=== PATIENT | female | born 1935 | race Caucasian/White ===

== ENCOUNTER 2018-04-24 07:48 | Inpatient (IN) | END 2018-04-25 13:13 | disposition home or self-care (01) | DRG 483 ==

== ENCOUNTER 2018-08-15 14:58 | Inpatient (IN) | payer MEDICARE, BC ==
[~2018-08-15] VITALS: Ht 160 cm; Wt 53.4 kg
[~2018-08-15 14:58] MED LIST: ACET-141 PO; APIX5TAB PO; CHOL500010 PO; CYAN100080 PO; ESOM40CA PO; LEVO125T71 PO; METO-335 PO; MIRT15TA PO; MULTI PO; NALO25TA PO; ONDA4TAB13 PO; PANT40TA3 PO; RANI300T PO
[2018-08-15] MEDS ORDERED: SOD CHLORIDE 0.9% 1,000 ML IV STA (18:10)
[2018-08-15] MEDS ORDERED: KETOROLAC 15 MG INJ IV STA (18:10)
--- NOTE | 2018-08-15 18:38 | ERD ---
ER Documentation Chief Complaint Chief Complaint RIGHT HIP/RIGHT SHOULDER PAIN S/P FALL AT 08/14 AT HS HPI 82-year-old woman brought in by EMS for left shoulder right hip pain after falling about half a days ago. She was laying on the floor for about 14 hours and had difficulty getting up after the fall. She is status post recent left shoulder arthroplasty. She has had no recent fevers or chills, and has no complaints of chest pain or shortness of breath. ROS All systems reviewed and are negative except as per history of present illness. Medications Home Meds Reported Medications Mirtazapine* (Remeron*) 15 Mg Tablet, 15 MG PO HS, TAB 04/24/18 Ranitidine Hcl* (Ranitidine Hcl*) 300 Mg Tablet, 300 MG PO HS, #30 TAB 04/24/18 Pantoprazole* (Protonix*) 40 Mg Tablet.dr, 40 MG PO BID, TAB 04/24/18 Ondansetron Hcl* (Zofran*) 4 Mg Tab, 4 MG PO Q6H PRN for NAUSEA AND OR VOMITING, TAB 04/24/18 Cholecalciferol (Vitamin D3) 5,000 Unit Tablet, 5000 UNIT PO DAILY, TAB 04/24/18 Cyanocobalamin* (Vitamin B-12*) 1,000 Mcg Tablet.sa, 1000 MCG PO DAILY, TAB 04/24/18 Apixaban* (Eliquis*) 5 Mg Tablet, 5 MG PO BID, TAB 04/24/18 Levothyroxine Sodium* (Levoxyl*) 125 Mcg Tablet, 125 MCG PO BEFORE BREAKFAST, #30 TAB 04/24/18 Metoprolol Succinate* (Toprol XL*) 25 Mg Tab.sr.24h, 25 MG PO BID, #30 TAB 04/24/18 Naloxegol Oxalate (Movantik) 25 Mg Tablet, 25 MG PO AC BREAKFAST, TAB 04/24/18 Multivitamins* (Theragran*) 1 Tab Tab, 1 TAB PO DAILY, TAB 04/24/18 Esomeprazole Mag Trihydrate (Nexium) 40 Mg Capsule.dr, 40 MG PO DAILY, #30 CAP 04/24/18 Acetaminophen* (Acetaminophen*) 500 MG Extra Strength Tablet, 500 MG PO Q4H PRN for PAIN AND OR ELEVATED TEMP, TAB 04/24/18 Allergies Allergies: Coded Allergies: morphine (Verified Allergy, Intermediate, itchiness, 08/15/18) PMhx/Soc Multiple orthopedic surgeries, gastritis, hypertension, hypothyroidism, osteoarthritis History of Surgery: Yes Anesthesia Reaction: No Hx Neurological Disorder: No Hx Respiratory Disorders: No Hx Cardiac Disorders: Yes (A.FIB) Hx Psychiatric Problems: No Hx Miscellaneous Medical Probl: No Hx Alcohol Use: No Hx Substance Use: No Hx Tobacco Use: No FmHx Family History: No diabetes Physical Exam Vitals Vital Signs Date Temp Pulse Resp B/P (MAP) Pulse Ox O2 O2 Flow FiO2 Time Delivery Rate 08/15/18 100.0 108 22 148/75 98 15:12 (99) Physical Exam Const: No acute distress, appears dehydrated, afebrile Head: Atraumatic Eyes: Normal Conjunctiva ENT: Dry mucous membranes Neck: Full range of motion. No meningismus. Resp: Clear to auscultation bilaterally Cardio: Tachycardic and regular, no murmurs Abd: Soft, non tender, non distended. Normal bowel sounds Skin: No petechiae or rashes, intact skin no obvious abrasions or contusions noted Back: No midline or flank tenderness Ext: Osteoarthritic changes noted to her knees with valgus deformity, she has near full range of motion at the left shoulder, no obvious soft tissue swelling ecchymosis, or hematomas noted Neur: Awake and alert x3, no focal deficits or facial asymmetry, pupils equal round reactive to light Psych: Normal Mood and Affect Result Diagram: 08/15/185 08/15/18 184 Results 24 hrs Laboratory Tests Test 08/15/18 18:45 08/15/18 19:30 White Blood Count 10.5 10^3/ul Red Blood Count 3.83 10^6/ul Hemoglobin 12.3 g/dl Hematocrit 35.6 % Mean Corpuscular Volume 93.0 fl Mean Corpuscular Hemoglobin 32.1 pg Mean Corpuscular Hemoglobin Concent 34.6 g/dl Red Cell Distribution Width 13.4 % Platelet Count 146 10^3/UL Mean Platelet Volume 10.5 fl Immature Granulocytes % 0.500 % Neutrophils % 89.3 % Lymphocytes % 2.0 % Monocytes % 7.8 % Eosinophils % 0.1 % Basophils % 0.3 % Nucleated Red Blood Cells % 0.0 /100WBC Immature Granulocytes # 0.050 10^3/ul Neutrophils # 9.3 10^3/ul Lymphocytes # 0.2 10^3/ul Monocytes # 0.8 10^3/ul Eosinophils # 0.0 10^3/ul Basophils # 0.0 10^3/ul Nucleated Red Blood Cells # 0.0 10^3/ul Prothrombin Time 16.1 Sec Prothrombin Time Ratio 1.3 INR International Normalized Ratio 1.28 Activated Partial Thromboplast Time 36.5 Sec Sodium Level 123 mmol/L Potassium Level 4.6 mmol/L Chloride Level 89 mmol/L Carbon Dioxide Level 26 mmol/L Anion Gap 8 Blood Urea Nitrogen 17 mg/dl Creatinine 0.68 mg/dl Est Glomerular Filtrat Rate mL/min mL/min Glucose Level 115 mg/dl Calcium Level 9.9 mg/dl Total Bilirubin 1.5 mg/dl Direct Bilirubin 0.00 mg/dl Indirect Bilirubin 1.5 mg/dl Aspartate Amino Transf (AST/SGOT) 65 IU/L Alanine Aminotransferase (ALT/SGPT) 41 IU/L Alkaline Phosphatase 174 IU/L Creatine Kinase 237 IU/L Troponin I < 0.012 ng/ml Total Protein 7.2 g/dl Albumin 4.5 g/dl Globulin 2.70 g/dl Albumin/Globulin Ratio 1.66 Lipase 51 U/L Urine Color YELLOW Urine Clarity CLEAR Urine pH 6.0 Urine Specific [place] 1.012 Urine Ketones TRACE mg/dL Urine Nitrite NEGATIVE mg/dL Urine Bilirubin NEGATIVE mg/dL Urine Urobilinogen NEGATIVE mg/dL Urine Leukocyte Esterase NEGATIVE [place]/ul Urine Microscopic RBC 6 /HPF Urine Microscopic WBC 0 /HPF Urine Hemoglobin 1+ mg/dL Urine Glucose NEGATIVE mg/dL Urine Total Protein NEGATIVE mg/dl Current Medications Medications Dose Sig/Melissa Start Time Status Last (Trade) Ordered Route PRN Stop Time Admin Dose Reason Admin Sodium 1,000 ml @ Q1H STAT 08/15/18 DC 08/15/18 Chloride 1,000 mls/hr IV 18:10 18:42 08/15/18 19:09 Ketorolac 15 mg ONCE STAT 08/15/18 DC 08/15/18 Tromethamine IV 18:10 18:42 (Toradol) 08/15/18 18:15 Procedures/MDM IV line was established patient was placed on printer floor covering assistant rhythm strip revealed a sinus tachycardia at 120 bpm with upright P and T waves. Patient was afebrile I administered 1 L normal saline IV for dehydration and Toradol 15 mg IV x1 EKG performed, read by me revealed a sinus tachycardia at 111 bpm, normal axis, narrow QRS complex, no concerning ST elevations or depressions noted One AP view of the chest performed, read by me reveals no acute infiltrates, normal mediastinum, sharp costophrenic and cardiac borders, no air under the diaphragm. Otherwise unremarkable chest x-ray. X-ray left shoulder 3V Interpreted by me: Bones: No fracture Joints: No dislocation Foreign body: Positive hemiarthroplasty X-ray Pelvis 1V Interpreted by me: Bones: Right medial pubis fracture Joints: No dislocation Foreign body: Bilateral hip arthroplasty with hardware in place X-ray right hip 2V Interpreted by me: Bones: No fracture Joints: No dislocation Foreign body: Hemiarthroplasty with hardware in place CT scan of the brain was negative for acute bleed mass or shift CT scan of the pelvis was performed,IMPRESSION: 1. Comminuted fracture of the right parasymphyseal region, and at the inferior right superior pubic ramus. 2. Nondisplaced fractures are seen at the inferior lateral right sacral ala. 3. Fracture of the anterior superior S3 vertebral body. 4. Bilateral hip arthroplasty, without evident hardware complication. CBC was normal, electrolytes revealed mild dehydration and hyponatremia, liver function tests normal, troponin negative, CK total within normal limits, UA negative for infection. Patient admitted to [facility] for continued medical management and orthopedic consultation, I spoke to orthopedic surgeon on-call Dr. Panchal who agreed to consult the patient Departure Diagnosis: Primary Impression: Pelvic fracture Encounter type: initial encounter Pelvic bone location: pubis Sublocation of pubis: other portion of pubis Fracture type: closed Laterality: right Qualified Codes: S32.591A - Other specified fracture of right pubis, initi al encounter for closed fracture Additional Impressions: Dehydration Acute hyponatremia Condition: GIO Naik MD Aug 15, 2018 18:38
[2018-08-15 20:45] VITALS: BP 146/89; PULSE 106; RESP 18
[2018-08-15 21:30] VITALS: Ht 160 cm; Wt 53.4 kg
[2018-08-15] MEDS ORDERED: ACETAMINOPHEN 500 MG TAB PO PRN (22:00)
[2018-08-15] MEDS ORDERED: ONDANSETRON 4 MG INJ IV PRN (22:00)
[2018-08-16 02:28] VITALS: BP 142/81; PULSE 112; RESP 19
[2018-08-16] MEDS: LEVOTHYROXINE 125 MCG TAB PO SCH (06:08)
[2018-08-16 07:55] VITALS: BP 141/85; PULSE 106; RESP 18
[2018-08-16] MEDS: POLYETHYLENE GLYCOL 17 GM PACKET PO SCH (09:00)
[2018-08-16] MEDS ORDERED: APIXABAN 5 MG TABLET PO SCH (09:00)
[2018-08-16] MEDS: CHOLECALCIFEROL 1,000 UNIT TAB PO SCH (09:08)
[2018-08-16] MEDS: MULTIVITAMINS THERAPEUTIC TAB PO SCH (09:08)
[2018-08-16] MEDS: DOCUSATE SODIUM 100 MG CAP PO SCH ×2 (09:08→20:44)
[2018-08-16] MEDS: PANTOPRAZOLE (EC) 40 MG TAB PO SCH (09:08)
[2018-08-16] MEDS: METOPROLOL (XL) 25 MG TAB PO SCH ×2 (09:09→20:46)
[2018-08-16] MEDS: CYANOCOBALAMIN 500 MCG TAB PO SCH (09:54)
--- NOTE | 2018-08-16 11:35 | CONS ---
Assessment/Plan Assessment/Plan Hospital Course (Demo Recall) This is a 82-year-old female who is 2 days after a ground-level fall who suffered a right pelvic ring fracture LC 1. This is stable. She can weight- bear as tolerated with a walker. There is no concerns with any acute injury to her left shoulder hemiarthroplasty. Plan: Weight-bear as tolerated with walker DVT prophylaxis: SCDs bilateral legs and Lovenox 40 mg daily times 6 weeks Physical therapy Continue follow-up with Dr. Elizalde as scheduled discharge planning follow-up In my clinic at [facility] in the [place] in 2 weeks Consultation Date/Type/Reason Admit Date/Time Aug 15, 2018 at 19:33 Date of Consultation: Aug 16, 2018 Date/Time of Note DATE: 08/16/18 TIME: 11:21 Hx of Present Illness Taya Parker is an 82-year-old female who presented to the emergency department at [facility] last night status post a ground-level fall. She fell night at her home. She was unable to get up and unfortunately remained on the floor overnight until Saturday. She denies any trauma to her head or loss of consciousness. She fell on her right side. And had right-sided hip pain. She sometimes uses a cane but was not using any gait aid at that time. Denies any numbness and tingling in any of her extremities. Of note she is almost 4 months status post left shoulder hemiarthroplasty by Dr. Arpit Elizalde. She underwent an office and the about a week and a half ago for what sounds like a suture abscess. She denies any increased pain or discomfort in h er shoulder after falling. Patient denies fever, chills, shortness of breath, chest pain, nausea/vomiting, constipation, diarrhea, numbness, and tingling. Past Medical History Home Meds Reported Medications Mirtazapine* (Remeron*) 15 Mg Tablet, 15 MG PO HS, TAB 04/24/18 Ranitidine Hcl* (Ranitidine Hcl*) 300 Mg Tablet, 300 MG PO HS, #30 TAB 04/24/18 Pantoprazole* (Protonix*) 40 Mg Tablet.dr, 40 MG PO BID, TAB 04/24/18 Ondansetron Hcl* (Zofran*) 4 Mg Tab, 4 MG PO Q6H PRN for NAUSEA AND OR VOMITING, TAB 04/24/18 Cholecalciferol (Vitamin D3) 5,000 Unit Tablet, 5000 UNIT PO DAILY, TAB 04/24/18 Cyanocobalamin* (Vitamin B-12*) 1,000 Mcg Tablet.sa, 1000 MCG PO DAILY, TAB 04/24/18 Apixaban* (Eliquis*) 5 Mg Tablet, 5 MG PO BID, TAB 04/24/18 Levothyroxine Sodium* (Levoxyl*) 125 Mcg Tablet, 125 MCG PO BEFORE BREAKFAST, # 30 TAB 04/24/18 Metoprolol Succinate* (Toprol XL*) 25 Mg Tab.sr.24h, 25 MG PO BID, #30 TAB 04/24/18 Naloxegol Oxalate (Movantik) 25 Mg Tablet, 25 MG PO AC BREAKFAST, TAB 04/24/18 Multivitamins* (Theragran*) 1 Tab Tab, 1 TAB PO DAILY, TAB 04/24/18 Esomeprazole Mag Trihydrate (Nexium) 40 Mg Capsule.dr, 40 MG PO DAILY, #30 CAP 04/24/18 Acetaminophen* (Acetaminophen*) 500 MG Extra Strength Tablet, 500 MG PO Q4H PRN for PAIN AND OR ELEVATED TEMP, TAB 04/24/18 Medications Current Medications Acetaminophen (Tylenol Tab) 500 mg Q4H PRN PO MILD PAIN(1-3)OR ELEVATED TEMP; Start 08/15/18 at 22:00 Apixaban (Eliquis) 5 mg BID PO Last administered on 08/16/18 09:08; Admin Dose 5 MG; Start 08/16/18 at 09:00 Cholecalciferol (Vitamin D) 5,000 unit DAILY PO Last administered on 08/16/18at 09:08; Admin Dose 5,000 UNIT; Start 08/16/18 at 09:00 Cyanocobalamin (Vitamin B12) 1,000 mcg DAILY PO Last administered on 08/16/18at 09:54; Admin Dose 1,000 MCG; Start 08/16/18 at 09:00 Levothyroxine Sodium (Synthroid) 125 mcg BEFORE BREAKFAST PO Last administered on 08/16/18at 06:08; Admin Dose 125 MCG; Start 08/16/18 at 07:00 Metoprolol Succinate (Toprol Xl) 25 mg BID PO Last administered on 2/23/19at 09:09; Admin Dose 25 MG; Start 08/16/18 at 09:00 Mirtazapine (Remeron) 15 mg HS PO ; Start 08/16/18 at 21:00 Multivitamins Therapeutic (Theragran) 1 tab DAILY PO Last administered on 08/16/18at 09:08; Admin Dose 1 TAB; Start 08/16/18 at 09:00 Pantoprazole (Protonix Tab) 40 mg DAILY PO Last administered on 08/16/18at 09:08; Admin Dose 40 MG; Start 08/16/18 at 09:00 Ondansetron HCl (Zofran Inj) 4 mg Q6H PRN IV NAUSEA AND/OR VOMITING; Start 08/15/18 at 22:00 Polyethylene Glycol (Miralax) 17 gm DAILY PO ; Start 08/16/18 at 09:00 Docusate Sodium (Colace) 100 mg BID PO Last administered on 08/16/18at 09:08; Admin Dose 100 MG; Start 08/16/18 at 09:00 Acetaminophen/ Hydrocodone Bitart ([place] (5/325)) 1 tab Q4H PRN PO MODERATE PAIN LEVEL 4-6; Start 08/15/18 at 22:30 Allergies: Coded Allergies: morphine (Verified Allergy, Intermediate, itchiness, 08/15/18) Social History Alcohol Use: occasionally Smoking Status: Former smoker Exam/Review of Systems Exam Vitals Vital Signs Date Temp Pulse Resp B/P (MAP) Pulse Ox O2 O2 Flow FiO2 Time Delivery Rate 08/16/18 97.9 106 18 141/85 90 Room Air 07:55 (103) Exam General: Awake, alert, in no acute distress, pleasant and cooperative Heart: regular rhythm Lungs: breathing comfortably, no tachypnea or dyspnea MUSCULOSKELETAL: Left upper extremity: Incision is clean dry and intact except for a 2 mm area with an eschar. There is no erythema or swelling. Patient is able to forward flex and abduct approximately 90 degrees. Sensation intact to light touch in a median, ulnar, radial, and axillary distribution. Motor is intact in a median, ulnar, radial, anterior interosseous, and posterior interosseous nerve distribution. Radial and ulnar artery are +2. Wrist extension and flexion are intact. Compartments are soft. Right lower extremity/pelvis: There is no gross deformity to the leg. There is no shortening or malrotation. There is groin pain to logroll. There is tenderness to palpation over the groin and right sacral ala. Patient is able to perform a straight leg raise but with pain. Sensation intact to light touch in a sural, saphenous, deep peroneal, superficial peroneal, medial and lateral plantar nerve distribution. Motor is intact, patient able to dorsiflex and plantarflex ankle and extend and flex great toe. Dorsalis Pedis pulse +2, Brisk capillary refill. Compartments are soft. Calves non-tender to palpation bilaterally. Results Result Diagram: 08/16/18 0431 08/16/18 0431 Results 24hrs Laboratory Tests Test 08/15/18 18:45 08/15/18 19:30 08/16/18 04:31 White Blood Count 10.5 7.0 # Red Blood Count 3.83 L 3.35 L Hemoglobin 12.3 10.9 L Hematocrit 35.6 L 31.1 L Mean Corpuscular Volume 93.0 92.8 Mean Corpuscular Hemoglobin 32.1 32.5 Mean Corpuscular Hemoglobin Concent 34.6 35.0 Red Cell Distribution Width 13.4 13.3 Platelet Count 146 115 #L Mean Platelet Volume 10.5 H 11.7 H Immature Granulocytes % 0.500 H 0.300 Neutrophils % 89.3 H 84.7 H Lymphocytes % 2.0 L 4.4 L Monocytes % 7.8 9.7 Eosinophils % 0.1 0.6 Basophils % 0.3 0.3 Nucleated Red Blood Cells % 0.0 0.0 Immature Granulocytes # 0.050 H 0.020 Neutrophils # 9.3 H 5.9 Lymphocytes # 0.2 L 0.3 L Monocytes # 0.8 0.7 Eosinophils # 0.0 0.0 Basophils # 0.0 0.0 Nucleated Red Blood Cells # 0.0 0.0 Prothrombin Time 16.1 H Prothrombin Time Ratio 1.3 INR International Normalized Ratio 1.28 Activated Partial Thromboplast Time 36.5 H Sodium Level 123 L 127 L Potassium Level 4.6 4.6 Chloride Level 89 L 93 L Carbon Dioxide Level 26 27 Anion Gap 8 7 Blood Urea Nitrogen 17 21 H Creatinine 0.68 0.88 Est Glomerular Filtrat Rate mL/min Glucose Level 115 82 Calcium Level 9.9 9.2 Total Bilirubin 1.5 H 1.3 Direct Bilirubin 0.00 0.00 Indirect Bilirubin 1.5 H 1.3 H Aspartate Amino Transf (AST/SGOT) 65 H 47 H Alanine Aminotransferase (ALT/SGPT) 41 26 Alkaline Phosphatase 174 H 126 H Creatine Kinase 237 H Troponin I < 0.012 Total Protein 7.2 5.7 #L Albumin 4.5 3.4 # Globulin 2.70 2.30 Albumin/Globulin Ratio 1.66 1.47 Lipase 51 Urine Color YELLOW Urine Clarity CLEAR Urine pH 6.0 Urine Specific [place] 1.012 Urine Ketones TRACE A Urine Nitrite NEGATIVE Urine Bilirubin NEGATIVE Urine Urobilinogen NEGATIVE Urine Leukocyte Esterase NEGATIVE Urine Microscopic RBC 6 H Urine Microscopic WBC 0 Urine Hemoglobin 1+ H Urine Glucose NEGATIVE Urine Total Protein NEGATIVE Thyroid Stimulating Hormone (TSH) < 0.015 L Imaging Imaging AP pelvis and AP lateral of right hip were reviewed: There is acute fracture of the right inferior and superior pubic rami. There is questionable fracture of the right sacral ala. She is status post bilateral total hip arthroplasties with no acute complications. CT scan of the pelvis: Acute fracture of the right inferior and superior pubic rami were again demonstrated. CT scan confirmed there is a comminuted nondisplaced right sacral ala fracture along the inferior portion of the sacrum. There is also nondisplaced S3 fracture. No periprosthetic fracture of bilateral total hip arthroplasties. 3 views of the left upper extremity: Left shoulder hemiarthroplasty again appreciated. The component is cemented. No change in position from previous x- ray. Humeral head is high riding which is consistent with rotator cuff tear. There is acetabular lesion of the acromion. Medications Medication Current Medications Acetaminophen (Tylenol Tab) 500 mg Q4H PRN PO MILD PAIN(1-3)OR ELEVATED TEMP; Start 08/15/18 at 22:00 Apixaban (Eliquis) 5 mg BID PO Last administered on 08/16/18at 09:08; Admin Dose 5 MG; Start 08/16/18 at 09:00 Cholecalciferol (Vitamin D) 5,000 unit DAILY PO Last administered on 08/16/18at 09:08; Admin Dose 5,000 UNIT; Start 08/16/18 at 09:00 Cyanocobalamin (Vitamin B12) 1,000 mcg DAILY PO Last administered on 08/16/18at 09:54; Admin Dose 1,000 MCG; Start 08/16/18 at 09:00 Levothyroxine Sodium (Synthroid) 125 mcg BEFORE BREAKFAST PO Last administered on 08/16/18 06:08; Admin Dose 125 MCG; Start 08/16/18 at 07:00 Metoprolol Succinate (Toprol Xl) 25 mg BID PO Last administered on 08/16/18 09:09; Admin Dose 25 MG; Start 08/16/18 at 09:00 Mirtazapine (Remeron) 15 mg HS PO ; Start 08/16/18 at 21:00 Multivitamins Therapeutic (Theragran) 1 tab DAILY PO Last administered on 08/16/18 09:08; Admin Dose 1 TAB; Start 08/16/18 at 09:00 Pantoprazole (Protonix Tab) 40 mg DAILY PO Last administered on 08/16/18at 09:08; Admin Dose 40 MG; Start 08/16/18 at 09:00 Ondansetron HCl (Zofran Inj) 4 mg Q6H PRN IV NAUSEA AND/OR VOMITING; Start 08/15/18 at 22:00 Polyethylene Glycol (Miralax) 17 gm DAILY PO ; Start 08/16/18 at 09:00 Docusate Sodium (Colace) 100 mg BID PO Last administered on 08/16/18at 09:08; Admin Dose 100 MG; Start 08/16/18 at 09:00 Acetaminophen/ Hydrocodone Bitart ([place] (5/325)) 1 tab Q4H PRN PO MODERATE PAIN LEVEL 4-6; Start 08/15/18 at 22:30 WILMAR MARTINEZ MD Aug 16, 2018 11:33
--- NOTE | 2018-08-16 14:38 | HP ---
Date/Time of Note Date/Time of Note DATE: 08/16/18 TIME: 14:21 Assessment/Plan VTE Prophylaxis Risk score (from Nsg)>0 risk: 5 SCD applied (from Nsg): Yes Pharmacological prophylaxis: apixaban Lines/Catheters IV Catheter Type (from Nrsg): Peripheral IV Assessment/Plan Hospital Course 82 y/o female with mmp admitted after glf resulting in pelvic fracture, being managed non operatively, planned for ARU transfer. Assessment/Plan #pelvic fracture -appreciate ortho recs -judicious pain management -wb as tolerated with walker -PT, ARU consult -already on eliquis #hyponatremia-likely 2/2 dehydration -will replete fluids with NS 70 cc/hr x 24 hours -encourage PO intake #tachycardia-mild, likely 2/2 dehydration -IVF #low uop-likely 2/2 dehydration -IVF #afib -eliquis, MTP #GERD -ppi #hypothyrodism-suppressed TSH possibly in the setting of non thyroid illness -continue home dose of levothyroxine now -will need to recheck TSH and Ft4 down the road Discussed case and plan of care at length with patient, daughter, and nursing. Dispo: medically stable for ARU transfer. Result Diagram: 08/16/18 0431 08/16/18 0431 Results 24hrs Laboratory Tests Test 08/15/18 18:45 08/15/18 19:30 08/16/18 04:31 White Blood Count 10.5 7.0 # Red Blood Count 3.83 L 3.35 L Hemoglobin 12.3 10.9 L Hematocrit 35.6 L 31.1 L Mean Corpuscular Volume 93.0 92.8 Mean Corpuscular Hemoglobin 32.1 32.5 Mean Corpuscular Hemoglobin Concent 34.6 35.0 Red Cell Distribution Width 13.4 13.3 Platelet Count 146 115 #L Mean Platelet Volume 10.5 H 11.7 H Immature Granulocytes % 0.500 H 0.300 Neutrophils % 89.3 H 84.7 H Lymphocytes % 2.0 L 4.4 L Monocytes % 7.8 9.7 Eosinophils % 0.1 0.6 Basophils % 0.3 0.3 Nucleated Red Blood Cells % 0.0 0.0 Immature Granulocytes # 0.050 H 0.020 Neutrophils # 9.3 H 5.9 Lymphocytes # 0.2 L 0.3 L Monocytes # 0.8 0.7 Eosinophils # 0.0 0.0 Basophils # 0.0 0.0 Nucleated Red Blood Cells # 0.0 0.0 Prothrombin Time 16.1 H Prothrombin Time Ratio 1.3 INR International Normalized Ratio 1.28 Activated Partial Thromboplast Time 36.5 H Sodium Level 123 L 127 L Potassium Level 4.6 4.6 Chloride Level 89 L 93 L Carbon Dioxide Level 26 27 Anion Gap 8 7 Blood Urea Nitrogen 17 21 H Creatinine 0.68 0.88 Est Glomerular Filtrat Rate mL/min Glucose Level 115 82 Calcium Level 9.9 9.2 Total Bilirubin 1.5 H 1.3 Direct Bilirubin 0.00 0.00 Indirect Bilirubin 1.5 H 1.3 H Aspartate Amino Transf (AST/SGOT) 65 H 47 H Alanine Aminotransferase (ALT/SGPT) 41 26 Alkaline Phosphatase 174 H 126 H Creatine Kinase 237 H Troponin I < 0.012 Total Protein 7.2 5.7 #L Albumin 4.5 3.4 # Globulin 2.70 2.30 Albumin/Globulin Ratio 1.66 1.47 Lipase 51 Urine Color YELLOW Urine Clarity CLEAR Urine pH 6.0 Urine Specific [place] 1.012 Urine Ketones TRACE A Urine Nitrite NEGATIVE Urine Bilirubin NEGATIVE Urine Urobilinogen NEGATIVE Urine Leukocyte Esterase NEGATIVE Urine Microscopic RBC 6 H Urine Microscopic WBC 0 Urine Hemoglobin 1+ H Urine Glucose NEGATIVE Urine Total Protein NEGATIVE Thyroid Stimulating Hormone (TSH) < 0.015 L HPI/ROS Admit Date/Time Admit Date/Time Aug 15, 2018 at 19:33 Hx of Present Illness 82 y/o female with mmp documented below who suffered from ground level fall on the night of the 08/14. She went to a [employer] game and her daughter state she had too many alcoholic drinks. She lost her balance and slipped when she got home and fell on her right side. She remained on the floor for at least 14 hours. In ER she had multiple xrays/pelvic CT, was found to have a right pelvic ring fracture LC 1. Of note, she is almost 4 months status post left shoulder hemiarthroplasty by Dr. Arpit Elizalde. She denies any increased pain or dis comfort in her shoulder after falling. Patient was evaluated by orthopedic surgery since her admission and recommended non operative management. ROS At the current time patient denies chest pain, sob, fever, chills, nausea, vomiting, diarrhea, constipation, abdominal pain. Endorses that her pelvic pain is adequately controlled. Does not have pain at rest but does have pain with movement. She denied any trauma to her head or LOC. 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, history of breast cancer, GERD, osteoporosis, insomnia, mild depression Medications Current Medications Acetaminophen (Tylenol Tab) 500 mg Q4H PRN PO MILD PAIN(1-3)OR ELEVATED TEMP; Start 08/15/18 at 22:00 Apixaban (Eliquis) 5 mg BID PO Last administered on 08/16/18 09:08; Admin Dose 5 MG; Start 08/16/18 at 09:00 Cholecalciferol (Vitamin D) 5,000 unit DAILY PO Last administered on 08/16/18 09:08; Admin Dose 5,000 UNIT; Start 08/16/18 at 09:00 Cyanocobalamin (Vitamin B12) 1,000 mcg DAILY PO Last administered on 08/16/18at 09:54; Admin Dose 1,000 MCG; Start 08/16/18 at 09:00 Levothyroxine Sodium (Synthroid) 125 mcg BEFORE BREAKFAST PO Last administered on 08/16/18 06:08; Admin Dose 125 MCG; Start 08/16/18 at 07:00 Metoprolol Succinate (Toprol Xl) 25 mg BID PO Last administered on 08/16/18 09:09; Admin Dose 25 MG; Start 08/16/18 at 09:00 Mirtazapine (Remeron) 15 mg HS PO ; Start 08/16/18 at 21:00 Multivitamins Therapeutic (Theragran) 1 tab DAILY PO Last administered on 08/16/18 09:08; Admin Dose 1 TAB; Start 08/16/18 at 09:00 Pantoprazole (Protonix Tab) 40 mg DAILY PO Last administered on 08/16/18 09:08; Admin Dose 40 MG; Start 08/16/18 at 09:00 Ondansetron HCl (Zofran Inj) 4 mg Q6H PRN IV NAUSEA AND/OR VOMITING; Start 08/15/18 at 22:00 Polyethylene Glycol (Miralax) 17 gm DAILY PO ; Start 08/16/18 at 09:00 Docusate Sodium (Colace) 100 mg BID PO Last administered on 08/16/18at 09:08; Admin Dose 100 MG; Start 08/16/18 at 09:00 Acetaminophen/ Hydrocodone Bitart ([place] (5/325)) 1 tab Q4H PRN PO MODERATE PAIN LEVEL 4-6; Start 08/15/18 at 22:30 Sodium Chloride 1,000 ml @ 70 mls/hr [id number] IV ; Start 08/16/18 at 14:30; Stop 08/17/18 at 14:29; Status UNV Coded Allergies: morphine (Verified Allergy, Intermediate, itchiness, 08/15/18) Past Surgical History wisdom teeth, cataracts, bilateral hip replacement, R shoulder replacement, breast lumpectomy, R retina surgery, Family History Significant Family History: no pertinent family hx Social History lives alone at home. Daughter reports she has an issue with alcohol abuse. Alcohol Use: occasionally Smoking Status: Former smoker Drug Use: none Exam/Review of Systems Vital Signs Vitals Vital Signs Date Temp Pulse Resp B/P (MAP) Pulse Ox O2 O2 Flow FiO2 Time Delivery Rate 08/16/18 97.9 106 18 141/85 90 Room Air 07:55 (103) Exam Exam Gen-NAD HEENT-OP clear, dry mucus membranes CV-irregularly irregular, mild tachycardia Pulm-CTAB on anterior and posterior exam Abd-soft, NT,ND, +BS EXt-No c/c/e DUNCAN VELA MD Aug 16, 2018 14:31
[2018-08-16 14:43] VITALS: BP 138/76; PULSE 110; RESP 18
[2018-08-16] MEDS: SOD CHLORIDE 0.9% 1,000 ML IV SCH (15:50)
[2018-08-16 20:26] VITALS: BP 153/67; PULSE 105; RESP 18
[2018-08-16] MEDS: APIXABAN 5 MG TABLET PO SCH (20:46)
[2018-08-16] MEDS ORDERED: MIRTAZAPINE 15 MG TAB PO SCH (21:00)
[2018-08-17] MEDS: HYDROCODONE/APAP (5/325) TAB PO PRN ×2 (01:50→09:53)
[2018-08-17 02:17] VITALS: BP 146/89; PULSE 100; RESP 18
[2018-08-17] MEDS: SOD CHLORIDE 0.9% 1,000 ML IV SCH (04:48)
[2018-08-17] MEDS: LEVOTHYROXINE 125 MCG TAB PO SCH (06:13)
[2018-08-17 07:47] VITALS: BP 129/72; PULSE 91; RESP 15
[2018-08-17] MEDS: CHOLECALCIFEROL 1,000 UNIT TAB PO SCH (08:58)
[2018-08-17] MEDS: CYANOCOBALAMIN 500 MCG TAB PO SCH (08:58)
[2018-08-17] MEDS: DOCUSATE SODIUM 100 MG CAP PO SCH (08:58)
[2018-08-17] MEDS: PANTOPRAZOLE (EC) 40 MG TAB PO SCH (08:59)
[2018-08-17] MEDS: MULTIVITAMINS THERAPEUTIC TAB PO SCH (08:59)
[2018-08-17] MEDS: APIXABAN 5 MG TABLET PO SCH (08:59)
[2018-08-17] MEDS: POLYETHYLENE GLYCOL 17 GM PACKET PO SCH (09:00)
[2018-08-17] MEDS: METOPROLOL (XL) 25 MG TAB PO SCH (09:00)
--- NOTE | 2018-08-17 09:57 | PN ---
Date/Time of Note Date/Time of Note DATE: 08/17/18 TIME: 09:54 Subjective Patient denies fevers, chills,nausea,vomiting, diarrhea, constipation,chest pain, sob,cough, abdominal pain. Pain adequately controlled. Worked with PT this am. Accepted to ARU Objective Vitals Vital Signs Date Temp Pulse Resp B/P (MAP) Pulse Ox O2 O2 Flow FiO2 Time Delivery Rate 08/17/18 98.0 91 15 129/72 96 Room Air 07:47 (91) Intake and Output 08/16/18 08/16/18 08/17/18 1515:00 23:00 07:00 IntakeIntake Total 450 ml 410 ml 1000 ml OutputOutput Total 500 ml 500 ml BalanceBalance 450 ml -90 ml 500 ml Gen-NAD HEENT-OP clear, dry mucus membranes CV-irregularly irregular, mild tachycardia Pulm-CTAB on anterior and posterior exam Abd-soft, NT,ND, +BS EXt-No c/c/e Results Result Diagram: 08/17/18 0423 08/17/18 0423 Medications Medications Current Medications Acetaminophen (Tylenol Tab) 500 mg Q4H PRN PO MILD PAIN(1-3)OR ELEVATED TEMP; Start 08/15/18 at 22:00 Cholecalciferol (Vitamin D) 5,000 unit DAILY PO Last administered on 08/17/18 08:58; Admin Dose 5,000 UNIT; Start 08/16/18 at 09:00 Cyanocobalamin (Vitamin B12) 1,000 mcg DAILY PO Last administered on 08/17/18 08:58; Admin Dose 1,000 MCG; Start 08/16/18 at 09:00 Levothyroxine Sodium (Synthroid) 125 mcg BEFORE BREAKFAST PO Last administered on 08/17/18 06:13; Admin Dose 125 MCG; Start 08/16/18 at 07:00 Metoprolol Succinate (Toprol Xl) 25 mg BID PO Last administered on 08/17/18 09:00; Admin Dose 25 MG; Start 08/16/18 at 09:00 Mirtazapine (Remeron) 15 mg HS PO Last administered on 08/16/18at 20:44; Admin Dose 15 MG; Start 08/16/18 at 21:00 Multivitamins Therapeutic (Theragran) 1 tab DAILY PO Last administered on 08/17/18 08:59; Admin Dose 1 TAB; Start 08/16/18 at 09:00 Pantoprazole (Protonix Tab) 40 mg DAILY PO Last administered on 08/17/18 08:59; Admin Dose 40 MG; Start 08/16/18 at 09:00 Ondansetron HCl (Zofran Inj) 4 mg Q6H PRN IV NAUSEA AND/OR VOMITING; Start 08/15/18 at 22:00 Polyethylene Glycol (Miralax) 17 gm DAILY PO ; Start 08/16/18 at 09:00 Docusate Sodium (Colace) 100 mg BID PO Last administered on 08/17/18 08:58; Admin Dose 100 MG; Start 08/16/18 at 09:00 Acetaminophen/ Hydrocodone Bitart ([place] (5/325)) 1 tab Q4H PRN PO MODERATE PAIN LEVEL 4-6 Last administered on 08/17/18 01:50; Admin Dose 1 TAB; Start 08/15/18 at 22:30 Sodium Chloride 1,000 ml @ 70 mls/hr [id number] IV Last administered on 08/16/18 15:50; Admin Dose 70 MLS/HR; Start 08/16/18 at 14:30; Stop 08/17/18 at 14:29 Apixaban (Eliquis) 2.5 mg BID PO Last administered on 08/17/18 08:59; Admin Dose 2.5 MG; Start 08/16/18 at 21:00 VTE Prophylaxis Risk score (from Ns)>0 risk: 5 SCD applied (from Nsg): Yes Lines/Catheters IV Catheter Type: Saline [place] in Place: No Assessment/Plan Hospital Course 82 y/o female with mmp admitted after glf resulting in pelvic fracture, being managed non operatively, planned for ARU transfer. Assessment/Plan #pelvic fracture -appreciate ortho recs -judicious pain management -wb as tolerated with walker -PT, ARU consult -already on eliquis,dose adjusted #hyponatremia-likely 2/2 dehydration, no improvement with 1 L NS. am cortisol >5. true hyponatremia. -will replete fluids with NS 70 cc/hr x 1 liter -encourage PO intake #tachycardia-mild, likely 2/2 dehydration -IVF for 1 moreliter #low uop-likely 2/2 dehydration, improved -IVF for 1 more liter #afib -eliquis, MTP #GERD -ppi #hypothyrodism-suppressed TSH possibly in the setting of non thyroid illness. Ft4 normal -continue home dose of levothyroxine now Dispo: medically stable for ARU transfer. DUNCAN VELA MD Aug 17, 2018 09:57
[2018-08-17] MEDS ORDERED: SOD CHLORIDE 0.9% 1,000 ML IV SCH (10:00)
== END 2018-08-17 11:45 | DRG 536 ==
LOC: E/R 14:58 → MS1 19:33
PROVIDERS: ADMIT Internal Medicine; ATTEND Internal Medicine
DX: S32.810A Multiple fractures of pelvis with stable disruption of pelvic ring, initial encounter for closed fracture (principal); E87.1 Hypo-osmolality and hyponatremia; W19.XXXA Unspecified fall, initial encounter; Y92.009 Unspecified place in unspecified non-institutional (private) residence as the place of occurrence of the external cause; Z79.02 Long term (current) use of antithrombotics/antiplatelets; E86.0 Dehydration; K21.9 Gastro-esophageal reflux disease without esophagitis; R00.0 Tachycardia, unspecified; E03.9 Hypothyroidism, unspecified
CPT/HCPCS: 36415; 70450; 71045; 72170; 72192; 73030; 73510; 80048; 80053; 81001; 82533; 82550; 83690; 83930; 83935; 84300; 84439; 84443; 84484; 85025; 85610; 85730; 87086; 93005; 96374; 97162; 97530; A4310; J1885; J7030

== ENCOUNTER 2018-08-17 11:55 | Inpatient (IN) | payer MEDICARE, BC ==
[~2018-08-17] VITALS: Ht 160 cm; Wt 51.0 kg
[2018-08-17] MEDS ORDERED: BISACODYL 10 MG SUPP PR PRN (12:30)
[2018-08-17] MEDS ORDERED: ACETAMINOPHEN 325 MG TAB PO PRN (12:30)
[2018-08-17] MEDS ORDERED: LACTULOSE 30ML CUP PO PRN (12:30)
[2018-08-17] MEDS ORDERED: PENDING SANTYL ORDER FOR WOUND CARE XX PRN (12:30)
[2018-08-17] MEDS ORDERED: MAGNESIUM HYDROXIDE 30ML CUP PO PRN (12:30)
[2018-08-17 13:10] VITALS: Ht 160 cm; Wt 51.0 kg
[2018-08-17 13:24] VITALS: BP 126/75; PULSE 90; RESP 18
[2018-08-17 14:00] VITALS: BP 96/51; PULSE 99; RESP 18
[2018-08-17] MEDS ORDERED: ONDANSETRON 4 MG INJ IV PRN (15:00)
[2018-08-17] MEDS: HYDROCODONE/APAP (5/325) TAB PO PRN ×2 (16:34→21:14)
[2018-08-17 20:10] VITALS: BP 108/59; PULSE 93; RESP 17
[2018-08-17] MEDS: MIRTAZAPINE 15 MG TAB PO SCH (20:20)
[2018-08-17] MEDS: SENNA TAB PO SCH (20:20)
[2018-08-17] MEDS: DOCUSATE SODIUM 100 MG CAP PO SCH (20:20)
[2018-08-17] MEDS: APIXABAN 5 MG TABLET PO SCH (20:20)
[2018-08-17] MEDS: METOPROLOL (XL) 25 MG TAB PO SCH (21:00)
[2018-08-17 21:10] VITALS: BP 107/57; PULSE 91
[2018-08-18 02:00] VITALS: BP 125/68; PULSE 90; RESP 17
[2018-08-18] MEDS: LEVOTHYROXINE 125 MCG TAB PO SCH (05:44)
[2018-08-18] MEDS: PANTOPRAZOLE (EC) 40 MG TAB PO SCH (05:44)
[2018-08-18] MEDS: HYDROCODONE/APAP (5/325) TAB PO PRN (05:44)
[2018-08-18 08:00] VITALS: BP 120/60; PULSE 101; RESP 18
[2018-08-18] MEDS: DOCUSATE SODIUM 100 MG CAP PO SCH ×2 (08:50→20:35)
[2018-08-18] MEDS: CYANOCOBALAMIN 500 MCG TAB PO SCH (08:50)
[2018-08-18] MEDS: MULTIVITAMINS THERAPEUTIC TAB PO SCH (08:50)
[2018-08-18] MEDS: CHOLECALCIFEROL 1,000 UNIT TAB PO SCH (08:50)
[2018-08-18] MEDS: METOPROLOL (XL) 25 MG TAB PO SCH ×2 (08:51→20:36)
[2018-08-18] MEDS: APIXABAN 5 MG TABLET PO SCH ×2 (08:51→20:37)
[2018-08-18] MEDS: POLYETHYLENE GLYCOL 17 GM PACKET PO SCH (09:00)
--- NOTE | 2018-08-18 13:56 | CONS ---
DATE OF ADMISSION: 08/17/2018 DATE OF CONSULTATION: 08/18/2018 REHABILITATION POST-ADMISSION PHYSICIAN EVALUATION REHABILITATION IMPAIRMENT CATEGORY: Pelvic disruption with superior and inferior pubic rami fracture, right sacral fracture, and nondisplaced S3 fracture. ACTIVE COMORBIDITIES: 1. Acute pain syndrome. 2. History of arthritis affecting multiple joints with history of bilateral total hip arthroplasty, history of right shoulder hemiarthroplasty and a history of right total knee replacement. 3. Atrial fibrillation. 3. Dehydration. 4. Gastroesophageal reflux disease. 5. Hypothyroidism. 6. Impairments in self-care and mobility. HISTORY OF PRESENT ILLNESS: The patient is a very pleasant 82-year-old female who is status post a mechanical fall with resultant pelvic disruption including right inferior and superior pubic rami fracture, right sacral ala fracture, and nondisplaced S3 fracture. The patient was followed closely by orthopedic surgery and cleared for weightbearing as tolerated. Hospital course is also notable for significant dehydration, hyponatremia, and significant pain in addition to impairments in self-care and mobility as compared to baseline. The patient has been cleared to transfer to the rehabilitation unit for comprehensive interdisciplinary rehab care. FUNCTIONAL HISTORY: Prior to recent events, she was independent in self-care tasks and mobility. Currently, patient requires moderate to maximal assist for self-care and mobility tasks. I have reviewed the preadmission screen and patient's current functional status is consistent with the preadmission screen. FAMILY AND SOCIAL HISTORY: The patient lives at home alone. She is a , but does report that she will be residing with her daughter post-discharge. PAST MEDICAL HISTORY: 1. Bilateral total hip arthroplasty. 2. History of left shoulder replacement. 3. History of right total knee replacement. 4. Atrial fibrillation. 5. Gastroesophageal reflux disease. 6. Hypothyroidism. 7. History of breast cancer with lumpectomy. 8. History of mild depression. CURRENT MEDICATIONS: 1. Eliquis 2.5 mg p.o. b.i.d. 2. Vitamin D 5000 units p.o. daily. 3. Vitamin B12 1000 mg p.o. daily. 4. Colace 100 mg p.o. b.i.d. 5. [place] p.r.n. 6. Synthroid 125 mcg p.o. q.a.m. 7. Toprol-XL 25 mg p.o. b.i.d. 8. Remeron 15 mg p.o. at bedtime. 9. Multivitamin 1 tab p.o. daily. 10. Protonix 40 mg p.o. daily. 11. MiraLax 1 packet p.o. daily. ALLERGIES: MORPHINE. PHYSICAL EXAMINATION: VITAL SIGNS: The patient is currently afebrile with stable vital signs. HEENT: The extraocular motions appear intact. Oropharynx clear. NECK: Supple. LUNGS: Clear anteriorly. CARDIAC: S1, S2. ABDOMEN: Soft, nontender, positive bowel sounds. NEUROLOGIC: She is awake and alert. She is oriented to person and hospital and date. She will follow simple 1-step commands. She demonstrates good strength in the right upper extremity. She has good distal strength in the left upper extremity, decreased forward flexion and abduction in the left shoulder. She demonstrates antigravity strength in bilateral lower extremities and dorsiflexion and plantar flexion intact in both. PLAN: The patient has been admitted for comprehensive interdisciplinary acute rehab and is anticipated to tolerate 3 hours of daily therapy in divided doses for at least 5/7 days a week. The treatment plan will include: 1. Physical therapy to focus on bed mobility, transfers, and household ambulation with the goal of having the patient reach a standby assist level. 2. Occupational therapy to focus on hygiene, grooming, dressing, bathing, and toileting activities with the goal of having the patient reach a standby assist level. 3. Rehabilitation nursing for carryover of therapeutic interventions, the goal of continent of bowel and bladder, the goal of pain adequately managed on oral medications, and patient education with regard to the aforementioned issues. ESTIMATED LENGTH OF STAY: 14 days. DISPOSITION GOAL: Home with family. REHABILITATION BARRIER: Stairs at home. Intervention for Barrier; Stair training when able I acknowledge that I performed a full physical examination on this patient within 24 hours of admission to the rehabilitation unit. I believe the patient is a good candidate for comprehensive interdisciplinary rehab care and is anticipated to make reasonable goals in a reasonable period of time as outlined above. Dictated By: TRUMAN KEITH/LADAN Conf#: [id number] DID#: [id number] CC: BILLY HATCH MD;*EndCC* MTDD
[2018-08-18] MEDS ORDERED: MULTIVITAMINS THERAPEUTIC TAB PO SCH (15:30)
[2018-08-18] MEDS: traMADol 50 MG TAB PO PRN (18:12)
--- NOTE | 2018-08-18 19:28 | PREOPHP ---
DATE OF ADMISSION: 08/17/2018 REASON FOR ADMISSION: Ground-level fall at home on 08/14/2018. HISTORY OF PRESENT ILLNESS: This 82-year-old female was in her usual state of health until the eveni ng of 08/14/2018, when after returning from a basketball game at [facility], she went home and had a fall. She was down on the ground for about 14 hours before she was found by her family. She was taken by paramedics to [facility] where she was evaluated. She had a complet e workup. She denied head trauma but did have pain in the right hip area and left shoulder. She is status post a left total shoulder replacement by Dr. Arpit Elizalde in 03/2018. She was diagnosed wi th a right medial pubis fracture in the emergency room. She has a history of bilateral hip arthropla sty with hardware in place. She was admitted to the hospital and then was seen in consultation by Dr. Feranndo Panchal, an orthopedi c surgeon who evaluated her and diagnosed a right pelvic ring fracture that is stable. He felt that she could be weightbearing as tolerated with a walker. There was no evidence of acute injury to the left shoulder hemiarthroplasty. The patient was then transferred to the acute rehabilitation unit at [facility] for a comprehensive rehabilitation program. The patient today is awake and alert. She was up with physical therapy some but her blood pressure d id drop into the 80s systolic. She was asymptomatic with this but she went back to bed. She is awak e and alert now. She has no new complaints. She is under the care of Dr. Ugo Champagne in [facility] and I have communicated with him regarding her past and current history. PAST MEDICAL HISTORY: Remarkable for traumatic fall with dislocated left hip; revision of left hip r eplacement surgery in 02/2010; traumatic fall with right mid arm fracture of the radius and ulna 08/23 010; right retinal surgery by Dr. 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 PAST SURGICAL HISTORY: Ears punctured, lanced both ears; tonsillectomy age 2-1/2; wisdom teeth as a teenager; cataract extraction; right total knee replacement; bilateral total hip replacements; lumpec nai on the right in May of 1999; right retinal surgery for a macular pucker; right forearm frac ture 08/2009. CURRENT MEDICATIONS: As follows: 1. Eliquis 5 mg twice a day. 2. Metoprolol succinate 25 mg twice a day. 3. Acetaminophen p.r.n. pain. 4. Remeron 15 mg at bedtime. 5. Nexium 40 mg a day. 6. Movantik 25 mg a day. 7. Zofran 4 mg q.6 hours p.r.n. nausea. 8. Pantoprazole 40 mg a day. 9. Ranitidine 300 mg a day. 10. Levothyroxine 125 mcg a day. 11. Cholecalciferol 5000 units a day. 12. Vitamin B12 1000 mcg a day. 13. Vitamins 1 Theragran daily. FAMILY HISTORY: Father at an elderly age. One brother who lives in [facility]. She has 3 d aughters, all of whom live in [facility]. PHYSICAL EXAMINATION: GENERAL: At this time reveals an elderly female in no apparent distress. VITAL SIGNS: Temperature 98.5, pulse of 101, respirations 18, blood pressure 120/60, O2 sat 99% on r oom air. HEENT: Head normocephalic. Eyes: Extraocular muscles intact. Nose and mouth are normal. NECK: Supple. No neck vein distention. LUNGS: Clear to auscultation. HEART: Irregularly irregular rhythm. No murmurs, gallops or rubs. ABDOMEN: Soft, nontender. No masses or megaly. EXTREMITIES: No peripheral edema. NEUROLOGIC: Grossly intact. LABORATORY TESTS DONE TODAY: White blood count 6800, hemoglobin 10.8, hematocrit 32.8. Sodium 133, potassium 4.1, chloride 99, CO2 25, BUN 14, creatinine 0.74, albumin 3.3. Urinalysis is essentially unremarkable. IMPRESSION: 1. Mechanical fall at home with fracture of right side of pelvis. She has been cleared to do weight bearing with a walker. She is now on acute rehab unit. 2. Anemia. 3. Mild dehydration, now improved with IV fluids. 4. Hyponatremia, correcting. 5. Atrial fibrillation, chronic, on Eliquis for stroke prevention. 6. Recent left total shoulder replacement which seems intact at this time and no evidence of trauma. 7. Gastroesophageal reflux disease. 8. Osteoarthritis. 9. Multiple joint replacements. PLAN: 1. The patient to start comprehensive rehabilitation program. 2. Resume and continue her routine medications. 3. Monitor her vital signs and check for orthostatic blood pressure drop. 4. I will follow the patient medically while on the acute rehab unit. Dictated By: BILLY HATCH MD, ND/LADAN Conf#: [id number] DID#: [id number]
[2018-08-18 20:10] VITALS: BP 119/65; PULSE 89; RESP 18
[2018-08-18] MEDS: SENNA TAB PO SCH (20:35)
[2018-08-18] MEDS: MIRTAZAPINE 15 MG TAB PO SCH (20:36)
[2018-08-19 02:00] VITALS: BP 164/72; PULSE 96; RESP 18
[2018-08-19] MEDS: LEVOTHYROXINE 125 MCG TAB PO SCH (05:53)
[2018-08-19] MEDS: PANTOPRAZOLE (EC) 40 MG TAB PO SCH (05:53)
[2018-08-19 06:00] VITALS: BP 152/84; PULSE 90
[2018-08-19 08:00] VITALS: BP 134/75; PULSE 90; RESP 18
[2018-08-19] MEDS: METOPROLOL (XL) 25 MG TAB PO SCH ×2 (08:43→21:00)
[2018-08-19] MEDS: CYANOCOBALAMIN 500 MCG TAB PO SCH (08:43)
[2018-08-19] MEDS: APIXABAN 5 MG TABLET PO SCH ×2 (08:43→20:24)
[2018-08-19] MEDS: DOCUSATE SODIUM 100 MG CAP PO SCH ×2 (08:43→20:23)
[2018-08-19] MEDS: CHOLECALCIFEROL 1,000 UNIT TAB PO SCH (08:44)
[2018-08-19] MEDS: traMADol 50 MG TAB PO PRN (08:44)
[2018-08-19] MEDS: POLYETHYLENE GLYCOL 17 GM PACKET PO SCH (08:44)
[2018-08-19] MEDS: MULTIVITAMINS THERAPEUTIC TAB PO SCH (08:44)
[2018-08-19] MEDS: NEOMYC/POLYMYX/BACIT 30 GM OINT TOP SCH ×2 (09:50→20:26)
--- NOTE | 2018-08-19 13:21 | PN ---
Date/Time of Note Date/Time of Note DATE: 08/19/18 TIME: 13:19 Subjective Patietn with some difficulty swallowing pills. She reports having this difficulty at home also Objective Vital Signs Date Temp Pulse Resp B/P (MAP) Pulse Ox O2 O2 Flow FiO2 Time Delivery Rate 08/19/18 98.6 90 18 134/75 98 Room Air 08:00 (94) Intake and Output 08/18/18 08/18/18 08/19/18 1515:00 23:00 07:00 IntakeIntake Total 500 ml 440 ml BalanceBalance 500 ml 440 ml Exam max transfer and ambulation 10 feet pulm-cta Results/Medications Result Diagram: 08/18/1814 08/18/1814 Medications Current Medications Docusate Sodium (Colace) 100 mg BID PO Last administered on 08/19/18 08:43; Admin Dose 100 MG; Start 08/17/18 at 21:00 Senna (Senokot) 1 tab HS PO Last administered on 08/18/18at 20:35; Admin Dose 1 TAB; Start 08/17/18 at 21:00 Magnesium Hydroxide (Milk Of Mag) 30 ml BID PRN PO CONSTIPATION; Start 08/17/18 at 12:30 Lactulose (Enulose) 20 gm DAILY PRN PO CONSTIPATION; Start 08/17/18 at 12:30 Bisacodyl (Dulcolax Supp) 10 mg DAILY PRN [place] CONSTIPATION; Start 08/17/18 at 12:30 Acetaminophen (Tylenol Tab) 650 mg Q4H PRN PO MILD PAIN LEVEL 1-3; Start 08/17/18 at 12:30 [facility]isc[facility] This patient lei... PRN PRN XX WOUND CARE; Start 08/17/18 at 12:30 Apixaban (Eliquis) 2.5 mg BID PO Last administered on 08/19/18 08:43; Admin Dose 2.5 MG; Start 08/17/18 at 21:00 Cholecalciferol (Vitamin D) 1,000 unit DAILY PO Last administered on 08/19/18 08:44; Admin Dose 1,000 UNIT; Start 08/18/18 at 09:00 Cyanocobalamin (Vitamin B12) 1,000 mcg DAILY PO Last administered on 08/19/18 08:43; Admin Dose 1,000 MCG; Start 08/18/18 at 09:00 Acetaminophen/ Hydrocodone Bitart ([place] (5/325)) 1 tab Q4H PRN PO MODERATE PAIN LEVEL 4-6 Last administered on 08/18/18 05:44; Admin Dose 1 TAB; Start 08/17/18 at 15:00 Levothyroxine Sodium (Synthroid) 125 mcg DAILY@06 PO Last administered on 08/19/18 05:53; Admin Dose 125 MCG; Start 08/18/18 at 06:00 Metoprolol Succinate (Toprol Xl) 25 mg BID PO Last administered on 08/19/18 08:43; Admin Dose 25 MG; Start 08/17/18 at 21:00 Mirtazapine (Remeron) 15 mg HS PO Last administered on 08/18/18 20:36; Admin Dose 15 MG; Start 08/17/18 at 21:00 Multivitamins Therapeutic (Theragran) 1 tab DAILY PO Last administered on 08/19/18 08:44; Admin Dose 1 TAB; Start 08/18/18 at 09:00 Ondansetron HCl (Zofran Inj) 4 mg Q6H PRN IV NAUSEA AND/OR VOMITING; Start 08/17/18 at 15:00 Pantoprazole (Protonix Tab) 40 mg DAILY@06 PO Last administered on 08/19/18 05:53; Admin Dose 40 MG; Start 08/18/18 at 06:00 Polyethylene Glycol (Miralax) 17 gm DAILY PO Last administered on 08/19/18 08:44; Admin Dose 17 GM; Start 08/18/18 at 09:00 Tramadol HCl (Ultram) 50 mg Q6H PRN PO MODERATE PAIN LEVEL 4-6 Last adminis tered on 08/19/18 08:44; Admin Dose 50 MG; Start 08/18/18 at 14:00 Neomycin/ Polymyxin/ Bacitracin (Neosporin Topical Oint) 1 applic BID TOP Last administered on 08/19/18 09:50; Admin Dose 1 APPLIC; Start 08/19/18 at 09:00 Assessment/Plan Additional Assessment/Plan Rehab- Pelvic disruption with superior and inferior pubic rami fracture, right sacral fracture, and nondisplaced S3 fracture. Tolerating rehab program, continue treatment Acute pain syndrome- continue current meds Dysphagia- will ask speech to assess History of arthritis affecting multiple joints with history of bilateral total hip arthroplasty, history of right shoulder hemiarthroplasty and a history of right total knee replacement. Atrial fibrillation. Gastroesophageal reflux disease. Hypothyroidism. TRUMAN ALAS MD Aug 19, 2018 13:21
[2018-08-19] MEDS: HYDROCODONE/APAP (5/325) TAB PO PRN ×2 (13:43→22:23)
--- NOTE | 2018-08-19 13:50 | CONS ---
Assessment/Plan Assessment/Plan Hospital Course (Demo Recall) 1. Mechanical fall at home with fracture of right side of pelvis and a nondisplaced S3 vertebrae fracture. She has been cleared to do weightbearing with a walker. She is now on acute rehab unit. She continues to have pain in the right hip and pelvic area. 2. Anemia. 3. Mild dehydration, now improved with IV fluids. 4. Hyponatremia, correcting. 5. Atrial fibrillation, chronic, on Eliquis for stroke prevention. 6. Recent left total shoulder replacement which seems intact at this time and no evidence of trauma. 7. Gastroesophageal reflux disease. 8. Osteoarthritis. 9. Multiple joint replacements. 10. Dysphasia , she has been seen by speech therapy. Consultation Date/Type/Reason Admit Date/Time Aug 17, 2018 at 11:55 Initial Consult Date Date/Time of Note DATE: 08/19/18 TIME: 13:46 24 HR Interval Summary Free Text/Dictation This patient is being seen in medical follow-up. She is having some right pelvic/hip pain. She has been able to walk some but is having a great deal of pain. She also had some difficulty swallowing this morning. She has had trouble before swallowing pills. Exam/Review of Systems Exam Vitals Vital Signs Date Temp Pulse Resp B/P (MAP) Pulse Ox O2 O2 Flow FiO2 Time Delivery Rate 08/19/18 98.6 90 18 134/75 98 Room Air 08:00 (94) Intake and Output 08/18/18 08/18/18 08/19/18 1515:00 23:00 07:00 IntakeIntake Total 500 ml 440 ml BalanceBalance 500 ml 440 ml Constitutional: alert, oriented, frail Respiratory: clear to auscultation, normal air movement Cardiovascular: irregular rhythm Gastrointestinal: soft, non-tender Musculoskeletal: nl extremities to inspection Results Result Diagram: 08/18/1814 08/18/18613 Medications Medication Current Medications Docusate Sodium (Colace) 100 mg BID PO Last administered on 08/19/18at 08:43; Admin Dose 100 MG; Start 08/17/18 at 21:00 Senna (Senokot) 1 tab HS PO Last administered on 08/18/18at 20:35; Admin Dose 1 TAB; Start 08/17/18 at 21:00 Magnesium Hydroxide (Milk Of Mag) 30 ml BID PRN PO CONSTIPATION; Start 08/17/18 at 12:30 Lactulose (Enulose) 20 gm DAILY PRN PO CONSTIPATION; Start 08/17/18 at 12:30 Bisacodyl (Dulcolax Supp) 10 mg DAILY PRN [place] CONSTIPATION; Start 08/17/18 at 12:30 Acetaminophen (Tylenol Tab) 650 mg Q4H PRN PO MILD PAIN LEVEL 1-3; Start 08/17/18 at 12:30 Miscellaneous Information (Pending Santyl Order For Wound Care) This patient lei... PRN PRN XX WOUND CARE; Start 08/17/18 at 12:30 Apixaban (Eliquis) 2.5 mg BID PO Last administered on 08/19/18 08:43; Admin Dose 2.5 MG; Start 08/17/18 at 21:00 Cholecalciferol (Vitamin D) 1,000 unit DAILY PO Last administered on 08/19/18 08:44; Admin Dose 1,000 UNIT; Start 08/18/18 at 09:00 Cyanocobalamin (Vitamin B12) 1,000 mcg DAILY PO Last administered on 08/19/18 08:43; Admin Dose 1,000 MCG; Start 08/18/18 at 09:00 Acetaminophen/ Hydrocodone Bitart ([place] (5/325)) 1 tab Q4H PRN PO MODERATE PAIN LEVEL 4-6 Last administered on 08/18/18 05:44; Admin Dose 1 TAB; Start 08/17/18 at 15:00 Levothyroxine Sodium (Synthroid) 125 mcg DAILY@06 PO Last administered on 08/19/18 05:53; Admin Dose 125 MCG; Start 08/18/18 at 06:00 Metoprolol Succinate (Toprol Xl) 25 mg BID PO Last administered on 08/19/18 08:43; Admin Dose 25 MG; Start 08/17/18 at 21:00 Mirtazapine (Remeron) 15 mg HS PO Last administered on 08/18/18 20:36; Admin Dose 15 MG; Start 08/17/18 at 21:00 Multivitamins Therapeutic (Theragran) 1 tab DAILY PO Last administered on 08/19/18 08:44; Admin Dose 1 TAB; Start 08/18/18 at 09:00 Ondansetron HCl (Zofran Inj) 4 mg Q6H PRN IV NAUSEA AND/OR VOMITING; Start 08/17/18 at 15:00 Pantoprazole (Protonix Tab) 40 mg DAILY@06 PO Last administered on 08/19/18 05:53; Admin Dose 40 MG; Start 08/18/18 at 06:00 Polyethylene Glycol (Miralax) 17 gm DAILY PO Last administered on 08/19/18 08:44; Admin Dose 17 GM; Start 08/18/18 at 09:00 Tramadol HCl (Ultram) 50 mg Q6H PRN PO MODERATE PAIN LEVEL 4-6 Last adm inistered on 08/19/18 08:44; Admin Dose 50 MG; Start 08/18/18 at 14:00 Neomycin/ Polymyxin/ Bacitracin (Neosporin Topical Oint) 1 applic BID TOP Last administered on 08/19/18 09:50; Admin Dose 1 APPLIC; Start 08/19/18 at 09:00 BILLY HATCH MD Aug 19, 2018 13:50
[2018-08-19 16:21] VITALS: BP 113/58; PULSE 79; RESP 18
[2018-08-19 20:00] VITALS: BP 106/56; PULSE 76; RESP 18
[2018-08-19] MEDS: MIRTAZAPINE 15 MG TAB PO SCH (20:23)
[2018-08-19] MEDS: SENNA TAB PO SCH (20:23)
[2018-08-20 02:00] VITALS: BP 131/73; PULSE 86; RESP 17
[2018-08-20] MEDS: LEVOTHYROXINE 125 MCG TAB PO SCH (06:26)
[2018-08-20] MEDS: PANTOPRAZOLE (EC) 40 MG TAB PO SCH (06:26)
[2018-08-20 08:00] VITALS: BP 145/73; PULSE 78; RESP 18
[2018-08-20] MEDS: NEOMYC/POLYMYX/BACIT 30 GM OINT TOP SCH ×2 (08:21→20:48)
[2018-08-20] MEDS: CYANOCOBALAMIN 500 MCG TAB PO SCH (08:21)
[2018-08-20] MEDS: POLYETHYLENE GLYCOL 17 GM PACKET PO SCH (08:21)
[2018-08-20] MEDS: MULTIVITAMINS THERAPEUTIC TAB PO SCH (08:21)
[2018-08-20] MEDS: METOPROLOL (XL) 25 MG TAB PO SCH ×2 (08:22→20:50)
[2018-08-20] MEDS: APIXABAN 5 MG TABLET PO SCH ×2 (08:22→20:48)
[2018-08-20] MEDS: traMADol 50 MG TAB PO PRN ×2 (08:23→20:55)
[2018-08-20] MEDS: CHOLECALCIFEROL 1,000 UNIT TAB PO SCH (08:23)
[2018-08-20] MEDS: DOCUSATE SODIUM 100 MG CAP PO SCH ×2 (08:23→20:48)
--- NOTE | 2018-08-20 12:05 | PN ---
Date/Time of Note Date/Time of Note DATE: 08/20/18 TIME: 12:04 Subjective Patient without new complaints Objective Vital Signs Date Temp Pulse Resp B/P (MAP) Pulse Ox O2 O2 Flow FiO2 Time Delivery Rate 08/20/18 98.0 78 18 145/73 96 Room Air 08:00 (97) Intake and Output 08/19/18 08/19/18 08/20/18 1515:00 23:00 07:00 IntakeIntake Total 870 ml BalanceBalance 870 ml Exam pulm-cta abd-soft max assist Results/Medications Result Diagram: 08/20/18 0643 08/20/18 0652 Results 24 hrs Laboratory Tests Test 08/20/18 06:43 08/20/18 06:52 White Blood Count 5.6 Red Blood Count 3.35 L Hemoglobin 10.8 L Hematocrit 31.9 L Mean Corpuscular Volume 95.2 Mean Corpuscular Hemoglobin 32.2 Mean Corpuscular Hemoglobin Concent 33.9 Red Cell Distribution Width 13.2 Platelet Count 168 # Mean Platelet Volume 11.0 H Immature Granulocytes % 0.500 H Neutrophils % 73.0 Lymphocytes % 5.0 L Monocytes % 16.7 H Eosinophils % 3.9 Basophils % 0.9 Nucleated Red Blood Cells % 0.0 Immature Granulocytes # 0.030 Neutrophils # 4.1 Lymphocytes # 0.3 L Monocytes # 0.9 Eosinophils # 0.2 Basophils # 0.1 Nucleated Red Blood Cells # 0.0 Sodium Level 135 Potassium Level 4.2 Chloride Level 101 Carbon Dioxide Level 23 Anion Gap 11 Blood Urea Nitrogen 16 Creatinine 0.74 Est Glomerular Filtrat Rate mL/min Glucose Level 107 Calcium Level 9.3 Phosphorus Level 4.5 Magnesium Level 1.8 Iron Level 46 Total Iron Binding Capacity 273 Percent Iron Saturation 17 L Ferritin 140.0 Total Bilirubin 0.6 Direct Bilirubin 0.00 Indirect Bilirubin 0.6 Aspartate Amino Transf (AST/SGOT) 26 Alanine Aminotransferase (ALT/SGPT) 24 Alkaline Phosphatase 132 H Total Protein 5.9 L Albumin 3.2 L Globulin 2.70 Albumin/Globulin Ratio 1.18 Medications Current Medications Docusate Sodium (Colace) 100 mg BID PO Last administered on 08/20/18at 08:23; Admin Dose 100 MG; Start 08/17/18 at 21:00 Senna (Senokot) 1 tab HS PO Last administered on 08/19/18 20:23; Admin Dose 1 TAB; Start 08/17/18 at 21:00 Magnesium Hydroxide (Milk Of Mag) 30 ml BID PRN PO CONSTIPATION; Start 08/17/18 at 12:30 Lactulose (Enulose) 20 gm DAILY PRN PO CONSTIPATION; Start 08/17/18 at 12:30 Bisacodyl (Dulcolax Supp) 10 mg DAILY PRN [place] CONSTIPATION; Start 08/17/18 at 1 2:30 Acetaminophen (Tylenol Tab) 650 mg Q4H PRN PO MILD PAIN LEVEL 1-3; Start 08/17/18 at 12:30 Miscellaneous Information (Pending Santyl Order For Wound Care) This patient lei... PRN PRN XX WOUND CARE; Start 08/17/18 at 12:30 Apixaban (Eliquis) 2.5 mg BID PO Last administered on 08/20/18 08:22; Admin Dose 2.5 MG; Start 08/17/18 at 21:00 Cholecalciferol (Vitamin D) 1,000 unit DAILY PO Last administered on 08/20/18 08:23; Admin Dose 1,000 UNIT; Start 08/18/18 at 09:00 Cyanocobalamin (Vitamin B12) 1,000 mcg DAILY PO Last administered on 08/20/18 08:21; Admin Dose 1,000 MCG; Start 08/18/18 at 09:00 Acetaminophen/ Hydrocodone Bitart ([place] (5/325)) 1 tab Q4H PRN PO MODERATE PAIN LEVEL 4-6 Last administered on 08/19/18 22:23; Admin Dose 1 TAB; Start 08/17/18 at 15:00 Levothyroxine Sodium (Synthroid) 125 mcg DAILY@06 PO Last administered on 08/20/18 06:26; Admin Dose 125 MCG; Start 08/18/18 at 06:00 Metoprolol Succinate (Toprol Xl) 25 mg BID PO Last administered on 08/20/18 08:22; Admin Dose 25 MG; Start 08/17/18 at 21:00 Mirtazapine (Remeron) 15 mg HS PO Last administered on 08/19/18 20:23; Admin Dose 15 MG; Start 08/17/18 at 21:00 Multivitamins Therapeutic (Theragran) 1 tab DAILY PO Last administered on 08/20/18 08:21; Admin Dose 1 TAB; Start 08/18/18 at 09:00 Ondansetron HCl (Zofran Inj) 4 mg Q6H PRN IV NAUSEA AND/OR VOMITING; Start 08/17/18 at 15:00 Pantoprazole (Protonix Tab) 40 mg DAILY@06 PO Last administered on 08/20/18 06:26; Admin Dose 40 MG; Start 08/18/18 at 06:00 Polyethylene Glycol (Miralax) 17 gm DAILY PO Last administered on 08/20/18 08:21; Admin Dose 17 GM; Start 08/18/18 at 09:00 Tramadol HCl (Ultram) 50 mg Q6H PRN PO MODERATE PAIN LEVEL 4-6 Last administered on 08/20/18 08:23; Admin Dose 50 MG; Start 08/18/18 at 14:00 Neomycin/ Polymyxin/ Bacitracin (Neosporin Topical Oint) 1 applic BID TOP Last administered on 08/20/18 08:21; Admin Dose 1 APPLIC; Start 08/19/18 at 09:00 Assessment/Plan Additional Assessment/Plan Rehab- Pelvic disruption with superior and inferior pubic rami fracture, right sacral fracture, and nondisplaced S3 fracture. Continue rehab treatment Acute pain syndrome- continue current meds Dysphagia- will ask speech to assess History of arthritis affecting multiple joints with history of bilateral total hip arthroplasty, history of right shoulder hemiarthroplasty and a history of right total knee replacement. Atrial fibrillation. Gastroesophageal reflux disease. Hypothyroidism. TRUMAN ALAS MD Aug 20, 2018 12:05
--- NOTE | 2018-08-20 13:55 | CONS ---
Assessment/Plan Assessment/Plan Hospital Course (Demo Recall) 1. Mechanical fall at home with fracture of right side of pelvis and a nondisplaced S3 vertebrae fracture. She has been cleared to do weightbearing with a walker. She is now on acute rehab unit. She continues to have pain in the right hip and pelvic area. 2. Anemia. She is on iron deficient and I will start on iron supplements. 3. Mild dehydration, now improved with IV fluids. 4. Hyponatremia, correcting. 5. Atrial fibrillation, chronic, on Eliquis for stroke prevention. 6. Recent left total shoulder replacement which seems intact at this time and no evidence of trauma. 7. Gastroesophageal reflux disease. 8. Osteoarthritis. 9. Multiple joint replacements. 10. Dysphasia , she has been seen by speech therapy. Consultation Date/Type/Reason Admit Date/Time Aug 17, 2018 at 11:55 Initial Consult Date Date/Time of Note DATE: 08/20/18 TIME: 13:53 24 HR Interval Summary Free Text/Dictation Taya is feeling better today. She has been up walking with physical therapy. She says that the right hip pelvic area is still painful. Constitutional: improved Exam/Review of Systems Exam Vitals Vital Signs Date Temp Pulse Resp B/P (MAP) Pulse Ox O2 O2 Flow FiO2 Time Delivery Rate 08/20/18 98.0 78 18 145/73 96 Room Air 08:00 (97) Intake and Output 08/19/18 08/19/18 08/20/18 1414:59 22:59 06:59 IntakeIntake Total 870 ml BalanceBalance 870 ml Constitutional: alert, oriented, frail Respiratory: clear to auscultation, normal air movement Cardiovascular: irregular rhythm Gastrointestinal: soft Musculoskeletal: nl extremities to inspection Results Result Diagram: 08/20/18 0643 08/20/18 0652 Results 24hrs Laboratory Tests Test 08/20/18 06:43 08/20/18 06:52 White Blood Count 5.6 Red Blood Count 3.35 L Hemoglobin 10.8 L Hematocrit 31.9 L Mean Corpuscular Volume 95.2 Mean Corpuscular Hemoglobin 32.2 Mean Corpuscular Hemoglobin Concent 33.9 Red Cell Distribution Width 13.2 Platelet Count 168 # Mean Platelet Volume 11.0 H Immature Granulocytes % 0.500 H Neutrophils % 73.0 Lymphocytes % 5.0 L Monocytes % 16.7 H Eosinophils % 3.9 Basophils % 0.9 Nucleated Red Blood Cells % 0.0 Immature Granulocytes # 0.030 Neutrophils # 4.1 Lymphocytes # 0.3 L Monocytes # 0.9 Eosinophils # 0.2 Basophils # 0.1 Nucleated Red Blood Cells # 0.0 Sodium Level 135 Potassium Level 4.2 Chloride Level 101 Carbon Dioxide Level 23 Anion Gap 11 Blood Urea Nitrogen 16 Creatinine 0.74 Est Glomerular Filtrat Rate mL/min Glucose Level 107 Calcium Level 9.3 Phosphorus Level 4.5 Magnesium Level 1.8 Iron Level 46 Total Iron Binding Capacity 273 Percent Iron Saturation 17 L Ferritin 140.0 Total Bilirubin 0.6 Direct Bilirubin 0.00 Indirect Bilirubin 0.6 Aspartate Amino Transf (AST/SGOT) 26 Alanine Aminotransferase (ALT/SGPT) 24 Alkaline Phosphatase 132 H Total Protein 5.9 L Albumin 3.2 L Globulin 2.70 Albumin/Globulin Ratio 1.18 Medications Medication Current Medications Docusate Sodium (Colace) 100 mg BID PO Last administered on 08/20/18 08:23; Admin Dose 100 MG; Start 08/17/18 at 21:00 Senna (Senokot) 1 tab HS PO Last administered on 08/19/18 20:23; Admin Dose 1 TAB; Start 08/17/18 at 21:00 Magnesium Hydroxide (Milk Of Mag) 30 ml BID PRN PO CONSTIPATION; Start 08/17/18 at 12:30 Lactulose (Enulose) 20 gm DAILY PRN PO CONSTIPATION; Start 08/17/18 at 12:30 Bisacodyl (Dulcolax Supp) 10 mg DAILY PRN [place] CONSTIPATION; Start 08/17/18 at 12:30 Acetaminophen (Tylenol Tab) 650 mg Q4H PRN PO MILD PAIN LEVEL 1-3; Start 08/17/18 at 12:30 Miscellaneous [facility] This patient lei... PRN PRN XX WOUND CARE; Start 08/17/18 at 12:30 Apixaban (Eliquis) 2.5 mg BID PO Last administered on 08/20/18 08:22; Admin Dose 2.5 MG; Start 08/17/18 at 21:00 Cholecalciferol (Vitamin D) 1,000 unit DAILY PO Last administered on 08/20/18 08:23; Admin Dose 1,000 UNIT; Start 08/18/18 at 09:00 Cyanocobalamin (Vitamin B12) 1,000 mcg DAILY PO Last administered on 08/20/18 08:21; Admin Dose 1,000 MCG; Start 08/18/18 at 09:00 Acetaminophen/ Hydrocodone Bitart ([place] (5/325)) 1 tab Q4H PRN PO MODERATE PAIN LEVEL 4-6 Last administered on 08/19/18 22:23; Admin Dose 1 TAB; Start 08/17/18 at 15:00 Levothyroxine Sodium (Synthroid) 125 mcg DAILY@06 PO Last administered on 08/20/18 06:26; Admin Dose 125 MCG; Start 08/18/18 at 06:00 Metoprolol Succinate (Toprol Xl) 25 mg BID PO Last administered on 08/20/18 08:22; Admin Dose 25 MG; Start 08/17/18 at 21:00 Mirtazapine (Remeron) 15 mg HS PO Last administered on 08/19/18 20:23; Admin Dose 15 MG; Start 08/17/18 at 21:00 Multivitamins Therapeutic (Theragran) 1 tab DAILY PO Last administered on 08/20/18 08:21; Admin Dose 1 TAB; Start 08/18/18 at 09:00 Ondansetron HCl (Zofran Inj) 4 mg Q6H PRN IV NAUSEA AND/OR VOMITING; Start 08/17/18 at 15:00 Pantoprazole (Protonix Tab) 40 mg DAILY@06 PO Last administered on 08/20/18 06:26; Admin Dose 40 MG; Start 08/18/18 at 06:00 Polyethylene Glycol (Miralax) 17 gm DAILY PO Last administered on 08/20/18 08:21; Admin Dose 17 GM; Start 08/18/18 at 09:00 Tramadol HCl (Ultram) 50 mg Q6H PRN PO MODERATE PAIN LEVEL 4-6 Last administered on 08/20/18 08:23; Admin Dose 50 MG; Start 08/18/18 at 14:00 Neomycin/ Polymyxin/ Bacitracin (Neosporin Topical Oint) 1 applic BID TOP Last administered on 08/20/18 08:21; Admin Dose 1 APPLIC; Start 08/19/18 at 09:00 BILLY HATCH MD Aug 20, 2018 13:55
[2018-08-20] MEDS: FERROUS SULFATE (EC) 325 MG TAB PO SCH (14:12)
[2018-08-20 20:05] VITALS: BP 136/66; PULSE 95; RESP 18
[2018-08-20] MEDS: SENNA TAB PO SCH (20:48)
[2018-08-20] MEDS: MIRTAZAPINE 15 MG TAB PO SCH (20:48)
--- NOTE | 2018-08-21 00:02 | CONS ---
DATE OF ADMISSION: 08/17/2018 DATE OF CONSULTATION: 08/20/2018 TYPE OF CONSULTATION: Psychological. REFERRING PHYSICIAN: Truman Claudio MD CONSULTING PSYCHOLOGIST: Ebonie Pitt, PhD REASON FOR CONSULTATION: This consultation was requested by Dr. James Claudio in order to evaluate the cognitive and emotional functioning of this patient related to her present medical condition. HISTORY OF PRESENT ILLNESS: The patient is an 82-year-old female. The patient had a fall and had a right inferior superior pubic rami fracture, right sacral ala fracture, and nondisplaced S3 fracture. The patient was followed closely by orthopedic surgery and cleared for weightbearing and transferred to the acute rehabilitation unit for acute multidisciplinary rehabilitation. The patient had been independent prior to this fall. The patient does have a history of depression in the past. The patient reports that she does get depressed and has been nervous. The patient is motivated to get better and does want to return to her previous level of functioning. FAMILY/SOCIAL HISTORY: The patient lives by herself in a home in [place]. The patient has 3 daughters. The patient reports that when she is discharged she is going to go live with one of her daughters in [place] until she can recover to the level of being able to be independent again. MEDICATION: The patient is currently on her Remeron 15 mg at bedtime. SUBSTANCE USE: The patient denies any use of alcohol or other drugs. The patient reports that she does not smoke. MENTAL STATUS EXAMINATION: APPEARANCE: The patient was seen in bed. She appears to be of average height and weight. The patient is right-handed. BEHAVIOR: The patient was cooperative during the consultation. The patient did attempt to answer all questions presented to him by the interviewer. MOOD AND AFFECT: The patient's mood appears to be slightly depressed. The patient did report some depression and nervousness. Affect was slightly anxious. The patient said that she is frustrated and fearful that she is not ever going to get better. PERCEPTION: The patient reports no hallucinations or delusions. The patient was alert to person, place, situation, and time. MEMORY AND COGNITION: The patient's memory and cognition are basically intact. She was able to remember recent and remote events. The patient was able to state the name of the hospital although she was not initially able to do it. She first said she could not remember it but she knew it was in [place]. Before the interview was over, she did come up with [facility] with the date, the month, and the year. The patient was able to say the vice president quality assurance, the governor of the state but she did miss the mayor of the [facility]. She said it was Arianna, who was the past mayor. The patient was able to spell "world" backwards. The patient was able to do 5 serial-7 subtractions from 100 without an error. Overall, given her age and situation, the patient's cognition appear to be relatively intact. INTELLIGENCE: Intelligence appears to fall in the average range. INSIGHT: Good. JUDGMENT: Good. THOUGHT CONTENT: The patient is concerned about her present medical condition. The patient is frustrated. The patient reports that she feels that she is fearful about never being able to get better again. The patient has a history of depression and nervousness. The patient is aware of this and is trying to work with this. The patient is using good judgment in going to live with her daughter after discharge. DISCUSSION: The patient can likely benefit from some cognitive/behavioral psychotherapy while she is on the unit. Psychotherapy would focus on her underlying level of depression and her fears about not being able to get better. The patient is encouraged in regard to her decision making about moving in with her daughter after discharge. DIAGNOSTIC IMPRESSION: F33.1, major depressive disorder, recurrent, moderate. Thank you very much, Dr. James Claudio, for referring this individual. Please do not hesitate to call if you have additional questions. Dictated By: EBONIE PITT PHD YONNY/LADAN Conf#: [id number] DID#: [id number] CC: BILLY HATCH MD; SANDIE BEAULIEU MD; EBONIE PITT PHD; TRUMAN CLAUDIO MD;*EndCC* MTDD
[2018-08-21 02:00] VITALS: BP 125/72; PULSE 86; RESP 18
[2018-08-21] MEDS: PANTOPRAZOLE (EC) 40 MG TAB PO SCH (06:05)
[2018-08-21] MEDS: LEVOTHYROXINE 125 MCG TAB PO SCH (06:06)
[2018-08-21 07:30] VITALS: BP 163/88; PULSE 91; RESP 18
[2018-08-21] MEDS: HYDROCODONE/APAP (5/325) TAB PO PRN ×4 (08:26→21:00)
[2018-08-21] MEDS: POLYETHYLENE GLYCOL 17 GM PACKET PO SCH (09:30)
[2018-08-21] MEDS: APIXABAN 5 MG TABLET PO SCH ×2 (09:31→21:00)
[2018-08-21] MEDS: DOCUSATE SODIUM 100 MG CAP PO SCH (09:31)
[2018-08-21] MEDS: CYANOCOBALAMIN 500 MCG TAB PO SCH (09:31)
[2018-08-21] MEDS: MULTIVITAMINS THERAPEUTIC TAB PO SCH (09:32)
[2018-08-21] MEDS: METOPROLOL (XL) 25 MG TAB PO SCH ×2 (09:32→21:00)
[2018-08-21] MEDS: FERROUS SULFATE (EC) 325 MG TAB PO SCH (09:32)
[2018-08-21] MEDS: CHOLECALCIFEROL 1,000 UNIT TAB PO SCH (09:36)
[2018-08-21] MEDS: NEOMYC/POLYMYX/BACIT 30 GM OINT TOP SCH ×2 (09:37→21:04)
--- NOTE | 2018-08-21 10:24 | CONS ---
Assessment/Plan Assessment/Plan Hospital Course (Demo Recall) 1. Mechanical fall at home with fracture of right side of pelvis and a nondisplaced S3 vertebrae fracture. She has been cleared to do weightbearing with a walker. She is now on acute rehab unit. She continues to have pain in the right hip and pelvic area. 2. Anemia. She is on iron deficient and I will start on iron supplements. 3. Mild dehydration, now improved with IV fluids. 4. Hyponatremia, correcting. 5. Atrial fibrillation, chronic, on Eliquis for stroke prevention. 6. Recent left total shoulder replacement which seems intact at this time and no evidence of trauma. She saw today. He is the orthopedic surgeon who replaced her left shoulder. 7. Gastroesophageal reflux disease. 8. Osteoarthritis. 9. Multiple joint replacements. 10. Dysphasia , she has been seen by speech therapy. 11. Dysuria will order a urine and a urine culture. Consultation Date/Type/Reason Admit Date/Time Aug 17, 2018 at 11:55 Initial Consult Date Date/Time of Note DATE: 08/21/18 TIME: 10:22 24 HR Interval Summary Free Text/Dictation She is complaining of some urinary symptoms, urinary frequency and pelvic pain. Exam/Review of Systems Exam Vitals Vital Signs Date Temp Pulse Resp B/P (MAP) Pulse Ox O2 O2 Flow FiO2 Time Delivery Rate 08/21/18 97.9 86 18 125/72 96 Room Air 02:00 (89) Intake and Output 08/20/18 08/20/18 08/21/18 1414:59 22:59 06:59 IntakeIntake Total 720 ml 500 ml BalanceBalance 720 ml 500 ml Constitutional: alert, oriented, frail Respiratory: clear to auscultation, normal air movement Cardiovascular: irregular rhythm Gastrointestinal: soft, non-tender Musculoskeletal: nl extremities to inspection Results Result Diagram: 08/20/18 0643 08/20/18 0652 Medications Medication Current Medications Docusate Sodium (Colace) 100 mg BID PO Last administered on 08/21/18at 09:31; Admin Dose 100 MG; Start 08/17/18 at 21:00 Senna (Senokot) 1 tab HS PO Last administered on 08/20/18at 20:48; Admin Dose 1 TAB; Start 08/17/18 at 21:00 Magnesium Hydroxide (Milk Of Mag) 30 ml BID PRN PO CONSTIPATION; Start 08/17/18 at 12:30 Lactulose (Enulose) 20 gm DAILY PRN PO CONSTIPATION; Start 08/17/18 at 12:30 Bisacodyl (Dulcolax Supp) 10 mg DAILY PRN [place] CONSTIPATION; Start 08/17/18 at 12:30 Acetaminophen (Tylenol Tab) 650 mg Q4H PRN PO MILD PAIN LEVEL 1-3; Start 08/17/18 at 12:30 Miscellaneous Information (Pending Santyl Order For Wound Care) This patient lei... PRN PRN XX WOUND CARE; Start 08/17/18 at 12:30 Apixaban (Eliquis) 2.5 mg BID PO Last administered on 08/21/18 09:31; Admin Dose 2.5 MG; Start 08/17/18 at 21:00 Cholecalciferol (Vitamin D) 1,000 unit DAILY PO Last administered on 08/21/18 09:36; Admin Dose 1,000 UNIT; Start 08/18/18 at 09:00 Cyanocobalamin (Vitamin B12) 1,000 mcg DAILY PO Last administered on 08/21/18 09:31; Admin Dose 1,000 MCG; Start 08/18/18 at 09:00 Acetaminophen/ Hydrocodone Bitart ([place] (5/325)) 1 tab Q4H PRN PO MODERATE P AIN LEVEL 4-6 Last administered on 08/21/18 08:26; Admin Dose 1 TAB; Start 08/17/18 at 15:00 Levothyroxine Sodium (Synthroid) 125 mcg DAILY@06 PO Last administered on 08/21/18 06:06; Admin Dose 125 MCG; Start 08/18/18 at 06:00 Metoprolol Succinate (Toprol Xl) 25 mg BID PO Last administered on 08/21/18 09:32; Admin Dose 25 MG; Start 08/17/18 at 21:00 Mirtazapine (Remeron) 15 mg HS PO Last administered on 08/20/18 20:48; Admin Dose 15 MG; Start 08/17/18 at 21:00 Multivitamins Therapeutic (Theragran) 1 tab DAILY PO Last administered on 08/21/18 09:32; Admin Dose 1 TAB; Start 08/18/18 at 09:00 Ondansetron HCl (Zofran Inj) 4 mg Q6H PRN IV NAUSEA AND/OR VOMITING; Start 08/17/18 at 15:00 Pantoprazole (Protonix Tab) 40 mg DAILY@06 PO Last administered on 08/21/18 06:05; Admin Dose 40 MG; Start 08/18/18 at 06:00 Polyethylene Glycol (Miralax) 17 gm DAILY PO Last administered on 08/21/18 09:30; Admin Dose 17 GM; Start 08/18/18 at 09:00 Tramadol HCl (Ultram) 50 mg Q6H PRN PO MODERATE PAIN LEVEL 4-6 Last administered on 08/20/18 20:55; Admin Dose 50 MG; Start 08/18/18 at 14:00 Neomycin/ Polymyxin/ Bacitracin (Neosporin Topical Oint) 1 applic BID TOP Last administered on 08/21/18 09:37; Admin Dose 1 APPLIC; Start 08/19/18 at 09:00 Ferrous Sulfate (Ferrous Sulfate (Ec)) 325 mg DAILY PO Last administered on 08/21/18 09:32; Admin Dose 325 MG; Start 08/20/18 at 14:00 BILLY HATCH MD Aug 21, 2018 10:24
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
[2018-08-21 14:00] VITALS: BP 91/51; PULSE 84; RESP 18
[2018-08-21 16:00] VITALS: BP 125/75
[2018-08-21 19:43] VITALS: BP 98/56; PULSE 87; RESP 20
[2018-08-21] MEDS: DOCUSATE SODIUM 10 MG/ML (10ML CUP) PO SCH (20:59)
[2018-08-21] MEDS: MIRTAZAPINE 15 MG TAB PO SCH (21:00)
[2018-08-21] MEDS: SENNA TAB PO SCH (21:00)
[2018-08-22 02:28] VITALS: BP 143/78; PULSE 97; RESP 17
[2018-08-22] MEDS: LEVOTHYROXINE 125 MCG TAB PO SCH (05:58)
[2018-08-22] MEDS: PANTOPRAZOLE (EC) 40 MG TAB PO SCH (05:58)
[2018-08-22] MEDS: HYDROCODONE/APAP (5/325) TAB PO PRN ×3 (05:59→20:33)
[2018-08-22 07:00] VITALS: BP 122/76; PULSE 98; RESP 18
[2018-08-22] MEDS: NEOMYC/POLYMYX/BACIT 30 GM OINT TOP SCH ×2 (09:44→20:33)
[2018-08-22] MEDS: POLYETHYLENE GLYCOL 17 GM PACKET PO SCH (09:44)
[2018-08-22] MEDS: DOCUSATE SODIUM 10 MG/ML (10ML CUP) PO SCH ×2 (09:44→20:32)
[2018-08-22] MEDS: CHOLECALCIFEROL 1,000 UNIT TAB PO SCH (09:45)
[2018-08-22] MEDS: CYANOCOBALAMIN 500 MCG TAB PO SCH (09:45)
[2018-08-22] MEDS: traMADol 50 MG TAB PO PRN (09:45)
[2018-08-22] MEDS: MULTIVITAMINS THERAPEUTIC TAB PO SCH (09:45)
[2018-08-22] MEDS: FERROUS SULFATE (EC) 325 MG TAB PO SCH (09:45)
[2018-08-22] MEDS: METOPROLOL (XL) 25 MG TAB PO SCH ×2 (09:46→20:37)
[2018-08-22] MEDS: APIXABAN 5 MG TABLET PO SCH ×2 (09:46→20:32)
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
[2018-08-22 14:00] VITALS: BP 108/57; PULSE 90; RESP 19
--- NOTE | 2018-08-22 15:44 | CONS ---
Assessment/Plan Assessment/Plan Hospital Course (Demo Recall) 1. Mechanical fall at home with fracture of right side of pelvis and a nondisplaced S3 vertebrae fracture. She has been cleared to do weightbearing with a walker. She is now on acute rehab unit. She continues to have pain in the right hip and pelvic area. 2. Anemia. She is has iron deficiency and I will start on iron supplements. 3. Mild dehydration, now improved with IV fluids. 4. Hyponatremia, corrected 5. Atrial fibrillation, chronic, on Eliquis for stroke prevention. 6. Recent left total shoulder replacement which seems intact at this time and no evidence of trauma. She saw yesterday. He is the orthopedic surgeon who replaced her left shoulder. 7. Gastroesophageal reflux disease. 8. Osteoarthritis. 9. Multiple joint replacements. 10. Dysphasia , she has been seen by speech therapy. 11. Dysuria will order a urine and a urine culture. Consultation Date/Type/Reason Admit Date/Time Aug 17, 2018 at 11:55 Initial Consult Date Date/Time of Note DATE: 08/22/18 TIME: 15:41 24 HR Interval Summary Free Text/Dictation Taya is awake and alert. She is feeling better today. She was able to walk and has had less pain this afternoon. Constitutional: no complaints, improved Exam/Review of Systems Exam Vitals Vital Signs Date Temp Pulse Resp B/P (MAP) Pulse Ox O2 O2 Flow FiO2 Time Delivery Rate 08/22/18 98.4 98 18 122/76 94 Room Air 07:00 (91) Intake and Output 08/21/18 08/21/18 08/22/18 1515:00 23:00 07:00 IntakeIntake Total 550 ml OutputOutput Total 150 ml BalanceBalance 400 ml Constitutional: alert, oriented, frail Respiratory: clear to auscultation, normal air movement Cardiovascular: regular rate and rhythm Gastrointestinal: soft, non-tender Musculoskeletal: nl extremities to inspection Results Result Diagram: 08/20/18 0643 08/20/18 0652 Results 24hrs Laboratory Tests Test 08/21/18 22:00 Urine Color YELLOW Urine Clarity CLEAR Urine pH 5.0 Urine Specific [place] 1.012 Urine Ketones NEGATIVE Urine Nitrite NEGATIVE Urine Bilirubin NEGATIVE Urine Urobilinogen 2+ H Urine Leukocyte Esterase TRACE A Urine Microscopic RBC 1 Urine Microscopic WBC 9 H Urine Bacteria FEW A Urine Hemoglobin NEGATIVE Urine Glucose NEGATIVE Urine Total Protein NEGATIVE Medications Medication Current Medications Senna (Senokot) 1 tab HS PO Last administered on 08/21/18 21:00; Admin Dose 1 TAB; Start 08/17/18 at 21:00 Magnesium Hydroxide (Milk Of Mag) 30 ml BID PRN PO CONSTIPATION; Start 08/17/18 at 12:30 Lactulose (Enulose) 20 gm DAILY PRN PO CONSTIPATION; Start 08/17/18 at 12:30 Bisacodyl (Dulcolax Supp) 10 mg DAILY PRN [place] CONSTIPATION; Start 08/17/18 at 12:30 Acetaminophen (Tylenol Tab) 650 mg Q4H PRN PO MILD PAIN LEVEL 1-3; Start 08/17/18 at 12:30 Miscellaneous Information (Pending [facility] Order For Wound Care) This patient lei... PRN PRN XX WOUND CARE; Start 08/17/18 at 12:30 Apixaban (Eliquis) 2.5 mg BID PO Last administered on 08/22/18 09:46; Admin Dose 2.5 MG; Start 08/17/18 at 21:00 Cholecalciferol (Vitamin D) 1,000 unit DAILY PO Last administered on 08/22/18 09:45; Admin Dose 1,000 UNIT; Start 08/18/18 at 09:00 Cyanocobalamin (Vitamin B12) 1,000 mcg DAILY PO Last administered on 08/22/18 09:45; Admin Dose 1,000 MCG; Start 08/18/18 at 09:00 Acetaminophen/ Hydrocodone Bitart ([place] (5/325)) 1 tab Q4H PRN PO MODERATE PAIN LEVEL 4-6 Last administered on 08/22/18 10:30; Admin Dose 1 TAB; Start 08/17/18 at 15:00 Levothyroxine Sodium (Synthroid) 125 mcg DAILY@06 PO Last administered on 08/22/18 05:58; Admin Dose 125 MCG; Start 08/18/18 at 06:00 Metoprolol Succinate (Toprol Xl) 25 mg BID PO Last administered on 08/22/18 09:46; Admin Dose 25 MG; Start 08/17/18 at 21:00 Mirtazapine (Remeron) 15 mg HS PO Last administered on 08/21/18 21:00; Admin Dose 15 MG; Start 08/17/18 at 21:00 Multivitamins Therapeutic (Theragran) 1 tab DAILY PO Last administered on 08/22/18 09:45; Admin Dose 1 TAB; Start 08/18/18 at 09:00 Ondansetron HCl (Zofran Inj) 4 mg Q6H PRN IV NAUSEA AND/OR VOMITING; Start 08/17/18 at 15:00 Pantoprazole (Protonix Tab) 40 mg DAILY@06 PO Last administered on 08/22/18 05:58; Admin Dose 40 MG; Start 08/18/18 at 06:00 Polyethylene Glycol (Miralax) 17 gm DAILY PO Last administered on 08/22/18 09:44; Admin Dose 17 GM; Start 08/18/18 at 09:00 Tramadol HCl (Ultram) 50 mg Q6H PRN PO BREAKTHROUGH PAIN Last administered on 08/22/18 09:45; Admin Dose 50 MG; Start 08/18/18 at 14:00 Neomycin/ Polymyxin/ Bacitracin (Neosporin Topical Oint) 1 applic BID TOP Last administered on 08/22/18 09:44; Admin Dose 1 APPLIC; Start 08/19/18 at 09:00 Ferrous Sulfate (Ferrous Sulfate (Ec)) 325 mg DAILY PO Last administered on 08/22/18 09:45; Admin Dose 325 MG; Start 08/20/18 at 14:00 Docusate Sodium (Colace Liquid Cup) 100 mg BID PO Last administered on 08/22/18 09:44; Admin Dose 100 MG; Start 08/21/18 at 21:00 Acetaminophen/ Hydrocodone Bitart ([place] (5/325)) 2 tab Q4H PRN PO SEVERE PAIN LEVEL 7-10; Start 08/22/18 at 11:00 BILLY HATCH MD Aug 22, 2018 15:44
[2018-08-22] MEDS: LIDOCAINE 5% PATCH TD SCH (18:06)
[2018-08-22 19:08] VITALS: BP 126/68; PULSE 88; RESP 18
[2018-08-22] MEDS: MIRTAZAPINE 15 MG TAB PO SCH (20:32)
[2018-08-22] MEDS: SENNA TAB PO SCH (20:33)
[2018-08-23 02:00] VITALS: BP 118/72; PULSE 92; RESP 18
[2018-08-23] MEDS: PANTOPRAZOLE (EC) 40 MG TAB PO SCH (06:12)
[2018-08-23] MEDS: HYDROCODONE/APAP (5/325) TAB PO PRN ×2 (06:12→20:35)
[2018-08-23] MEDS: LEVOTHYROXINE 125 MCG TAB PO SCH (06:12)
[2018-08-23 07:00] VITALS: BP 137/75; PULSE 98; RESP 16
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
[2018-08-23] MEDS: POLYETHYLENE GLYCOL 17 GM PACKET PO SCH (09:00)
[2018-08-23] MEDS: DOCUSATE SODIUM 10 MG/ML (10ML CUP) PO SCH ×3 (09:00→20:37)
[2018-08-23] MEDS: APIXABAN 5 MG TABLET PO SCH ×2 (09:07→20:34)
[2018-08-23] MEDS: MULTIVITAMINS THERAPEUTIC TAB PO SCH (09:07)
[2018-08-23] MEDS: CHOLECALCIFEROL 1,000 UNIT TAB PO SCH (09:07)
[2018-08-23] MEDS: traMADol 50 MG TAB PO PRN (09:07)
[2018-08-23] MEDS: CYANOCOBALAMIN 500 MCG TAB PO SCH (09:08)
[2018-08-23] MEDS: FERROUS SULFATE (EC) 325 MG TAB PO SCH (09:08)
[2018-08-23] MEDS: METOPROLOL (XL) 25 MG TAB PO SCH ×2 (09:08→20:35)
[2018-08-23] MEDS: LIDOCAINE 5% PATCH TD SCH (09:09)
[2018-08-23] MEDS: NEOMYC/POLYMYX/BACIT 30 GM OINT TOP SCH ×2 (09:09→20:36)
--- NOTE | 2018-08-23 13:26 | CONS ---
Assessment/Plan Assessment/Plan Assessment/Plan (Daily) 1. Mechanical fall at home with fracture of right side of pelvis and a nondisplaced S3 vertebrae fracture --> cont PT, pain control 2. Iron Deficiency Anemia --> cont iron supplements 3. Loose stools --> could be 2/2 miralax daily. change to PRN and check c dif. 4. UTI with dysuria - GNR on urine culture. Cont cipro and await final urine culture 5. Atrial fibrillation, chronic, on Eliquis for stroke prevention. Consultation Date/Type/Reason Admit Date/Time Aug 17, 2018 at 11:55 Initial Consult Date Date/Time of Note DATE: 08/23/18 TIME: 13:23 24 HR Interval Summary Free Text/Dictation Still having pain with ambulation, but able to do PT. Having loose stools since yesterday, miralax held this AM. Started on cipro for UTI. Exam/Review of Systems Exam Vitals Vital Signs Date Temp Pulse Resp B/P (MAP) Pulse Ox O2 O2 Flow FiO2 Time Delivery Rate 08/23/18 98.0 98 16 137/75 96 Room Air 07:00 (95) Intake and Output 08/22/18 08/22/18 08/23/18 1515:00 23:00 07:00 IntakeIntake Total 200 ml BalanceBalance 200 ml Constitutional: alert, oriented Respiratory: clear to auscultation, normal air movement Cardiovascular: regular rate and rhythm, nl pulses Gastrointestinal: soft, nl liver, spleen, non-tender, bowel sounds Results Result Diagram: 08/20/18 0643 08/20/18 0652 Medications Medication Current Medications Senna (Senokot) 1 tab HS PO Last administered on 08/22/18at 20:33; Admin Dose 1 TAB; Start 08/17/18 at 21:00 Magnesium Hydroxide (Milk Of Mag) 30 ml BID PRN PO CONSTIPATION; Start 08/17/18 at 12:30 Lactulose (Enulose) 20 gm DAILY PRN PO CONSTIPATION; Start 08/17/18 at 12:30 Bisacodyl (Dulcolax Supp) 10 mg DAILY PRN [place] CONSTIPATION; Start 08/17/18 at 12:30 Acetaminophen (Tylenol Tab) 650 mg Q4H PRN PO MILD PAIN LEVEL 1-3; Start 08/17/18 at 12:30 [facility] This patient lei... PRN PRN XX WOUND CARE; Start 08/17/18 at 12:30 Apixaban (Eliquis) 2.5 mg BID PO Last administered on 08/23/18 09:07; Admin Dose 2.5 MG; Start 08/17/18 at 21:00 Cholecalciferol (Vitamin D) 1,000 unit DAILY PO Last administered on 08/23/18 09:07; Admin Dose 1,000 UNIT; Start 08/18/18 at 09:00 Cyanocobalamin (Vitamin B12) 1,000 mcg DAILY PO Last administered on 08/23/18 09:08; Admin Dose 1,000 MCG; Start 08/18/18 at 09:00 Acetaminophen/ Hydrocodone Bitart ([place] (5/325)) 1 tab Q4H PRN PO MODERATE PAIN LEVEL 4-6 Last administered on 08/23/18 06:12; Admin Dose 1 TAB; Start 08/17/18 at 15:00 Levothyroxine Sodium (Synthroid) 125 mcg DAILY@06 PO Last administered on 08/23/18 06:12; Admin Dose 125 MCG; Start 08/18/18 at 06:00 Metoprolol Succinate (Toprol Xl) 25 mg BID PO Last administered on 08/23/18 09:08; Admin Dose 25 MG; Start 08/17/18 at 21:00 Mirtazapine (Remeron) 15 mg HS PO Last administered on 08/22/18 20:32; Admin Dose 15 MG; Start 08/17/18 at 21:00 Multivitamins Therapeutic (Theragran) 1 tab DAILY PO Last administered on 08/23/18 09:07; Admin Dose 1 TAB; Start 08/18/18 at 09:00 Ondansetron HCl (Zofran Inj) 4 mg Q6H PRN IV NAUSEA AND/OR VOMITING; Start 08/17/18 at 15:00 Pantoprazole (Protonix Tab) 40 mg DAILY@06 PO Last administered on 08/23/18 06:12; Admin Dose 40 MG; Start 08/18/18 at 06:00 Tramadol HCl (Ultram) 50 mg Q6H PRN PO BREAKTHROUGH PAIN Last administered on 3/2/19at 09:07; Admin Dose 50 MG; Start 08/18/18 at 14:00 Neomycin/ Polymyxin/ Bacitracin (Neosporin Topical Oint) 1 applic BID TOP Last administered on 08/23/18at 09:09; Admin Dose 1 APPLIC; Start 08/19/18 at 09:00 Ferrous Sulfate (Ferrous Sulfate (Ec)) 325 mg DAILY PO Last administered on 08/23/18at 09:08; Admin Dose 325 MG; Start 08/20/18 at 14:00 Docusate Sodium (Colace Liquid Cup) 100 mg BID PO Last administered on 08/22/18at 20:32; Admin Dose 100 MG; Start 08/21/18 at 21:00 Acetaminophen/ Hydrocodone Bitart ([place] (5/325)) 2 tab Q4H PRN PO SEVERE PAIN LEVEL 7-10; Start 08/22/18 at 11:00 Lidocaine (Lidoderm) 1 patch DAILY TD Last administered on 08/23/18at 09:09; Admin Dose 1 PATCH; Start 08/22/18 at 16:00 Ciprofloxacin (Cipro) 250 mg BID@06,18 PO ; Start 08/23/18 at 18:00; Stop 08/30/18 at 17:59 Polyethylene Glycol (Miralax) 17 gm DAILY PRN PO CONSTIPATION; Start 08/23/18 at 13:30 YOLANDA WATTS MD Aug 23, 2018 13:26
[2018-08-23] MEDS ORDERED: POLYETHYLENE GLYCOL 17 GM PACKET PO PRN (13:30)
[2018-08-23 14:00] VITALS: BP 124/62; PULSE 83; RESP 17
[2018-08-23] MEDS: CIPROFLOXACIN 250 MG TAB PO SCH (17:53)
[2018-08-23 19:56] VITALS: BP 107/59; PULSE 85; RESP 18
[2018-08-23] MEDS: MIRTAZAPINE 15 MG TAB PO SCH (20:35)
[2018-08-23] MEDS: SENNA TAB PO SCH (20:36)
[2018-08-24 02:00] VITALS: BP 119/72; PULSE 92; RESP 18
[2018-08-24] MEDS: PANTOPRAZOLE (EC) 40 MG TAB PO SCH (05:10)
[2018-08-24] MEDS: LEVOTHYROXINE 125 MCG TAB PO SCH (05:10)
[2018-08-24] MEDS: CIPROFLOXACIN 250 MG TAB PO SCH ×2 (05:10→17:42)
[2018-08-24] MEDS: HYDROCODONE/APAP (5/325) TAB PO PRN ×2 (05:13→20:36)
[2018-08-24 07:30] VITALS: BP 138/70; PULSE 86; RESP 18
[2018-08-24] MEDS: DOCUSATE SODIUM 10 MG/ML (10ML CUP) PO SCH ×2 (09:00→21:00)
[2018-08-24] MEDS: APIXABAN 5 MG TABLET PO SCH ×2 (09:19→20:35)
[2018-08-24] MEDS: CHOLECALCIFEROL 1,000 UNIT TAB PO SCH (09:20)
[2018-08-24] MEDS: FERROUS SULFATE (EC) 325 MG TAB PO SCH (09:20)
[2018-08-24] MEDS: CYANOCOBALAMIN 500 MCG TAB PO SCH (09:20)
[2018-08-24] MEDS: MULTIVITAMINS THERAPEUTIC TAB PO SCH (09:20)
[2018-08-24] MEDS: METOPROLOL (XL) 25 MG TAB PO SCH ×2 (09:21→20:39)
[2018-08-24] MEDS: NEOMYC/POLYMYX/BACIT 30 GM OINT TOP SCH ×2 (09:22→20:35)
[2018-08-24] MEDS: LIDOCAINE 5% PATCH TD SCH (09:32)
[2018-08-24] MEDS: traMADol 50 MG TAB PO PRN (09:46)
--- NOTE | 2018-08-24 11:48 | CONS ---
Assessment/Plan Assessment/Plan Assessment/Plan (Daily) 1. Mechanical fall at home with fracture of right side of pelvis and a nondisplaced S3 vertebrae fracture --> cont PT, pain control 2. Iron Deficiency Anemia --> cont iron supplements 3. Loose stools --> resolved after changing miralax to PRN instead of scheduled daily. Advised patient to take miralax if no BM in next 24 hours. 4. UTI with dysuria - E Coli sensitive to Cipro. Cont Cipro x 5-7 days 5. Atrial fibrillation, chronic, on Eliquis for stroke prevention. Consultation Date/Type/Reason Admit Date/Time Aug 17, 2018 at 11:55 Initial Consult Date Date/Time of Note DATE: 08/24/18 TIME: 11:47 24 HR Interval Summary Free Text/Dictation Better today, no BM in the last 24 hours. Ambulating with PT. Exam/Review of Systems Exam Vitals Vital Signs Date Temp Pulse Resp B/P (MAP) Pulse Ox O2 O2 Flow FiO2 Time Delivery Rate 08/24/18 98.0 86 18 138/70 95 Room Air 07:30 (92) Intake and Output 08/23/18 08/23/18 08/24/18 1414:59 22:59 06:59 IntakeIntake Total 550 ml 800 ml 1050 ml OutputOutput Total 600 ml BalanceBalance 550 ml 200 ml 1050 ml Respiratory: clear to auscultation, normal air movement Cardiovascular: regular rate and rhythm, nl pulses Gastrointestinal: soft, nl liver, spleen, non-tender Results Result Diagram: 08/20/18 0643 08/20/18 0652 Medications Medication Current Medications Senna (Senokot) 1 tab HS PO Last administered on 08/22/18at 20:33; Admin Dose 1 TAB; Start 08/17/18 at 21:00 Magnesium Hydroxide (Milk Of Mag) 30 ml BID PRN PO CONSTIPATION; Start 08/17/18 at 12:30 Lactulose (Enulose) 20 gm DAILY PRN PO CONSTIPATION; Start 08/17/18 at 12:30 Bisacodyl (Dulcolax Supp) 10 mg DAILY PRN [place] CONSTIPATION; Start 08/17/18 at 12:30 Acetaminophen (Tylenol Tab) 650 mg Q4H PRN PO MILD PAIN LEVEL 1-3; Start 08/17/18 at 12:30 Miscellaneous Information (Pending [facility] Order For Wound Care) This patient lei... PRN PRN XX WOUND CARE; Start 08/17/18 at 12:30 Apixaban (Eliquis) 2.5 mg BID PO Last administered on 08/24/18 09:19; Admin Dose 2.5 MG; Start 08/17/18 at 21:00 Cholecalciferol (Vitamin D) 1,000 unit DAILY PO Last administered on 08/24/18 09:20; Admin Dose 1,000 UNIT; Start 08/18/18 at 09:00 Cyanocobalamin (Vitamin B12) 1,000 mcg DAILY PO Last administered on 08/24/18 09:20; Admin Dose 1,000 MCG; Start 08/18/18 at 09:00 Acetaminophen/ Hydrocodone Bitart ([place] (5/325)) 1 tab Q4H PRN PO MODERATE PAIN LEVEL 4-6 Last administered on 08/24/18 05:13; Admin Dose 1 TAB; Start 08/17/18 at 15:00 Levothyroxine Sodium (Synthroid) 125 mcg DAILY@06 PO Last administered on 08/24/18 05:10; Admin Dose 125 MCG; Start 08/18/18 at 06:00 Metoprolol Succinate (Toprol Xl) 25 mg BID PO Last administered on 08/24/18 09:21; Admin Dose 25 MG; Start 08/17/18 at 21:00 Mirtazapine (Remeron) 15 mg HS PO Last administered on 08/23/18 20:35; Admin Dose 15 MG; Start 08/17/18 at 21:00 Multivitamins Therapeutic (Theragran) 1 tab DAILY PO Last administered on 08/24/18 09:20; Admin Dose 1 TAB; Start 08/18/18 at 09:00 Ondansetron HCl (Zofran Inj) 4 mg Q6H PRN IV NAUSEA AND/OR VOMITING; Start 08/17/18 at 15:00 Pantoprazole (Protonix Tab) 40 mg DAILY@06 PO Last administered on 08/24/18 05:10; Admin Dose 40 MG; Start 08/18/18 at 06:00 Tramadol HCl (Ultram) 50 mg Q6H PRN PO BREAKTHROUGH PAIN Last administered on 08/24/18 09:46; Admin Dose 50 MG; Start 08/18/18 at 14:00 Neomycin/ Polymyxin/ Bacitracin (Neosporin Topical Oint) 1 applic BID TOP Last administered on 08/24/18 09:22; Admin Dose 1 APPLIC; Start 08/19/18 at 09:00 Ferrous Sulfate (Ferrous Sulfate (Ec)) 325 mg DAILY PO Last administered on 08/24/18 09:20; Admin Dose 325 MG; Start 08/20/18 at 14:00 Docusate Sodium (Colace Liquid Cup) 100 mg BID PO Last administered on 08/22/18at 20:32; Admin Dose 100 MG; Start 08/21/18 at 21:00 Acetaminophen/ Hydrocodone Bitart ([place] (5/325)) 2 tab Q4H PRN PO SEVERE PAIN LEVEL 7-10; Start 08/22/18 at 11:00 Lidocaine (Lidoderm) 1 patch DAILY TD Last administered on 08/24/18at 09:32; Admin Dose 1 PATCH; Start 08/22/18 at 16:00 Ciprofloxacin (Cipro) 250 mg BID@06,18 PO Last administered on 08/24/18at 05:10; Admin Dose 250 MG; Start 08/23/18 at 18:00; Stop 08/30/18 at 17:59 Polyethylene Glycol (Miralax) 17 gm DAILY PRN PO CONSTIPATION; Start 08/23/18 at 13:30 YOLANDA WATTS MD Aug 24, 2018 11:48
[2018-08-24 14:00] VITALS: BP 99/59; PULSE 81; RESP 18
[2018-08-24 20:03] VITALS: BP 113/59; PULSE 79; RESP 18
[2018-08-24] MEDS: MIRTAZAPINE 15 MG TAB PO SCH (20:35)
[2018-08-24] MEDS: SENNA TAB PO SCH (21:00)
[2018-08-25 02:37] VITALS: BP 157/83; PULSE 86; RESP 18
[2018-08-25] MEDS: CIPROFLOXACIN 250 MG TAB PO SCH ×2 (06:22→17:49)
[2018-08-25] MEDS: PANTOPRAZOLE (EC) 40 MG TAB PO SCH (06:22)
[2018-08-25] MEDS: HYDROCODONE/APAP (5/325) TAB PO PRN ×2 (06:22→11:28)
[2018-08-25] MEDS: LEVOTHYROXINE 125 MCG TAB PO SCH (06:22)
[2018-08-25 07:00] VITALS: BP 124/76; PULSE 74; RESP 18
[2018-08-25] MEDS: NEOMYC/POLYMYX/BACIT 30 GM OINT TOP SCH ×2 (08:41→20:27)
[2018-08-25] MEDS: DOCUSATE SODIUM 10 MG/ML (10ML CUP) PO SCH ×2 (08:41→20:30)
[2018-08-25] MEDS: LIDOCAINE 5% PATCH TD SCH (08:41)
[2018-08-25] MEDS: FERROUS SULFATE (EC) 325 MG TAB PO SCH (08:42)
[2018-08-25] MEDS: MULTIVITAMINS THERAPEUTIC TAB PO SCH (08:42)
[2018-08-25] MEDS: CHOLECALCIFEROL 1,000 UNIT TAB PO SCH (08:42)
[2018-08-25] MEDS: CYANOCOBALAMIN 500 MCG TAB PO SCH (08:43)
[2018-08-25] MEDS: METOPROLOL (XL) 25 MG TAB PO SCH ×2 (08:43→20:27)
[2018-08-25] MEDS: APIXABAN 5 MG TABLET PO SCH ×3 (08:43→20:23)
--- NOTE | 2018-08-25 13:25 | PN ---
Date/Time of Note Date/Time of Note DATE: 08/25/18 TIME: 13:24 Objective Vital Signs Date Temp Pulse Resp B/P (MAP) Pulse Ox O2 O2 Flow FiO2 Time Delivery Rate 08/25/18 97.9 74 18 124/76 95 Room Air 07:00 (92) Intake and Output 08/24/18 08/24/18 08/25/18 1515:00 23:00 07:00 IntakeIntake Total 970 ml 150 ml BalanceBalance 970 ml 150 ml Exam INTERDISCIPLINARY TEAM CONFERENCE Physical Exam: Pulm-cta Abd-soft BOWEL- Cont BLADDER-Cont SKIN- intact OT- DRESSING- min/mod BATHING- min/mod TOILETING-min/mod PT- BED MOBILITY- min TRANSFERS-min AMBULATION-min 30 feet x 3 A/P- Interdisciplinary team conference held today. Please see interdisciplinary sheet. Working toward d.c. on 09/01 with post discharge follow up of physical th [facility], occupational therapy. Results/Medications Medications Current Medications Senna (Senokot) 1 tab HS PO Last administered on 08/22/18at 20:33; Admin Dose 1 TAB; Start 08/17/18 at 21:00 Magnesium Hydroxide (Milk Of Mag) 30 ml BID PRN PO CONSTIPATION; Start 08/17/18 at 12:30 Lactulose (Enulose) 20 gm DAILY PRN PO CONSTIPATION; Start 08/17/18 at 12:30 Bisacodyl (Dulcolax Supp) 10 mg DAILY PRN [place] CONSTIPATION; Start 08/17/18 at 12:30 Acetaminophen (Tylenol Tab) 650 mg Q4H PRN PO MILD PAIN LEVEL 1-3; Start 08/17/18 at 12:30 Miscellaneous Information (Pending [facility] Order For Wound Care) This patient lei... PRN PRN XX WOUND CARE; Start 08/17/18 at 12:30 Apixaban (Eliquis) 2.5 mg BID PO Last administered on 08/25/18at 11:29; Admin Dose 2.5 MG; Start 08/17/18 at 21:00 Cholecalciferol (Vitamin D) 1,000 unit DAILY PO Last administered on 08/25/18at 08:42; Admin Dose 1,000 UNIT; Start 08/18/18 at 09:00 Cyanocobalamin (Vitamin B12) 1,000 mcg DAILY PO Last administered on 08/25/18 08:43; Admin Dose 1,000 MCG; Start 08/18/18 at 09:00 Acetaminophen/ Hydrocodone Bitart ([place] (5/325)) 1 tab Q4H PRN PO MODERATE PAIN LEVEL 4-6 Last administered on 08/24/18 20:36; Admin Dose 1 TAB; Start 08/17/18 at 15:00 Levothyroxine Sodium (Synthroid) 125 mcg DAILY@06 PO Last administered on 08/25/18 06:22; Admin Dose 125 MCG; Start 08/18/18 at 06:00 Metoprolol Succinate (Toprol Xl) 25 mg BID PO Last administered on 08/25/18 08:43; Admin Dose 25 MG; Start 08/17/18 at 21:00 Mirtazapine (Remeron) 15 mg HS PO Last administered on 08/24/18 20:35; Admin Dose 15 MG; Start 08/17/18 at 21:00 Multivitamins Therapeutic (Theragran) 1 tab DAILY PO Last administered on 08/25/18 08:42; Admin Dose 1 TAB; Start 08/18/18 at 09:00 Ondansetron HCl (Zofran Inj) 4 mg Q6H PRN IV NAUSEA AND/OR VOMITING; Start 08/17/18 at 15:00 Pantoprazole (Protonix Tab) 40 mg DAILY@06 PO Last administered on 08/25/18 06:22; Admin Dose 40 MG; Start 08/18/18 at 06:00 Tramadol HCl (Ultram) 50 mg Q6H PRN PO BREAKTHROUGH PAIN Last administered on 08/24/18 09:46; Admin Dose 50 MG; Start 08/18/18 at 14:00 Neomycin/ Polymyxin/ Bacitracin (Neosporin Topical Oint) 1 applic BID TOP Last administered on 08/25/18 08:41; Admin Dose 1 APPLIC; Start 08/19/18 at 09:00 Ferrous Sulfate (Ferrous Sulfate (Ec)) 325 mg DAILY PO Last administered on 08/25/18 08:42; Admin Dose 325 MG; Start 08/20/18 at 14:00 Docusate Sodium (Colace Liquid Cup) 100 mg BID PO Last administered on 08/25/18 08:41; Admin Dose 100 MG; Start 08/21/18 at 21:00 Acetaminophen/ Hydrocodone Bitart ([place] (5/325)) 2 tab Q4H PRN PO SEVERE PAIN LEVEL 7-10 Last administered on 08/25/18 11:28; Admin Dose 2 TAB; Start 08/22/18 at 11:00 Lidocaine (Lidoderm) 1 patch DAILY TD Last administered on 08/25/18 08:41; Admin Dose 1 PATCH; Start 08/22/18 at 16:00 Ciprofloxacin (Cipro) 250 mg BID@06,18 PO Last administered on 08/25/18 06:22; Admin Dose 250 MG; Start 08/23/18 at 18:00; Stop 08/30/18 at 17:59 Polyethylene Glycol (Miralax) 17 gm DAILY PRN PO CONSTIPATION; Start 08/23/18 at 13:30 TRUMAN ALAS MD Aug 25, 2018 13:25
--- NOTE | 2018-08-25 13:31 | CONS ---
Assessment/Plan Assessment/Plan Hospital Course (Demo Recall) 1. Mechanical fall at home with fracture of right side of pelvis and a nondisplaced S3 vertebrae fracture. She has been cleared to do weightbearing with a walker. She is now on acute rehab unit. She continues to have pain in the right hip and pelvic area. 2. Anemia. She has iron deficiency and I will start on iron supplements. 3. Mild dehydration, now improved with IV fluids. 4. Hyponatremia, corrected 5. Atrial fibrillation, chronic, on Eliquis for stroke prevention. 6. Recent left total shoulder replacement which seems intact at this time and no evidence of trauma. She saw yesterday. He is the orthopedic surgeon who replaced her left shoulder. 7. Gastroesophageal reflux disease. 8. Osteoarthritis. 9. Multiple joint replacements. 10. Dysphasia , she has been seen by speech therapy. 11. Dysuria will order a urine and a urine culture. She is now on Cipro for a UTI . Consultation Date/Type/Reason Admit Date/Time Aug 17, 2018 at 11:55 Initial Consult Date Type of Consult medicine Date/Time of Note DATE: 08/25/18 TIME: 13:27 24 HR Interval Summary Free Text/Dictation She is doing better with less pelvic pain .. Constitutional: no complaints Exam/Review of Systems Exam Vitals Vital Signs Date Temp Pulse Resp B/P (MAP) Pulse Ox O2 O2 Flow FiO2 Time Delivery Rate 08/25/18 97.9 74 18 124/76 95 Room Air 07:00 (92) Intake and Output 08/24/18 08/24/18 08/25/18 1414:59 22:59 06:59 IntakeIntake Total 970 ml 150 ml BalanceBalance 970 ml 150 ml Constitutional: alert, oriented, frail Respiratory: clear to auscultation, normal air movement Cardiovascular: regular rate and rhythm Gastrointestinal: soft, non-tender Musculoskeletal: nl extremities to inspection Medications Medication Current Medications Senna (Senokot) 1 tab HS PO Last administered on 08/22/18at 20:33; Admin Dose 1 TAB; Start 08/17/18 at 21:00 Magnesium Hydroxide (Milk Of Mag) 30 ml BID PRN PO CONSTIPATION; Start 08/17/18 at 12:30 Lactulose (Enulose) 20 gm DAILY PRN PO CONSTIPATION; Start 08/17/18 at 12:30 Bisacodyl (Dulcolax Supp) 10 mg DAILY PRN [place] CONSTIPATION; Start 08/17/18 at 12:30 Acetaminophen (Tylenol Tab) 650 mg Q4H PRN PO MILD PAIN LEVEL 1-3; Start 08/17/18 at 12:30 [facility] This patient lei... PRN PRN XX WOUND CARE; Start 08/17/18 at 12:30 Apixaban (Eliquis) 2.5 mg BID PO Last administered on 08/25/18 11:29; Admin Dose 2.5 MG; Start 08/17/18 at 21:00 Cholecalciferol (Vitamin D) 1,000 unit DAILY PO Last administered on 08/25/18 08:42; Admin Dose 1,000 UNIT; Start 08/18/18 at 09:00 Cyanocobalamin (Vitamin B12) 1,000 mcg DAILY PO Last administered on 08/25/18 08:43; Admin Dose 1,000 MCG; Start 08/18/18 at 09:00 Acetaminophen/ Hydrocodone Bitart ([place] (5/325)) 1 tab Q4H PRN PO MODERATE PAIN LEVEL 4-6 Last administered on 08/24/18 20:36; Admin Dose 1 TAB; Start 08/17/18 at 15:00 Levothyroxine Sodium (Synthroid) 125 mcg DAILY@06 PO Last administered on 08/25/18 06:22; Admin Dose 125 MCG; Start 08/18/18 at 06:00 Metoprolol Succinate (Toprol Xl) 25 mg BID PO Last administered on 08/25/18 08:43; Admin Dose 25 MG; Start 08/17/18 at 21:00 Mirtazapine (Remeron) 15 mg HS PO Last administered on 08/24/18 20:35; Admin Dose 15 MG; Start 08/17/18 at 21:00 Multivitamins Therapeutic (Theragran) 1 tab DAILY PO Last administered on 08/25/18 08:42; Admin Dose 1 TAB; Start 08/18/18 at 09:00 Ondansetron HCl (Zofran Inj) 4 mg Q6H PRN IV NAUSEA AND/OR VOMITING; Start 08/17/18 at 15:00 Pantoprazole (Protonix Tab) 40 mg DAILY@06 PO Last administered on 08/25/18 06:22; Admin Dose 40 MG; Start 08/18/18 at 06:00 Tramadol HCl (Ultram) 50 mg Q6H PRN PO BREAKTHROUGH PAIN Last administered on 08/24/18 09:46; Admin Dose 50 MG; Start 08/18/18 at 14:00 Neomycin/ Polymyxin/ Bacitracin (Neosporin Topical Oint) 1 applic BID TOP Last administered on 08/25/18 08:41; Admin Dose 1 APPLIC; Start 08/19/18 at 09:00 Ferrous Sulfate (Ferrous Sulfate (Ec)) 325 mg DAILY PO Last administered on 08/25/18 08:42; Admin Dose 325 MG; Start 08/20/18 at 14:00 Docusate Sodium (Colace Liquid Cup) 100 mg BID PO Last administered on 08/25/18 08:41; Admin Dose 100 MG; Start 08/21/18 at 21:00 Acetaminophen/ Hydrocodone Bitart ([place] (5/325)) 2 tab Q4H PRN PO SEVERE PAIN LEVEL 7-10 Last administered on 08/25/18 11:28; Admin Dose 2 TAB; Start 08/22/18 at 11:00 Lidocaine (Lidoderm) 1 patch DAILY TD Last administered on 08/25/18 08:41; Admin Dose 1 PATCH; Start 08/22/18 at 16:00 Ciprofloxacin (Cipro) 250 mg BID@06,18 PO Last administered on 08/25/18 06:22; Admin Dose 250 MG; Start 08/23/18 at 18:00; Stop 08/30/18 at 17:59 Polyethylene Glycol (Miralax) 17 gm DAILY PRN PO CONSTIPATION; Start 08/23/18 at 13:30 BILLY HATCH MD Aug 25, 2018 13:31
[2018-08-25] MEDS: traMADol 50 MG TAB PO PRN (13:58)
[2018-08-25 14:00] VITALS: BP 99/61; PULSE 74; RESP 18
[2018-08-25 19:55] VITALS: BP 118/57; PULSE 72; RESP 18
[2018-08-25] MEDS: MIRTAZAPINE 15 MG TAB PO SCH (20:23)
[2018-08-25] MEDS: SENNA TAB PO SCH (20:30)
[2018-08-26 01:46] VITALS: BP 140/78; PULSE 94; RESP 18
[2018-08-26] MEDS: LEVOTHYROXINE 125 MCG TAB PO SCH (06:10)
[2018-08-26] MEDS: CIPROFLOXACIN 250 MG TAB PO SCH ×2 (06:10→17:39)
[2018-08-26] MEDS: PANTOPRAZOLE (EC) 40 MG TAB PO SCH (06:10)
[2018-08-26] MEDS: HYDROCODONE/APAP (5/325) TAB PO PRN ×4 (06:15→20:39)
[2018-08-26 07:00] VITALS: BP 148/73; PULSE 82; RESP 18
--- NOTE | 2018-08-26 08:42 | CONS ---
Assessment/Plan Assessment/Plan Hospital Course (Demo Recall) 1. Mechanical fall at home with fracture of right side of pelvis and a nondisplaced S3 vertebrae fracture. She has been cleared to do weightbearing with a walker. She is now on acute rehab unit. She continues to have pain in the right hip and pelvic area. 2. Anemia. She has iron deficiency and I will start on iron supplements. 3. Mild dehydration, now improved with IV fluids. 4. Hyponatremia, corrected 5. Atrial fibrillation, chronic, on Eliquis for stroke prevention. 6. Recent left total shoulder replacement which seems intact at this time and no evidence of trauma. She saw yesterday. He is the orthopedic surgeon who replaced her left shoulder. 7. Gastroesophageal reflux disease. 8. Osteoarthritis. 9. Multiple joint replacements. 10. Dysphasia , she has been seen by speech therapy. 11. Dysuria will order a urine and a urine culture. She is now on Cipro for a UTI . Consultation Date/Type/Reason Admit Date/Time Aug 17, 2018 at 11:55 Initial Consult Date Type of Consult medicine Date/Time of Note DATE: 08/26/18 TIME: 08:40 24 HR Interval Summary Free Text/Dictation Taya is sitting up eating breakfast. She is feeling better. She is having less pelvic pain. Constitutional: no complaints, improved Exam/Review of Systems Exam Vitals Vital Signs Date Temp Pulse Resp B/P (MAP) Pulse Ox O2 O2 Flow FiO2 Time Delivery Rate 08/26/18 98.3 82 18 148/73 97 Room Air 07:00 (98) Intake and Output 08/25/18 08/25/18 08/26/18 1515:00 23:00 07:00 IntakeIntake Total 440 ml 1400 ml 180 ml OutputOutput Total 750 ml 800 ml 450 ml BalanceBalance -310 ml 600 ml -270 ml Constitutional: alert, oriented, frail Respiratory: clear to auscultation Cardiovascular: regular rate and rhythm Gastrointestinal: soft, non-tender Musculoskeletal: nl extremities to inspection Medications Medication Current Medications Senna (Senokot) 1 tab HS PO Last administered on 08/22/18at 20:33; Admin Dose 1 TAB; Start 08/17/18 at 21:00 Magnesium Hydroxide (Milk Of Mag) 30 ml BID PRN PO CONSTIPATION; Start 08/17/18 at 12:30 Lactulose (Enulose) 20 gm DAILY PRN PO CONSTIPATION; Start 08/17/18 at 12:30 Bisacodyl (Dulcolax Supp) 10 mg DAILY PRN [place] CONSTIPATION; Start 08/17/18 at 12:30 Acetaminophen (Tylenol Tab) 650 mg Q4H PRN PO MILD PAIN LEVEL 1-3; Start 08/17/18 at 12:30 [facility] This patient lei... PRN PRN XX WOUND CARE; Start 08/17/18 at 12:30 Apixaban (Eliquis) 2.5 mg BID PO Last administered on 08/25/18 20:23; Admin Dose 2.5 MG; Start 08/17/18 at 21:00 Cholecalciferol (Vitamin D) 1,000 unit DAILY PO Last administered on 08/25/18 08:42; Admin Dose 1,000 UNIT; Start 08/18/18 at 09:00 Cyanocobalamin (Vitamin B12) 1,000 mcg DAILY PO Last administered on 08/25/18 08:43; Admin Dose 1,000 MCG; Start 08/18/18 at 09:00 Acetaminophen/ Hydrocodone Bitart ([place] (5/325)) 1 tab Q4H PRN PO MODERATE PAIN LEVEL 4-6 Last administered on 08/26/18 06:15; Admin Dose 1 TAB; Start 08/17/18 at 15:00 Levothyroxine Sodium (Synthroid) 125 mcg DAILY@06 PO Last administered on 08/26/18 06:10; Admin Dose 125 MCG; Start 08/18/18 at 06:00 Metoprolol Succinate (Toprol Xl) 25 mg BID PO Last administered on 08/25/18 20:27; Admin Dose 25 MG; Start 08/17/18 at 21:00 Mirtazapine (Remeron) 15 mg HS PO Last administered on 08/25/18 20:23; Admin Dose 15 MG; Start 08/17/18 at 21:00 Multivitamins Therapeutic (Theragran) 1 tab DAILY PO Last administered on 08/25/18 08:42; Admin Dose 1 TAB; Start 08/18/18 at 09:00 Ondansetron HCl (Zofran Inj) 4 mg Q6H PRN IV NAUSEA AND/OR VOMITING; Start 08/17/18 at 15:00 Pantoprazole (Protonix Tab) 40 mg DAILY@06 PO Last administered on 08/26/18 06:10; Admin Dose 40 MG; Start 08/18/18 at 06:00 Tramadol HCl (Ultram) 50 mg Q6H PRN PO BREAKTHROUGH PAIN Last administered on 08/25/18 13:58; Admin Dose 50 MG; Start 08/18/18 at 14:00 Neomycin/ Polymyxin/ Bacitracin (Neosporin Topical Oint) 1 applic BID TOP Last administered on 08/25/18 20:27; Admin Dose 1 APPLIC; Start 08/19/18 at 09:00 Ferrous Sulfate (Ferrous Sulfate (Ec)) 325 mg DAILY PO Last administered on 08/25/18 08:42; Admin Dose 325 MG; Start 08/20/18 at 14:00 Docusate Sodium (Colace Liquid Cup) 100 mg BID PO Last administered on 08/25/18 08:41; Admin Dose 100 MG; Start 08/21/18 at 21:00 Acetaminophen/ Hydrocodone Bitart ([place] (5/325)) 2 tab Q4H PRN PO SEVERE PAIN LEVEL 7-10 Last administered on 08/25/18 11:28; Admin Dose 2 TAB; Start 08/22/18 at 11:00 Lidocaine (Lidoderm) 1 patch DAILY TD Last administered on 08/25/18 08:41; Admin Dose 1 PATCH; Start 08/22/18 at 16:00 Ciprofloxacin (Cipro) 250 mg BID@,18 PO Last administered on 08/26/18 06:10; Admin Dose 250 MG; Start 08/23/18 at 18:00; Stop 08/30/18 at 17:59 Polyethylene Glycol (Miralax) 17 gm DAILY PRN PO CONSTIPATION; Start 08/23/18 at 13:30 BILLY HATCH MD Aug 26, 2018 08:42
[2018-08-26] MEDS: METOPROLOL (XL) 25 MG TAB PO SCH ×2 (08:43→20:40)
[2018-08-26] MEDS: MULTIVITAMINS THERAPEUTIC TAB PO SCH (08:43)
[2018-08-26] MEDS: APIXABAN 5 MG TABLET PO SCH ×2 (08:43→20:38)
[2018-08-26] MEDS: CYANOCOBALAMIN 500 MCG TAB PO SCH (08:43)
[2018-08-26] MEDS: FERROUS SULFATE (EC) 325 MG TAB PO SCH (08:43)
[2018-08-26] MEDS: DOCUSATE SODIUM 10 MG/ML (10ML CUP) PO SCH ×2 (08:43→20:38)
[2018-08-26] MEDS: NEOMYC/POLYMYX/BACIT 30 GM OINT TOP SCH ×2 (08:44→20:40)
[2018-08-26] MEDS: LIDOCAINE 5% PATCH TD SCH (08:44)
[2018-08-26] MEDS: CHOLECALCIFEROL 1,000 UNIT TAB PO SCH (10:16)
--- NOTE | 2018-08-26 11:25 | PN ---
Date/Time of Note Date/Time of Note DATE: 08/26/18 TIME: 11:24 Objective Vital Signs Date Temp Pulse Resp B/P (MAP) Pulse Ox O2 O2 Flow FiO2 Time Delivery Rate 08/26/18 98.3 82 18 148/73 97 Room Air 07:00 (98) Intake and Output 08/25/18 08/25/18 08/26/18 1515:00 23:00 07:00 IntakeIntake Total 440 ml 1400 ml 180 ml OutputOutput Total 750 ml 800 ml 450 ml BalanceBalance -310 ml 600 ml -270 ml Exam INTERDISCIPLINARY TEAM CONFERENCE Physical Exam: Pulm-cta Abd-soft BOWEL- Cont BLADDER-Cont SKIN- intact OT- DRESSING- min/mod BATHING- min/mod TOILETING-min/mod PT- BED MOBILITY- min TRANSFERS-min AMBULATION-min 85 feet A/P- Interdisciplinary team re-conference held today. Please see interdisciplinary sheet. Working toward d.c. on 09/01 with post discharge follow up of physical therapy, occupational therapy. Results/Medications Medications Current Medications Senna (Senokot) 1 tab HS PO Last administered on 08/22/18at 20:33; Admin Dose 1 TAB; Start 08/17/18 at 21:00 Magnesium Hydroxide (Milk Of Mag) 30 ml BID PRN PO CONSTIPATION; Start 08/17/18 at 12:30 Lactulose (Enulose) 20 gm DAILY PRN PO CONSTIPATION; Start 08/17/18 at 12:30 Bisacodyl (Dulcolax Supp) 10 mg DAILY PRN [place] CONSTIPATION; Start 08/17/18 at 12:30 Acetaminophen (Tylenol Tab) 650 mg Q4H PRN PO MILD PAIN LEVEL 1-3; Start 08/17/18 at 12:30 Miscellaneous Information (Pending [facility] Order For Wound Care) This patient lei... PRN PRN XX WOUND CARE; Start 08/17/18 at 12:30 Apixaban (Eliquis) 2.5 mg BID PO Last administered on 08/26/18at 08:43; Admin Dose 2.5 MG; Start 08/17/18 at 21:00 Cholecalciferol (Vitamin D) 1,000 unit DAILY PO Last administered on 08/26/18at 10:16; Admin Dose 1,000 UNIT; Start 08/18/18 at 09:00 Cyanocobalamin (Vitamin B12) 1,000 mcg DAILY PO Last administered on 08/26/18 08:43; Admin Dose 1,000 MCG; Start 08/18/18 at 09:00 Acetaminophen/ Hydrocodone Bitart ([place] (5/325)) 1 tab Q4H PRN PO MODERATE PAIN LEVEL 4-6 Last administered on 08/26/18 06:15; Admin Dose 1 TAB; Start 08/17/18 at 15:00 Levothyroxine Sodium (Synthroid) 125 mcg DAILY@06 PO Last administered on 08/26/18 06:10; Admin Dose 125 MCG; Start 08/18/18 at 06:00 Metoprolol Succinate (Toprol Xl) 25 mg BID PO Last administered on 08/26/18 08:43; Admin Dose 25 MG; Start 08/17/18 at 21:00 Mirtazapine (Remeron) 15 mg HS PO Last administered on 08/25/18 20:23; Admin Dose 15 MG; Start 08/17/18 at 21:00 Multivitamins Therapeutic (Theragran) 1 tab DAILY PO Last administered on 08/26/18 08:43; Admin Dose 1 TAB; Start 08/18/18 at 09:00 Ondansetron HCl (Zofran Inj) 4 mg Q6H PRN IV NAUSEA AND/OR VOMITING; Start 08/17/18 at 15:00 Pantoprazole (Protonix Tab) 40 mg DAILY@06 PO Last administered on 08/26/18 06:10; Admin Dose 40 MG; Start 08/18/18 at 06:00 Tramadol HCl (Ultram) 50 mg Q6H PRN PO BREAKTHROUGH PAIN Last administered on 08/25/18 13:58; Admin Dose 50 MG; Start 08/18/18 at 14:00 Neomycin/ Polymyxin/ Bacitracin (Neosporin Topical Oint) 1 applic BID TOP Last administered on 08/26/18 08:44; Admin Dose 1 APPLIC; Start 08/19/18 at 09:00 Ferrous Sulfate (Ferrous Sulfate (Ec)) 325 mg DAILY PO Last administered on 08/26/18 08:43; Admin Dose 325 MG; Start 08/20/18 at 14:00 Docusate Sodium (Colace Liquid Cup) 100 mg BID PO Last administered on 08/26/18 08:43; Admin Dose 100 MG; Start 08/21/18 at 21:00 Acetaminophen/ Hydrocodone Bitart ([place] (5/325)) 2 tab Q4H PRN PO SEVERE PAIN LEVEL 7-10 Last administered on 08/26/18 10:16; Admin Dose 2 TAB; Start 08/22/18 at 11:00 Lidocaine (Lidoderm) 1 patch DAILY TD Last administered on 08/26/18 08:44; Admin Dose 1 PATCH; Start 08/22/18 at 16:00 Ciprofloxacin (Cipro) 250 mg BID@06,18 PO Last administered on 08/26/18 06:10; Admin Dose 250 MG; Start 08/23/18 at 18:00; Stop 08/30/18 at 17:59 Polyethylene Glycol (Miralax) 17 gm DAILY PRN PO CONSTIPATION; Start 08/23/18 at 13:30 TRUMAN ALAS MD Aug 26, 2018 11:25
[2018-08-26 14:00] VITALS: BP 104/60; PULSE 84; RESP 18
[2018-08-26 20:21] VITALS: BP 109/63; PULSE 77; RESP 18
[2018-08-26] MEDS: SENNA TAB PO SCH (20:38)
[2018-08-26] MEDS: MIRTAZAPINE 15 MG TAB PO SCH (20:38)
[2018-08-27 02:36] VITALS: BP 118/64; PULSE 67; RESP 18
[2018-08-27] MEDS: PANTOPRAZOLE (EC) 40 MG TAB PO SCH (06:33)
[2018-08-27] MEDS: CIPROFLOXACIN 250 MG TAB PO SCH ×2 (06:33→17:25)
[2018-08-27] MEDS: LEVOTHYROXINE 125 MCG TAB PO SCH (06:33)
[2018-08-27] MEDS: HYDROCODONE/APAP (5/325) TAB PO PRN ×2 (06:40→21:20)
[2018-08-27 07:30] VITALS: BP 124/66; PULSE 70; RESP 20
[2018-08-27] MEDS: CHOLECALCIFEROL 1,000 UNIT TAB PO SCH (08:30)
[2018-08-27] MEDS: DOCUSATE SODIUM 10 MG/ML (10ML CUP) PO SCH ×2 (08:30→21:00)
[2018-08-27] MEDS: LIDOCAINE 5% PATCH TD SCH (08:30)
[2018-08-27] MEDS: METOPROLOL (XL) 25 MG TAB PO SCH ×2 (08:30→21:19)
[2018-08-27] MEDS: NEOMYC/POLYMYX/BACIT 30 GM OINT TOP SCH ×2 (08:30→21:26)
[2018-08-27] MEDS: CYANOCOBALAMIN 500 MCG TAB PO SCH (08:30)
[2018-08-27] MEDS: MULTIVITAMINS THERAPEUTIC TAB PO SCH (08:30)
[2018-08-27] MEDS: APIXABAN 5 MG TABLET PO SCH ×2 (08:31→21:19)
[2018-08-27] MEDS: FERROUS SULFATE (EC) 325 MG TAB PO SCH (08:32)
--- NOTE | 2018-08-27 08:42 | CONS ---
Assessment/Plan Assessment/Plan Hospital Course (Demo Recall) 1. Mechanical fall at home with fracture of right side of pelvis and a nondisplaced S3 vertebrae fracture. She has been cleared to do weightbearing with a walker. She is now on acute rehab unit. She continues to have pain in the right hip and pelvic area. 2. Anemia. She has iron deficiency and I will start on iron supplements. Will check CBC tomorrow. 3. Mild dehydration, now improved with IV fluids. 4. Hyponatremia, corrected 5. Atrial fibrillation, chronic, on Eliquis for stroke prevention. 6. Recent left total shoulder replacement which seems intact at this time and no evidence of trauma. She saw yesterday. He is the orthopedic surgeon who replaced her left shoulder. 7. Gastroesophageal reflux disease. 8. Osteoarthritis. 9. Multiple joint replacements. 10. Dysphasia , she has been seen by speech therapy. 11. Dysuria will order a urine and a urine culture. She is now on Cipro for a UTI . Consultation Date/Type/Reason Admit Date/Time Aug 17, 2018 at 11:55 Initial Consult Date Type of Consult medicine Date/Time of Note DATE: 08/27/18 TIME: 08:41 24 HR Interval Summary Free Text/Dictation Taya is awake and alert this morning. She is feeling better with less pelvic pain on walking. Constitutional: no complaints, improved Exam/Review of Systems Exam Vitals Vital Signs Date Temp Pulse Resp B/P (MAP) Pulse Ox O2 O2 Flow FiO2 Time Delivery Rate 08/27/18 97.8 70 20 124/66 95 Room Air 07:30 (85) Intake and Output 08/26/18 08/26/18 08/27/18 1515:00 23:00 07:00 IntakeIntake Total 1350 ml 100 ml OutputOutput Total 600 ml 250 ml BalanceBalance 750 ml -150 ml Constitutional: alert, oriented, frail Respiratory: clear to auscultation, normal air movement Cardiovascular: irregular rhythm Gastrointestinal: soft, non-tender Musculoskeletal: nl extremities to inspection Medications Medication Current Medications Senna (Senokot) 1 tab HS PO Last administered on 08/26/18at 20:38; Admin Dose 1 TAB; Start 08/17/18 at 21:00 Magnesium Hydroxide (Milk Of Mag) 30 ml BID PRN PO CONSTIPATION; Start 08/17/18 at 12:30 Lactulose (Enulose) 20 gm DAILY PRN PO CONSTIPATION; Start 08/17/18 at 12:30 Bisacodyl (Dulcolax Supp) [address] [place] CONSTIPATION; Start 08/17/18 at 12:30 Acetaminophen (Tylenol Tab) 650 mg Q4H PRN PO MILD PAIN LEVEL 1-3; Start 08/17/18 at 12:30 Miscellaneous Information (Pending Santyl Order For Wound Care) This patient lei... PRN PRN XX WOUND CARE; Start 08/17/18 at 12:30 Apixaban (Eliquis) 2.5 mg BID PO Last administered on 08/26/18 20:38; Admin Dose 2.5 MG; Start 08/17/18 at 21:00 Cholecalciferol (Vitamin D) 1,000 unit DAILY PO Last administered on 08/26/18 10:16; Admin Dose 1,000 UNIT; Start 08/18/18 at 09:00 Cyanocobalamin (Vitamin B12) 1,000 mcg DAILY PO Last administered on 08/26/18 08:43; Admin Dose 1,000 MCG; Start 08/18/18 at 09:00 Acetaminophen/ Hydrocodone Bitart ([place] (5/325)) 1 tab Q4H PRN PO MODERATE PAIN LEVEL 4-6 Last administered on 08/26/18 06:15; Admin Dose 1 TAB; Start 08/17/18 at 15:00 Levothyroxine Sodium (Synthroid) 125 mcg DAILY@06 PO Last administered on 08/27/18 06:33; Admin Dose 125 MCG; Start 08/18/18 at 06:00 Metoprolol Succinate (Toprol Xl) 25 mg BID PO Last administered on 08/26/18 20:40; Admin Dose 25 MG; Start 08/17/18 at 21:00 Mirtazapine (Remeron) 15 mg HS PO Last administered on 08/26/18 20:38; Admin Dose 15 MG; Start 08/17/18 at 21:00 Multivitamins Therapeutic (Theragran) 1 tab DAILY PO Last administered on 08:43; Admin Dose 1 TAB; Start 08/18/18 at 09:00 Ondansetron HCl (Zofran Inj) 4 mg Q6H PRN IV NAUSEA AND/OR VOMITING; Start 08/17/18 at 15:00 Pantoprazole (Protonix Tab) 40 mg DAILY@06 PO Last administered on 08/27/18 06:33; Admin Dose 40 MG; Start 08/18/18 at 06:00 Tramadol HCl (Ultram) 50 mg Q6H PRN PO BREAKTHROUGH PAIN Last administered on 08/25/18 13:58; Admin Dose 50 MG; Start 08/18/18 at 14:00 Neomycin/ Polymyxin/ Bacitracin (Neosporin Topical Oint) 1 applic BID TOP Last administered on 08/26/18 20:40; Admin Dose 1 APPLIC; Start 08/19/18 at 09:00 Ferrous Sulfate (Ferrous Sulfate (Ec)) 325 mg DAILY PO Last administered on 08/26/18 08:43; Admin Dose 325 MG; Start 08/20/18 at 14:00 Docusate Sodium (Colace Liquid Cup) 100 mg BID PO Last administered on 08/26/18 20:38; Admin Dose 100 MG; Start 08/21/18 at 21:00 Acetaminophen/ Hydrocodone Bitart ([place] (5/325)) 2 tab Q4H PRN PO SEVERE PAIN LEVEL 7-10 Last administered on 08/27/18 06:40; Admin Dose 2 TAB; Start 08/22/18 at 11:00 Lidocaine (Lidoderm) 1 patch DAILY TD Last administered on 08/27/18 08:30; Admin Dose 1 PATCH; Start 08/22/18 at 16:00 Ciprofloxacin (Cipro) 250 mg BID@06,18 PO Last administered on 08/27/18 06:33; Admin Dose 250 MG; Start 08/23/18 at 18:00; Stop 08/30/18 at 17:59 Polyethylene Glycol (Miralax) 17 gm DAILY PRN PO CONSTIPATION; Start 08/23/18 at 13:30 BILLY HATCH MD Aug 27, 2018 08:42
--- NOTE | 2018-08-27 13:45 | PN ---
Date/Time of Note Date/Time of Note DATE: 08/27/18 TIME: 13:45 Subjective Motivated Objective Vital Signs Date Temp Pulse Resp B/P (MAP) Pulse Ox O2 O2 Flow FiO2 Time Delivery Rate 08/27/18 97.8 70 20 124/66 95 Room Air 07:30 (85) Intake and Output 08/26/18 08/26/18 08/27/18 1515:00 23:00 07:00 IntakeIntake Total 1350 ml 100 ml OutputOutput Total 600 ml 250 ml BalanceBalance 750 ml -150 ml Exam pulm-cta abd-soft cga ambulation Results/Medications Medications Current Medications Senna (Senokot) 1 tab HS PO Last administered on 08/26/18at 20:38; Admin Dose 1 TAB; Start 08/17/18 at 21:00 Magnesium Hydroxide (Milk Of Mag) 30 ml BID PRN PO CONSTIPATION; Start 08/17/18 at 12:30 Lactulose (Enulose) 20 gm DAILY PRN PO CONSTIPATION; Start 08/17/18 at 12:30 Bisacodyl (Dulcolax Supp) 10 mg DAILY PRN [place] CONSTIPATION; Start 08/17/18 at 12:30 Acetaminophen (Tylenol Tab) 650 mg Q4H PRN PO MILD PAIN LEVEL 1-3; Start 08/17/18 at 12:30 Miscellaneous Information (Pending [facility] Order For Wound Care) This patient lei... PRN PRN XX WOUND CARE; Start 08/17/18 at 12:30 Apixaban (Eliquis) 2.5 mg BID PO Last administered on 08/27/18at 08:31; Admin Dose 2.5 MG; Start 08/17/18 at 21:00 Cholecalciferol (Vitamin D) 1,000 unit DAILY PO Last administered on 08/27/18 08:30; Admin Dose 1,000 UNIT; Start 08/18/18 at 09:00 Cyanocobalamin (Vitamin B12) 1,000 mcg DAILY PO Last administered on 08/27/18 08:30; Admin Dose 1,000 MCG; Start 08/18/18 at 09:00 Acetaminophen/ Hydrocodone Bitart ([place] (5/325)) 1 tab Q4H PRN PO MODERATE PAIN LEVEL 4-6 Last administered on 08/26/18at 06:15; Admin Dose 1 TAB; Start 08/17/18 at 15:00 Levothyroxine Sodium (Synthroid) 125 mcg DAILY@06 PO Last administered on 08/27/18 06:33; Admin Dose 125 MCG; Start 08/18/18 at 06:00 Metoprolol Succinate (Toprol Xl) 25 mg BID PO Last administered on 08/27/18 08:30; Admin Dose 25 MG; Start 08/17/18 at 21:00 Mirtazapine (Remeron) 15 mg HS PO Last administered on 08/26/18 20:38; Admin Dose 15 MG; Start 08/17/18 at 21:00 Multivitamins Therapeutic (Theragran) 1 tab DAILY PO Last administered on 08/27/18 08:30; Admin Dose 1 TAB; Start 08/18/18 at 09:00 Ondansetron HCl (Zofran Inj) 4 mg Q6H PRN IV NAUSEA AND/OR VOMITING; Start 08/17/18 at 15:00 Pantoprazole (Protonix Tab) 40 mg DAILY@06 PO Last administered on 08/27/18 06:33; Admin Dose 40 MG; Start 08/18/18 at 06:00 Tramadol HCl (Ultram) 50 mg Q6H PRN PO BREAKTHROUGH PAIN Last administered on 08/25/18 13:58; Admin Dose 50 MG; Start 08/18/18 at 14:00 Neomycin/ Polymyxin/ Bacitracin (Neosporin Topical Oint) 1 applic BID TOP Last administered on 08/27/18 08:30; Admin Dose 1 APPLIC; Start 08/19/18 at 09:00 Ferrous Sulfate (Ferrous Sulfate (Ec)) 325 mg DAILY PO Last administered on 08/27/18 08:32; Admin Dose 325 MG; Start 08/20/18 at 14:00 Docusate Sodium (Colace Liquid Cup) 100 mg BID PO Last administered on 08/27/18 08:30; Admin Dose 100 MG; Start 08/21/18 at 21:00 Acetaminophen/ Hydrocodone Bitart ([place] (5/325)) 2 tab Q4H PRN PO SEVERE PAIN LEVEL 7-10 Last administered on 08/27/18 06:40; Admin Dose 2 TAB; Start 08/22/18 at 11:00 Lidocaine (Lidoderm) 1 patch DAILY TD Last administered on 3/6/19at 08:30; Admin Dose 1 PATCH; Start 08/22/18 at 16:00 Ciprofloxacin (Cipro) 250 mg BID@06,18 PO Last administered on 08/27/18at 06:33; Admin Dose 250 MG; Start 08/23/18 at 18:00; Stop 08/30/18 at 17:59 Polyethylene Glycol (Miralax) 17 gm DAILY PRN PO CONSTIPATION; Start 08/23/18 at 13:30 Assessment/Plan Additional Assessment/Plan Rehab- Pelvic disruption with superior and inferior pubic rami fracture, right sacral fracture, and nondisplaced S3 fracture. Great progress, continue rehab program Acute pain syndrome- continue current meds GI- continue bowel program - await C & S History of arthritis affecting multiple joints with history of bilateral total hip arthroplasty, history of right shoulder hemiarthroplasty and a history of right total knee replacement. Atrial fibrillation. Gastroesophageal reflux disease. Hypothyroidism. TRUMAN ALAS MD Aug 27, 2018 13:45
[2018-08-27 14:00] VITALS: BP 103/58; PULSE 74; RESP 18
--- NOTE | 2018-08-27 19:13 | PN ---
DATE: 08/27/2018 PSYCHOLOGY -- INDIVIDUAL SESSION - [id number] This is a followup on a patient who was seen last week. The patient was seen in bed. The patient reports that she is having some hard time walking with the pain. The patient is motivated to get better. The patient was going to go to live with her daughter in [place], but it is not sure that this is going to happen because she may need more care than her daughter could actually provide. There is question as to what is going to happen upon discharge. The patient did say at one point in time when she was hospitalized before she went to the [facility] for a while until she was able to recover enough to be home. The patient was motivated to get better and did talk about her feelings about all the things that were going on. This seemed to help her mood. Dictated By: EBONIE OCHOA PHD RK/LADAN Conf#: [id number] DID#: [id number] CC: BILLY HATCH MD;*EndCC* MTDD
[2018-08-27 19:32] VITALS: BP 117/65; PULSE 77; RESP 18
[2018-08-27] MEDS: SENNA TAB PO SCH (21:00)
[2018-08-27] MEDS: MIRTAZAPINE 15 MG TAB PO SCH (21:19)
[2018-08-28 02:00] VITALS: BP 122/70; PULSE 72; RESP 18
[2018-08-28] MEDS: CIPROFLOXACIN 250 MG TAB PO SCH ×2 (06:37→17:36)
[2018-08-28] MEDS: PANTOPRAZOLE (EC) 40 MG TAB PO SCH (06:37)
[2018-08-28] MEDS: LEVOTHYROXINE 125 MCG TAB PO SCH (06:37)
[2018-08-28 07:30] VITALS: BP 140/81; PULSE 80; RESP 20
[2018-08-28] MEDS: DOCUSATE SODIUM 10 MG/ML (10ML CUP) PO SCH (09:13)
[2018-08-28] MEDS: CHOLECALCIFEROL 1,000 UNIT TAB PO SCH (09:13)
[2018-08-28] MEDS: LIDOCAINE 5% PATCH TD SCH (09:13)
[2018-08-28] MEDS: CYANOCOBALAMIN 500 MCG TAB PO SCH (09:13)
[2018-08-28] MEDS: METOPROLOL (XL) 25 MG TAB PO SCH ×2 (09:14→21:19)
[2018-08-28] MEDS: APIXABAN 5 MG TABLET PO SCH ×2 (09:14→21:18)
[2018-08-28] MEDS: HYDROCODONE/APAP (5/325) TAB PO PRN ×2 (09:14→21:17)
[2018-08-28] MEDS: MULTIVITAMINS THERAPEUTIC TAB PO SCH (09:14)
[2018-08-28] MEDS: NEOMYC/POLYMYX/BACIT 30 GM OINT TOP SCH ×2 (09:15→21:19)
[2018-08-28] MEDS: FERROUS SULFATE (EC) 325 MG TAB PO SCH (09:15)
[2018-08-28] MEDS ORDERED: DOCUSATE SODIUM 100 MG CAP PO PRN (10:00)
[2018-08-28] MEDS: DOCUSATE SODIUM 100 MG CAP PO SCH ×2 (10:16→21:17)
--- NOTE | 2018-08-28 11:23 | PN ---
Date/Time of Note Date/Time of Note DATE: 08/28/18 TIME: 11:22 Subjective Patient motivated for activities, overall pain improving Objective Vital Signs Date Temp Pulse Resp B/P (MAP) Pulse Ox O2 O2 Flow FiO2 Time Delivery Rate 08/28/18 98.0 80 20 140/81 95 Room Air 07:30 (100) Intake and Output 08/27/18 08/27/18 08/28/18 1515:00 23:00 07:00 IntakeIntake Total 1690 ml 552 ml BalanceBalance 1690 ml 552 ml Exam pulm-cta sba trasnfer sba ambulation Results/Medications Result Diagram: 08/28/18 0618 08/28/18 0618 Results 24 hrs Laboratory Tests Test 08/28/18 06:18 White Blood Count 5.9 Red Blood Count 3.66 L Hemoglobin 11.7 L Hematocrit 36.0 L Mean Corpuscular Volume 98.4 Mean Corpuscular Hemoglobin 32.0 Mean Corpuscular Hemoglobin Concent 32.5 Red Cell Distribution Width 12.7 Platelet Count 312 # Mean Platelet Volume 10.3 Immature Granulocytes % 0.500 H Neutrophils % 75.2 Lymphocytes % 5.6 L Monocytes % 13.1 H Eosinophils % 4.6 Basophils % 1.0 Nucleated Red Blood Cells % 0.0 Immature Granulocytes # 0.030 Neutrophils # 4.4 Lymphocytes # 0.3 L Monocytes # 0.8 Eosinophils # 0.3 Basophils # 0.1 Nucleated Red Blood Cells # 0.0 Sodium Level 136 Potassium Level 4.5 Chloride Level 101 Carbon Dioxide Level 26 Anion Gap 9 Blood Urea Nitrogen 23 H Creatinine 0.86 Est Glomerular Filtrat Rate mL/min Glucose Level 77 Calcium Level 9.7 Total Bilirubin 0.3 Direct Bilirubin 0.00 Indirect Bilirubin 0.3 Aspartate Amino Transf (AST/SGOT) 29 Alanine Aminotransferase (ALT/SGPT) 12 L Alkaline Phosphatase 210 H Total Protein 6.4 Albumin 3.7 Globulin 2.70 Albumin/Globulin Ratio 1.37 Medications Current Medications Senna (Senokot) 1 tab HS PO Last administered on 08/26/18at 20:38; Admin Dose 1 TAB; Start 08/17/18 at 21:00 Magnesium Hydroxide (Milk Of Mag) 30 ml BID PRN PO CONSTIPATION; Start 08/17/18 at 12:30 Lactulose (Enulose) 20 gm DAILY PRN PO CONSTIPATION; Start 08/17/18 at 12:30 Bisacodyl (Dulcolax Supp) 10 mg DAILY PRN [place] CONSTIPATION; Start 08/17/18 at 12:30 Acetaminophen (Tylenol Tab) 650 mg Q4H PRN PO MILD PAIN LEVEL 1-3; Start 08/17/18 at 12:30 Miscellaneous Information (Pending Santyl Order For Wound Care) This patient lei... PRN PRN XX WOUND CARE; Start 08/17/18 at 12:30 Apixaban (Eliquis) 2.5 mg BID PO Last administered on 08/28/18 09:14; Admin D ose 2.5 MG; Start 08/17/18 at 21:00 Cholecalciferol (Vitamin D) 1,000 unit DAILY PO Last administered on 08/28/18 09:13; Admin Dose 1,000 UNIT; Start 08/18/18 at 09:00 Cyanocobalamin (Vitamin B12) 1,000 mcg DAILY PO Last administered on 08/28/18 09:13; Admin Dose 1,000 MCG; Start 08/18/18 at 09:00 Acetaminophen/ Hydrocodone Bitart ([place] (5/325)) 1 tab Q4H PRN PO MODERATE PAIN LEVEL 4-6 Last administered on 08/26/18 06:15; Admin Dose 1 TAB; Start 08/17/18 at 15:00 Levothyroxine Sodium (Synthroid) 125 mcg DAILY@06 PO Last administered on 08/28/18 06:37; Admin Dose 125 MCG; Start 08/18/18 at 06:00 Metoprolol Succinate (Toprol Xl) 25 mg BID PO Last administered on 08/28/18 09:14; Admin Dose 25 MG; Start 08/17/18 at 21:00 Mirtazapine (Remeron) 15 mg HS PO Last administered on 08/27/18 21:19; Admin Dose 15 MG; Start 08/17/18 at 21:00 Multivitamins Therapeutic (Theragran) 1 tab DAILY PO Last administered on 08/28/18 09:14; Admin Dose 1 TAB; Start 08/18/18 at 09:00 Ondansetron HCl (Zofran Inj) 4 mg Q6H PRN IV NAUSEA AND/OR VOMITING; Start 08/17/18 at 15:00 Pantoprazole (Protonix Tab) 40 mg DAILY@06 PO Last administered on 08/28/18 06:37; Admin Dose 40 MG; Start 08/18/18 at 06:00 Tramadol HCl (Ultram) 50 mg Q6H PRN PO BREAKTHROUGH PAIN Last administered on 08/25/18 13:58; Admin Dose 50 MG; Start 08/18/18 at 14:00 Neomycin/ Polymyxin/ Bacitracin (Neosporin Topical Oint) 1 applic BID TOP Last administered on 08/28/18 09:15; Admin Dose 1 APPLIC; Start 08/19/18 at 09:00 Ferrous Sulfate (Ferrous Sulfate (Ec)) 325 mg DAILY PO Last administered on 08/28/18 09:15; Admin Dose 325 MG; Start 08/20/18 at 14:00 Acetaminophen/ Hydrocodone Bitart ([place] (5/325)) 2 tab Q4H PRN PO SEVERE PAIN LEVEL 7-10 Last administered on 08/28/18 09:14; Admin Dose 2 TAB; Start 08/22/18 at 11:00 Lidocaine (Lidoderm) 1 patch DAILY TD Last administered on 08/28/18 09:13; Admin Dose 1 PATCH; Start 08/22/18 at 16:00 Ciprofloxacin (Cipro) 250 mg BID@06,18 PO Last administered on 08/28/18 06:37; Admin Dose 250 MG; Start 08/23/18 at 18:00; Stop 08/30/18 at 17:59 Polyethylene Glycol (Miralax) 17 gm DAILY PRN PO CONSTIPATION; Start 08/23/18 at 13:30 Docusate Sodium (Colace) 100 mg BID PO Last administered on 08/28/18 10:16; Admin Dose 100 MG; Start 08/28/18 at 10:00 Assessment/Plan Additional Assessment/Plan Rehab- Pelvic disruption with superior and inferior pubic rami fracture, right sacral fracture, and nondisplaced S3 fracture. Progressing with treatment plan. Working towrds home next week, DC extended with goal of reaching independence Acute pain syndrome- continue current meds GI- continue bowel program - await C & S History of arthritis affecting multiple joints with history of bilateral total hip arthroplasty, history of right shoulder hemiarthroplasty and a history of right total knee replacement. Atrial fibrillation. Gastroesophageal reflux disease. Hypothyroidism. GRITTON,LIVA L. MD Aug 28, 2018 11:23
--- NOTE | 2018-08-28 13:35 | CONS ---
Assessment/Plan Assessment/Plan Hospital Course (Demo Recall) 1. Mechanical fall at home with fracture of right side of pelvis and a nondisplaced S3 vertebrae fracture. She has been cleared to do weightbearing with a walker. She is now on acute rehab unit. She continues to have pain in the right hip and pelvic area. 2. Anemia. She has iron deficiency and I will start on iron supplements. Will check CBC tomorrow. 3. Mild dehydration, now improved with IV fluids. 4. Hyponatremia, corrected 5. Atrial fibrillation, chronic, on Eliquis for stroke prevention. 6. Recent left total shoulder replacement which seems intact at this time and no evidence of trauma. She saw yesterday. He is the orthopedic surgeon who replaced her left shoulder. 7. Gastroesophageal reflux disease. 8. Osteoarthritis. 9. Multiple joint replacements. 10. Dysphasia , she has been seen by speech therapy. 11. Dysuria will order a urine and a urine culture. She is now on Cipro for a UTI . Consultation Date/Type/Reason Admit Date/Time Aug 17, 2018 at 11:55 Initial Consult Date Type of Consult medicine Date/Time of Note DATE: 08/28/18 TIME: 13:31 24 HR Interval Summary Free Text/Dictation Taya is being seen in medical follow-up. She is awake and alert. She says that her pain is decreasing and she is able to walk more and with less pain. Constitutional: no complaints Exam/Review of Systems Exam Vitals Vital Signs Date Temp Pulse Resp B/P (MAP) Pulse Ox O2 O2 Flow FiO2 Time Delivery Rate 08/28/18 98.0 80 20 140/81 95 Room Air 07:30 (100) Intake and Output 08/27/18 08/27/18 08/28/18 1515:00 23:00 07:00 IntakeIntake Total 1690 ml 552 ml BalanceBalance 1690 ml 552 ml Constitutional: alert, oriented, frail Respiratory: clear to auscultation Cardiovascular: irregular rhythm Gastrointestinal: soft, non-tender Musculoskeletal: nl extremities to inspection Results Result Diagram: 08/28/1818 08/28/18 0618 Results 24hrs Laboratory Tests Test 08/28/18 06:18 White Blood Count 5.9 Red Blood Count 3.66 L Hemoglobin 11.7 L Hematocrit 36.0 L Mean Corpuscular Volume 98.4 Mean Corpuscular Hemoglobin 32.0 Mean Corpuscular Hemoglobin Concent 32.5 Red Cell Distribution Width 12.7 Platelet Count 312 # Mean Platelet Volume 10.3 Immature Granulocytes % 0.500 H Neutrophils % 75.2 Lymphocytes % 5.6 L Monocytes % 13.1 H Eosinophils % 4.6 Basophils % 1.0 Nucleated Red Blood Cells % 0.0 Immature Granulocytes # 0.030 Neutrophils # 4.4 Lymphocytes # 0.3 L Monocytes # 0.8 Eosinophils # 0.3 Basophils # 0.1 Nucleated Red Blood Cells # 0.0 Sodium Level 136 Potassium Level 4.5 Chloride Level 101 Carbon Dioxide Level 26 Anion Gap 9 Blood Urea Nitrogen 23 H Creatinine 0.86 Est Glomerular Filtrat Rate mL/min Glucose Level 77 Calcium Level 9.7 Total Bilirubin 0.3 Direct Bilirubin 0.00 Indirect Bilirubin 0.3 Aspartate Amino Transf (AST/SGOT) 29 Alanine Aminotransferase (ALT/SGPT) 12 L Alkaline Phosphatase 210 H Total Protein 6.4 Albumin 3.7 Globulin 2.70 Albumin/Globulin Ratio 1.37 Medications Medication Current Medications Senna (Senokot) 1 tab HS PO Last administered on 08/26/18at 20:38; Admin Dose 1 TAB; Start 08/17/18 at 21:00 Magnesium Hydroxide (Milk Of Mag) 30 ml BID PRN PO CONSTIPATION; Start 08/17/18 at 12:30 Lactulose (Enulose) 20 gm DAILY PRN PO CONSTIPATION; Start 08/17/18 at 12:30 Bisacodyl (Dulcolax Supp) 10 mg DAILY PRN [place] CONSTIPATION; Start 08/17/18 at 12:30 Acetaminophen (Tylenol Tab) 650 mg Q4H PRN PO MILD PAIN LEVEL 1-3; Start 08/17/18 at 12:30 Miscellaneous Information (Pending Santyl Order For Wound Care) This patient lei... PRN PRN XX WOUND CARE; Start 08/17/18 at 12:30 Apixaban (Eliquis) 2.5 mg BID PO Last administered on 08/28/18at 09:14; Admin Dose 2.5 MG; Start 08/17/18 at 21:00 Cholecalciferol (Vitamin D) 1,000 unit DAILY PO Last administered on 08/28/18at 09:13; Admin Dose 1,000 UNIT; Start 08/18/18 at 09:00 Cyanocobalamin (Vitamin B12) 1,000 mcg DAILY PO Last administered on 08/28/18 09:13; Admin Dose 1,000 MCG; Start 08/18/18 at 09:00 Acetaminophen/ Hydrocodone Bitart ([place] (5/325)) 1 tab Q4H PRN PO MODERATE PAIN LEVEL 4-6 Last administered on 08/26/18 06:15; Admin Dose 1 TAB; Start 08/17/18 at 15:00 Levothyroxine Sodium (Synthroid) 125 mcg DAILY@06 PO Last administered on 08/28/18 06:37; Admin Dose 125 MCG; Start 08/18/18 at 06:00 Metoprolol Succinate (Toprol Xl) 25 mg BID PO Last administered on 08/28/18 09:14; Admin Dose 25 MG; Start 08/17/18 at 21:00 Mirtazapine (Remeron) 15 mg HS PO Last administered on 08/27/18 21:19; Admin Dose 15 MG; Start 08/17/18 at 21:00 Multivitamins Therapeutic (Theragran) 1 tab DAILY PO Last administered on 08/28/18 09:14; Admin Dose 1 TAB; Start 08/18/18 at 09:00 Ondansetron HCl (Zofran Inj) 4 mg Q6H PRN IV NAUSEA AND/OR VOMITING; Start 08/17/18 at 15:00 Pantoprazole (Protonix Tab) 40 mg DAILY@06 PO Last administered on 08/28/18 06:37; Admin Dose 40 MG; Start 08/18/18 at 06:00 Tramadol HCl (Ultram) 50 mg Q6H PRN PO BREAKTHROUGH PAIN Last administered on 08/25/18 13:58; Admin Dose 50 MG; Start 08/18/18 at 14:00 Neomycin/ Polymyxin/ Bacitracin (Neosporin Topical Oint) 1 applic BID TOP Last administered on 08/28/18 09:15; Admin Dose 1 APPLIC; Start 08/19/18 at 09:00 Ferrous Sulfate (Ferrous Sulfate (Ec)) 325 mg DAILY PO Last administered on 08/28/18 09:15; Admin Dose 325 MG; Start 08/20/18 at 14:00 Acetaminophen/ Hydrocodone Bitart ([place] (5/325)) 2 tab Q4H PRN PO SEVERE PAIN LEVEL 7-10 Last administered on 08/28/18 09:14; Admin Dose 2 TAB; Start 08/22/18 at 11:00 Lidocaine (Lidoderm) 1 patch DAILY TD Last administered on 08/28/18at 09:13; Admin Dose 1 PATCH; Start 08/22/18 at 16:00 Ciprofloxacin (Cipro) 250 mg BID@06,18 PO Last administered on 08/28/18at 06:37; Admin Dose 250 MG; Start 08/23/18 at 18:00; Stop 08/30/18 at 17:59 Polyethylene Glycol (Miralax) 17 gm DAILY PRN PO CONSTIPATION; Start 08/23/18 at 13:30 Docusate Sodium (Colace) 100 mg BID PO Last administered on 08/28/18at 10:16; Admin Dose 100 MG; Start 08/28/18 at 10:00 BILLY HATCH MD Aug 28, 2018 13:35
[2018-08-28 14:00] VITALS: BP 94/52; PULSE 70; RESP 20
[2018-08-28 19:35] VITALS: BP 92/57; PULSE 76; RESP 18
[2018-08-28] MEDS: MIRTAZAPINE 15 MG TAB PO SCH (21:17)
[2018-08-28] MEDS: SENNA TAB PO SCH (21:18)
[2018-08-29 02:07] VITALS: BP 114/65; PULSE 82; RESP 18
[2018-08-29] MEDS: PANTOPRAZOLE (EC) 40 MG TAB PO SCH (06:18)
[2018-08-29] MEDS: LEVOTHYROXINE 125 MCG TAB PO SCH (06:18)
[2018-08-29] MEDS: CIPROFLOXACIN 250 MG TAB PO SCH ×2 (06:18→18:00)
[2018-08-29 07:00] VITALS: BP 115/69; PULSE 74; RESP 18
--- NOTE | 2018-08-29 08:55 | CONS ---
Assessment/Plan Assessment/Plan Hospital Course (Demo Recall) 1. Mechanical fall at home with fracture of right side of pelvis and a nondisplaced S3 vertebrae fracture. She has been cleared to do weightbearing with a walker. She is now on acute rehab unit. Her pain has decreased and she is making good progress with physical therapy. 2. Anemia. She has iron deficiency and I will start on iron supplements. Will check CBC tomorrow. 3. Mild dehydration, now improved with IV fluids. 4. Hyponatremia, corrected 5. Atrial fibrillation, chronic, controlled rate, on Eliquis for stroke prevention. 6. Recent left total shoulder replacement which seems intact at this time and no evidence of trauma. She saw . He is the orthopedic surgeon who replaced her left shoulder. 7. Gastroesophageal reflux disease. 8. Osteoarthritis. 9. Multiple joint replacements. 10. Dysphasia , she has been seen by speech therapy. 11. Dysuria will order a urine and a urine culture. She has just finished a course of Cipro.. Consultation Date/Type/Reason Admit Date/Time Aug 17, 2018 at 11:55 Initial Consult Date Type of Consult medicine Date/Time of Note DATE: 08/29/18 TIME: 08:53 24 HR Interval Summary Free Text/Dictation Taya is being seen in medical follow-up. She has no new complaints. She seems to be doing well. She is participating with physical therapy and making good progress. Exam/Review of Systems Exam Vitals Vital Signs Date Temp Pulse Resp B/P (MAP) Pulse Ox O2 O2 Flow FiO2 Time Delivery Rate 08/29/18 97.7 74 18 115/69 95 Room Air 07:00 (84) Intake and Output 08/28/18 08/28/18 08/29/18 1515:00 23:00 07:00 IntakeIntake Total 200 ml 680 ml 750 ml BalanceBalance 200 ml 680 ml 750 ml Constitutional: alert, oriented, frail Respiratory: clear to auscultation, normal air movement Cardiovascular: irregular rhythm Gastrointestinal: soft, non-tender Musculoskeletal: nl extremities to inspection Results Result Diagram: 08/28/1818 08/28/18 0618 Medications Medication Current Medications Senna (Senokot) 1 tab HS PO Last administered on 08/28/18at 21:18; Admin Dose 1 TAB; Start 08/17/18 at 21:00 Magnesium Hydroxide (Milk Of Mag) 30 ml BID PRN PO CONSTIPATION; Start 08/17/18 at 12:30 Lactulose (Enulose) 20 gm DAILY PRN PO CONSTIPATION; Start 08/17/18 at 12:30 Bisacodyl (Dulcolax Supp) 10 mg DAILY PRN [place] CONSTIPATION; Start 08/17/18 at 12:30 Acetaminophen (Tylenol Tab) 650 mg Q4H PRN PO MILD PAIN LEVEL 1-3; Start 08/17/18 at 12:30 Miscellaneous Information (Pending [facility] Order For Wound Care) This patient lei... PRN PRN XX WOUND CARE; Start 08/17/18 at 12:30 Apixaban (Eliquis) 2.5 mg BID PO Last administered on 08/28/18 21:18; Admin Dose 2.5 MG; Start 08/17/18 at 21:00 Cholecalciferol (Vitamin D) 1,000 unit DAILY PO Last administered on 08/28/18 09:13; Admin Dose 1,000 UNIT; Start 08/18/18 at 09:00 Cyanocobalamin (Vitamin B12) 1,000 mcg DAILY PO Last administered on 08/28/18 09:13; Admin Dose 1,000 MCG; Start 08/18/18 at 09:00 Acetaminophen/ Hydrocodone Bitart ([place] (5/325)) 1 tab Q4H PRN PO MODERATE PAIN LEVEL 4-6 Last administered on 08/26/18 06:15; Admin Dose 1 TAB; Start 08/17/18 at 15:00 Levothyroxine Sodium (Synthroid) 125 mcg DAILY@06 PO Last administered on 08/29/18 06:18; Admin Dose 125 MCG; Start 08/18/18 at 06:00 Metoprolol Succinate (Toprol Xl) 25 mg BID PO Last administered on 08/28/18 21:19; Admin Dose 25 MG; Start 08/17/18 at 21:00 Mirtazapine (Remeron) 15 mg HS PO Last administered on 08/28/18 21:17; Admin Dose 15 MG; Start 08/17/18 at 21:00 Multivitamins Therapeutic (Theragran) 1 tab DAILY PO Last administered on 08/28/18 09:14; Admin Dose 1 TAB; Start 08/18/18 at 09:00 Ondansetron HCl (Zofran Inj) 4 mg Q6H PRN IV NAUSEA AND/OR VOMITING; Start 08/17/18 at 15:00 Pantoprazole (Protonix Tab) 40 mg DAILY@06 PO Last administered on 08/29/18 06:18; Admin Dose 40 MG; Start 08/18/18 at 06:00 Tramadol HCl (Ultram) 50 mg Q6H PRN PO BREAKTHROUGH PAIN Last administered on 08/25/18 13:58; Admin Dose 50 MG; Start 08/18/18 at 14:00 Neomycin/ Polymyxin/ Bacitracin (Neosporin Topical Oint) 1 applic BID TOP Last administered on 08/28/18 21:19; Admin Dose 1 APPLIC; Start 08/19/18 at 09:00 Ferrous Sulfate (Ferrous Sulfate (Ec)) 325 mg DAILY PO Last administered on 08/28/18 09:15; Admin Dose 325 MG; Start 08/20/18 at 14:00 Acetaminophen/ Hydrocodone Bitart ([place] (5/325)) 2 tab Q4H PRN PO SEVERE PAIN LEVEL 7-10 Last administered on 08/28/18 21:17; Admin Dose 2 TAB; Start 08/22/18 at 11:00 Lidocaine (Lidoderm) 1 patch DAILY TD Last administered on 08/28/18 09:13; Admin Dose 1 PATCH; Start 08/22/18 at 16:00 Ciprofloxacin (Cipro) 250 mg BID@06,18 PO Last administered on 08/29/18 06:18; Admin Dose 250 MG; Start 08/23/18 at 18:00; Stop 08/30/18 at 17:59 Polyethylene Glycol (Miralax) 17 gm DAILY PRN PO CONSTIPATION; Start 08/23/18 at 13:30 Docusate Sodium (Colace) 100 mg BID PO Last administered on 08/28/18 21:17; Admin Dose 100 MG; Start 08/28/18 at 10:00 BILLY HATCH MD Aug 29, 2018 08:55
[2018-08-29] MEDS: NEOMYC/POLYMYX/BACIT 30 GM OINT TOP SCH ×2 (09:09→20:13)
[2018-08-29] MEDS: HYDROCODONE/APAP (5/325) TAB PO PRN ×2 (09:09→20:12)
[2018-08-29] MEDS: FERROUS SULFATE (EC) 325 MG TAB PO SCH (09:10)
[2018-08-29] MEDS: CYANOCOBALAMIN 500 MCG TAB PO SCH (09:10)
[2018-08-29] MEDS: DOCUSATE SODIUM 100 MG CAP PO SCH ×2 (09:10→20:12)
[2018-08-29] MEDS: CHOLECALCIFEROL 1,000 UNIT TAB PO SCH (09:10)
[2018-08-29] MEDS: APIXABAN 5 MG TABLET PO SCH ×2 (09:11→20:11)
[2018-08-29] MEDS: METOPROLOL (XL) 25 MG TAB PO SCH ×2 (09:12→20:12)
[2018-08-29] MEDS: MULTIVITAMINS THERAPEUTIC TAB PO SCH (09:12)
[2018-08-29] MEDS: LIDOCAINE 5% PATCH TD SCH (09:12)
--- NOTE | 2018-08-29 13:30 | PN ---
Date/Time of Note Date/Time of Note DATE: 08/29/18 TIME: 13:29 Subjective Doing well with therapy Objective Vital Signs Date Temp Pulse Resp B/P (MAP) Pulse Ox O2 O2 Flow FiO2 Time Delivery Rate 08/29/18 97.7 74 18 115/69 95 Room Air 07:00 (84) Intake and Output 08/28/18 08/28/18 08/29/18 1414:59 22:59 06:59 IntakeIntake Total 200 ml 680 ml 750 ml BalanceBalance 200 ml 680 ml 750 ml Exam s transfers s ambulation pulm-cta Results/Medications Result Diagram: 08/28/1861708/28/18617 Medications Current Medications Senna (Senokot) 1 tab HS PO Last administered on 08/28/18at 21:18; Admin Dose 1 TAB; Start 08/17/18 at 21:00 Magnesium Hydroxide (Milk Of Mag) 30 ml BID PRN PO CONSTIPATION; Start 08/17/18 at 12:30 Lactulose (Enulose) 20 gm DAILY PRN PO CONSTIPATION; Start 08/17/18 at 12:30 Bisacodyl (Dulcolax Supp) 10 mg DAILY PRN [place] CONSTIPATION; Start 08/17/18 at 12:30 Acetaminophen (Tylenol Tab) 650 mg Q4H PRN PO MILD PAIN LEVEL 1-3; Start 08/17/18 at 12:30 [facility] This patient lei... PRN PRN XX WOUND CARE; Start 08/17/18 at 12:30 Apixaban (Eliquis) 2.5 mg BID PO Last administered on 08/29/18at 09:11; Admin Dose 2.5 MG; Start 08/17/18 at 21:00 Cholecalciferol (Vitamin D) 1,000 unit DAILY PO Last administered on 08/29/18 09:10; Admin Dose 1,000 UNIT; Start 08/18/18 at 09:00 Cyanocobalamin (Vitamin B12) 1,000 mcg DAILY PO Last administered on 08/29/18 09:10; Admin Dose 1,000 MCG; Start 08/18/18 at 09:00 Acetaminophen/ Hydrocodone Bitart ([place] (5/325)) 1 tab Q4H PRN PO MODERATE PAIN LEVEL 4-6 Last administered on 08/26/18 06:15; Admin Dose 1 TAB; Start 08/17/18 at 15:00 Levothyroxine Sodium (Synthroid) 125 mcg DAILY@06 PO Last administered on 08/29/18 06:18; Admin Dose 125 MCG; Start 08/18/18 at 06:00 Metoprolol Succinate (Toprol Xl) 25 mg BID PO Last administered on 08/29/18 09:12; Admin Dose 25 MG; Start 08/17/18 at 21:00 Mirtazapine (Remeron) 15 mg HS PO Last administered on 08/28/18 21:17; Admin Dose 15 MG; Start 08/17/18 at 21:00 Multivitamins Therapeutic (Theragran) 1 tab DAILY PO Last administered on 08/29/18 09:12; Admin Dose 1 TAB; Start 08/18/18 at 09:00 Ondansetron HCl (Zofran Inj) 4 mg Q6H PRN IV NAUSEA AND/OR VOMITING; Start 08/17/18 at 15:00 Pantoprazole (Protonix Tab) 40 mg DAILY@06 PO Last administered on 08/29/18 06:18; Admin Dose 40 MG; Start 08/18/18 at 06:00 Tramadol HCl (Ultram) 50 mg Q6H PRN PO BREAKTHROUGH PAIN Last administered on 08/25/18 13:58; Admin Dose 50 MG; Start 08/18/18 at 14:00 Neomycin/ Polymyxin/ Bacitracin (Neosporin Topical Oint) 1 applic BID TOP Last administered on 08/29/18 09:09; Admin Dose 1 APPLIC; Start 08/19/18 at 09:00 Ferrous Sulfate (Ferrous Sulfate (Ec)) 325 mg DAILY PO Last administered on 08/29/18 09:10; Admin Dose 325 MG; Start 08/20/18 at 14:00 Acetaminophen/ Hydrocodone Bitart ([place] (5/325)) 2 tab Q4H PRN PO SEVERE PAIN LEVEL 7-10 Last administered on 08/29/18 09:09; Admin Dose 2 TAB; Start 08/22/18 at 11:00 Lidocaine (Lidoderm) 1 patch DAILY TD Last administered on 08/29/18 09:12; Admin Dose 1 PATCH; Start 08/22/18 at 16:00 Ciprofloxacin (Cipro) 250 mg BID@06,18 PO Last administered on 08/29/18at 06:18; Admin Dose 250 MG; Start 08/23/18 at 18:00; Stop 08/30/18 at 17:59 Polyethylene Glycol (Miralax) 17 gm DAILY PRN PO CONSTIPATION; Start 08/23/18 at 13:30 Docusate Sodium (Colace) 100 mg BID PO Last administered on 08/29/18at 09:10; Admin Dose 100 MG; Start 08/28/18 at 10:00 Assessment/Plan Additional Assessment/Plan Rehab- Pelvic disruption with superior and inferior pubic rami fracture, right sacral fracture, and nondisplaced S3 fracture. Excellent progress, continue rehab Acute pain syndrome- continue current meds GI- continue bowel program - await C & S History of arthritis affecting multiple joints with history of bilateral total hip arthroplasty, history of right shoulder hemiarthroplasty and a history of right total knee replacement. Atrial fibrillation. Gastroesophageal reflux disease. Hypothyroidism. TRUMAN ALAS MD Aug 29, 2018 13:30
[2018-08-29 14:00] VITALS: BP 109/58; PULSE 72; RESP 18
[2018-08-29 19:25] VITALS: BP 127/68; PULSE 75; RESP 18
[2018-08-29] MEDS: MIRTAZAPINE 15 MG TAB PO SCH (20:12)
[2018-08-29] MEDS: SENNA TAB PO SCH (20:13)
[2018-08-30 02:00] VITALS: BP 118/65; PULSE 72; RESP 18
[2018-08-30] MEDS: PANTOPRAZOLE (EC) 40 MG TAB PO SCH (06:27)
[2018-08-30] MEDS: CIPROFLOXACIN 250 MG TAB PO SCH (06:27)
[2018-08-30] MEDS: LEVOTHYROXINE 125 MCG TAB PO SCH (06:27)
[2018-08-30] MEDS: HYDROCODONE/APAP (5/325) TAB PO PRN ×2 (06:33→20:32)
[2018-08-30 07:00] VITALS: BP 151/55; PULSE 73; RESP 18
[2018-08-30] MEDS: DOCUSATE SODIUM 100 MG CAP PO SCH ×2 (09:00→20:32)
[2018-08-30] MEDS: CHOLECALCIFEROL 1,000 UNIT TAB PO SCH (09:23)
[2018-08-30] MEDS: MULTIVITAMINS THERAPEUTIC TAB PO SCH (09:23)
[2018-08-30] MEDS: NEOMYC/POLYMYX/BACIT 30 GM OINT TOP SCH ×2 (09:23→20:35)
[2018-08-30] MEDS: FERROUS SULFATE (EC) 325 MG TAB PO SCH (09:23)
[2018-08-30] MEDS: CYANOCOBALAMIN 500 MCG TAB PO SCH (09:24)
[2018-08-30] MEDS: METOPROLOL (XL) 25 MG TAB PO SCH ×2 (09:24→20:32)
[2018-08-30] MEDS: APIXABAN 5 MG TABLET PO SCH ×2 (09:24→20:35)
[2018-08-30] MEDS: LIDOCAINE 5% PATCH TD SCH (09:24)
--- NOTE | 2018-08-30 11:01 | CONS ---
Assessment/Plan Assessment/Plan Assessment/Plan (Daily) 1. Pelvic fx with now less pain. 2. Atrial fib, on eliquis 3. GERD, quiescent 4. UTI, rx'd Consultation Date/Type/Reason Admit Date/Time Aug 17, 2018 at 11:55 Initial Consult Date Date/Time of Note DATE: 08/30/18 TIME: 10:59 Detailed Summary Respiratory: No shortness of breath Cardiovascular: No chest pain, No lightheadedness Gastrointestinal: no complaints Genitourinary: no complaints Musculoskeletal: other (less pelvic pain) Exam/Review of Systems Exam Vitals Vital Signs Date Temp Pulse Resp B/P (MAP) Pulse Ox O2 O2 Flow FiO2 Time Delivery Rate 08/30/18 98.3 73 18 151/55 98 Room Air 07:00 (87) Intake and Output 08/29/18 08/29/18 08/30/18 1515:00 23:00 07:00 IntakeIntake Total 1920 ml 650 ml OutputOutput Total 600 ml BalanceBalance 1320 ml 650 ml Neck: No jvd Respiratory: clear to auscultation Cardiovascular: regular rate and rhythm Gastrointestinal: soft Extremities: No edema, No tenderness Results Result Diagram: 08/28/1861708/28/18617 Medications Medication Current Medications Senna (Senokot) 1 tab HS PO Last administered on 08/28/18at 21:18; Admin Dose 1 TAB; Start 08/17/18 at 21:00 Magnesium Hydroxide (Milk Of Mag) 30 ml BID PRN PO CONSTIPATION; Start 08/17/18 at 12:30 Lactulose (Enulose) 20 gm DAILY PRN PO CONSTIPATION; Start 08/17/18 at 12:30 Bisacodyl (Dulcolax Supp) 10 mg DAILY PRN [place] CONSTIPATION; Start 08/17/18 at 12:30 Acetaminophen (Tylenol Tab) 650 mg Q4H PRN PO MILD PAIN LEVEL 1-3; Start 08/17/18 at 12:30 Miscellaneous Information (Pending [facility]yl Order For Wound Care) This patient lei... PRN PRN XX WOUND CARE; Start 08/17/18 at 12:30 Apixaban (Eliquis) 2.5 mg BID PO Last administered on 08/30/18at 09:24; Admin Dose 2.5 MG; Start 08/17/18 at 21:00 Cholecalciferol (Vitamin D) 1,000 unit DAILY PO Last administered on 08/30/18 09:23; Admin Dose 1,000 UNIT; Start 08/18/18 at 09:00 Cyanocobalamin (Vitamin B12) 1,000 mcg DAILY PO Last administered on 08/30/18 09:24; Admin Dose 1,000 MCG; Start 08/18/18 at 09:00 Acetaminophen/ Hydrocodone Bitart ([place] (5/325)) 1 tab Q4H PRN PO MODERATE PAIN LEVEL 4-6 Last administered on 08/26/18 06:15; Admin Dose 1 TAB; Start 08/17/18 at 15:00 Levothyroxine Sodium (Synthroid) 125 mcg DAILY@06 PO Last administered on 08/30/18 06:27; Admin Dose 125 MCG; Start 08/18/18 at 06:00 Metoprolol Succinate (Toprol Xl) 25 mg BID PO Last administered on 08/30/18 09:24; Admin Dose 25 MG; Start 08/17/18 at 21:00 Mirtazapine (Remeron) 15 mg HS PO Last administered on 08/29/18 20:12; Admin Dose 15 MG; Start 08/17/18 at 21:00 Multivitamins Therapeutic (Theragran) 1 tab DAILY PO Last administered on 08/30/18 09:23; Admin Dose 1 TAB; Start 08/18/18 at 09:00 Ondansetron HCl (Zofran Inj) 4 mg Q6H PRN IV NAUSEA AND/OR VOMITING; Start 08/17/18 at 15:00 Pantoprazole (Protonix Tab) 40 mg DAILY@06 PO Last administered on 08/30/18 06:27; Admin Dose 40 MG; Start 08/18/18 at 06:00 Tramadol HCl (Ultram) 50 mg Q6H PRN PO BREAKTHROUGH PAIN Last administered on 08/25/18 13:58; Admin Dose 50 MG; Start 08/18/18 at 14:00 Neomycin/ Polymyxin/ Bacitracin (Neosporin Topical Oint) 1 applic BID TOP Last administered on 08/30/18 09:23; Admin Dose 1 APPLIC; Start 08/19/18 at 09:00 Ferrous Sulfate (Ferrous Sulfate (Ec)) 325 mg DAILY PO Last administered on 08/30/18 09:23; Admin Dose 325 MG; Start 08/20/18 at 14:00 Acetaminophen/ Hydrocodone Bitart ([place] (5/325)) 2 tab Q4H PRN PO SEVERE PAIN LEVEL 7-10 Last administered on 08/30/18 06:33; Admin Dose 2 TAB; Start 08/22/18 at 11:00 Lidocaine (Lidoderm) 1 patch DAILY TD Last administered on 08/30/18 09:24; Admin Dose 1 PATCH; Start 08/22/18 at 16:00 Ciprofloxacin (Cipro) 250 mg BID@06,18 PO Last administered on 08/30/18 06:27; Admin Dose 250 MG; Start 08/23/18 at 18:00; Stop 08/30/18 at 17:59 Polyethylene Glycol (Miralax) 17 gm DAILY PRN PO CONSTIPATION; Start 08/23/18 at 13:30 Docusate Sodium (Colace) 100 mg BID PO Last administered on 08/29/18 09:10; Admin Dose 100 MG; Start 08/28/18 at 10:00 MAXI ALCAZAR MD Aug 30, 2018 11:01
--- NOTE | 2018-08-30 11:18 | PN ---
Date/Time of Note Date/Time of Note DATE: 08/30/18 TIME: 11:17 Subjective Comfortable Objective Vital Signs Date Temp Pulse Resp B/P (MAP) Pulse Ox O2 O2 Flow FiO2 Time Delivery Rate 08/30/18 98.3 73 18 151/55 98 Room Air 07:00 (87) Intake and Output 08/29/18 08/29/18 08/30/18 1414:59 22:59 06:59 IntakeIntake Total 1920 ml 650 ml OutputOutput Total 600 ml BalanceBalance 1320 ml 650 ml Exam pulm-cta sba ambulation Results/Medications Result Diagram: 08/28/1861708/28/18617 Medications Current Medications Senna (Senokot) 1 tab HS PO Last administered on 08/28/18at 21:18; Admin Dose 1 TAB; Start 08/17/18 at 21:00 Magnesium Hydroxide (Milk Of Mag) 30 ml BID PRN PO CONSTIPATION; Start 08/17/18 at 12:30 Lactulose (Enulose) 20 gm DAILY PRN PO CONSTIPATION; Start 08/17/18 at 12:30 Bisacodyl (Dulcolax Supp) 10 mg DAILY PRN [place] CONSTIPATION; Start 08/17/18 at 12:30 Acetaminophen (Tylenol Tab) 650 mg Q4H PRN PO MILD PAIN LEVEL 1-3; Start 08/17/18 at 12:30 [facility] This patient lei... PRN PRN XX WOUND CARE; Start 08/17/18 at 12:30 Apixaban (Eliquis) 2.5 mg BID PO Last administered on 08/30/18 09:24; Admin Dose 2.5 MG; Start 08/17/18 at 21:00 Cholecalciferol (Vitamin D) 1,000 unit DAILY PO Last administered on 08/30/18 09:23; Admin Dose 1,000 UNIT; Start 08/18/18 at 09:00 Cyanocobalamin (Vitamin B12) 1,000 mcg DAILY PO Last administered on 08/30/18 09:24; Admin Dose 1,000 MCG; Start 08/18/18 at 09:00 Acetaminophen/ Hydrocodone Bitart ([place] (5/325)) 1 tab Q4H PRN PO MODERATE PAIN LEVEL 4-6 Last administered on 08/26/18 06:15; Admin Dose 1 TAB; Start 08/17/18 at 15:00 Levothyroxine Sodium (Synthroid) 125 mcg DAILY@06 PO Last administered on 08/30/18 06:27; Admin Dose 125 MCG; Start 08/18/18 at 06:00 Metoprolol Succinate (Toprol Xl) 25 mg BID PO Last administered on 08/30/18 09:24; Admin Dose 25 MG; Start 08/17/18 at 21:00 Mirtazapine (Remeron) 15 mg HS PO Last administered on 08/29/18 20:12; Admin Dose 15 MG; Start 08/17/18 at 21:00 Multivitamins Therapeutic (Theragran) 1 tab DAILY PO Last administered on 08/30/18 09:23; Admin Dose 1 TAB; Start 08/18/18 at 09:00 Ondansetron HCl (Zofran Inj) 4 mg Q6H PRN IV NAUSEA AND/OR VOMITING; Start 08/17/18 at 15:00 Pantoprazole (Protonix Tab) 40 mg DAILY@06 PO Last administered on 08/30/18 06:27; Admin Dose 40 MG; Start 08/18/18 at 06:00 Tramadol HCl (Ultram) 50 mg Q6H PRN PO BREAKTHROUGH PAIN Last administered on 08/25/18 13:58; Admin Dose 50 MG; Start 08/18/18 at 14:00 Neomycin/ Polymyxin/ Bacitracin (Neosporin Topical Oint) 1 applic BID TOP Last administered on 08/30/18 09:23; Admin Dose 1 APPLIC; Start 08/19/18 at 09:00 Ferrous Sulfate (Ferrous Sulfate (Ec)) 325 mg DAILY PO Last administered on 08/30/18 09:23; Admin Dose 325 MG; Start 08/20/18 at 14:00 Acetaminophen/ Hydrocodone Bitart ([place] (5/325)) 2 tab Q4H PRN PO SEVERE PAIN LEVEL 7-10 Last administered on 08/30/18 06:33; Admin Dose 2 TAB; Start 08/22/18 at 11:00 Lidocaine (Lidoderm) 1 patch DAILY TD Last administered on 08/30/18 09:24; Admin Dose 1 PATCH; Start 08/22/18 at 16:00 Ciprofloxacin (Cipro) 250 mg BID@06,18 PO Last administered on 08/30/18at 06:27; Admin Dose 250 MG; Start 08/23/18 at 18:00; Stop 08/30/18 at 17:59 Polyethylene Glycol (Miralax) 17 gm DAILY PRN PO CONSTIPATION; Start 08/23/18 at 13:30 Docusate Sodium (Colace) 100 mg BID PO Last administered on 08/29/18at 09:10; Admin Dose 100 MG; Start 08/28/18 at 10:00 Assessment/Plan Additional Assessment/Plan Rehab- Pelvic disruption with superior and inferior pubic rami fracture, right sacral fracture, and nondisplaced S3 fracture. Steady functional gains, continue treatment plan Acute pain syndrome- continue current meds GI- continue bowel program - await C & S History of arthritis affecting multiple joints with history of bilateral total hip arthroplasty, history of right shoulder hemiarthroplasty and a history of right total knee replacement. Atrial fibrillation. Gastroesophageal reflux disease. Hypothyroidism. TRUMAN ALAS MD Aug 30, 2018 11:18
[2018-08-30 14:00] VITALS: BP 109/59; PULSE 72; RESP 16
[2018-08-30 19:48] VITALS: BP 113/60; PULSE 77; RESP 17
[2018-08-30] MEDS: MIRTAZAPINE 15 MG TAB PO SCH (20:33)
[2018-08-30] MEDS: SENNA TAB PO SCH (20:33)
[2018-08-31 03:44] VITALS: BP 156/75; PULSE 66; RESP 17
[2018-08-31] MEDS: LEVOTHYROXINE 125 MCG TAB PO SCH (06:17)
[2018-08-31] MEDS: PANTOPRAZOLE (EC) 40 MG TAB PO SCH (06:20)
[2018-08-31 07:00] VITALS: BP 168/84; PULSE 76; RESP 18
[2018-08-31] MEDS: DOCUSATE SODIUM 100 MG CAP PO SCH ×2 (09:00→20:20)
[2018-08-31] MEDS: APIXABAN 5 MG TABLET PO SCH ×2 (09:25→20:13)
[2018-08-31] MEDS: METOPROLOL (XL) 25 MG TAB PO SCH ×2 (09:26→20:14)
[2018-08-31] MEDS: CYANOCOBALAMIN 500 MCG TAB PO SCH (09:27)
[2018-08-31] MEDS: HYDROCODONE/APAP (5/325) TAB PO PRN ×2 (09:27→20:13)
[2018-08-31] MEDS: FERROUS SULFATE (EC) 325 MG TAB PO SCH (09:27)
[2018-08-31] MEDS: NEOMYC/POLYMYX/BACIT 30 GM OINT TOP SCH ×2 (09:28→20:20)
[2018-08-31] MEDS: CHOLECALCIFEROL 1,000 UNIT TAB PO SCH (09:28)
[2018-08-31] MEDS: LIDOCAINE 5% PATCH TD SCH (09:28)
[2018-08-31] MEDS: MULTIVITAMINS THERAPEUTIC TAB PO SCH (09:34)
[2018-08-31 14:00] VITALS: BP 101/58; PULSE 76; RESP 18
--- NOTE | 2018-08-31 14:17 | CONS ---
Assessment/Plan Assessment/Plan Assessment/Plan (Daily) 1. Pelvic fx now more mobile and without pain 2. Dysphagia, swallow eval needed 3. BP controlled Consultation Date/Type/Reason Admit Date/Time Aug 17, 2018 at 11:55 Initial Consult Date Date/Time of Note DATE: 08/31/18 TIME: 14:14 Detailed Summary Respiratory: No shortness of breath Cardiovascular: No chest pain, No lightheadedness Gastrointestinal: other (intermittent diff swallowing solid food present pre admit) Genitourinary: no complaints Musculoskeletal: other (no pelvic pain) Exam/Review of Systems Exam Vitals Vital Signs Date Temp Pulse Resp B/P (MAP) Pulse Ox O2 O2 Flow FiO2 Time Delivery Rate 08/31/18 97.8 76 18 168/84 100 Room Air 07:00 (112) Intake and Output 08/30/18 08/30/18 08/31/18 1515:00 23:00 07:00 IntakeIntake Total 880 ml 300 ml OutputOutput Total 350 ml BalanceBalance 880 ml -50 ml Neck: non-tender; No jvd Respiratory: clear to auscultation Gastrointestinal: soft Extremities: No edema Results Result Diagram: 08/28/1861708/28/18617 Medications Medication Current Medications Senna (Senokot) 1 tab HS PO Last administered on 08/30/18at 20:33; Admin Dose 1 TAB; Start 08/17/18 at 21:00 Magnesium Hydroxide (Milk Of Mag) 30 ml BID PRN PO CONSTIPATION; Start 08/17/18 at 12:30 Lactulose (Enulose) 20 gm DAILY PRN PO CONSTIPATION; Start 08/17/18 at 12:30 Bisacodyl (Dulcolax Supp) 10 mg DAILY PRN [place] CONSTIPATION; Start 08/17/18 at 12:30 Acetaminophen (Tylenol Tab) 650 mg Q4H PRN PO MILD PAIN LEVEL 1-3; Start 08/17/18 at 12:30 Miscellaneous Information (Pending [facility] Order For Wound Care) This patient lei... PRN PRN XX WOUND CARE; Start 08/17/18 at 12:30 Apixaban (Eliquis) 2.5 mg BID PO Last administered on 08/31/18at 09:25; Admin Dose 2.5 MG; Start 08/17/18 at 21:00 Cholecalciferol (Vitamin D) 1,000 unit DAILY PO Last administered on 08/31/18 09:28; Admin Dose 1,000 UNIT; Start 08/18/18 at 09:00 Cyanocobalamin (Vitamin B12) 1,000 mcg DAILY PO Last administered on 08/31/18 09:27; Admin Dose 1,000 MCG; Start 08/18/18 at 09:00 Acetaminophen/ Hydrocodone Bitart ([place] (5/325)) 1 tab Q4H PRN PO MODERATE PAIN LEVEL 4-6 Last administered on 08/26/18 06:15; Admin Dose 1 TAB; Start 08/17/18 at 15:00 Levothyroxine Sodium (Synthroid) 125 mcg DAILY@06 PO Last administered on 08/31/18 06:17; Admin Dose 125 MCG; Start 08/18/18 at 06:00 Metoprolol Succinate (Toprol Xl) 25 mg BID PO Last administered on 08/31/18 09:26; Admin Dose 25 MG; Start 08/17/18 at 21:00 Mirtazapine (Remeron) 15 mg HS PO Last administered on 08/30/18 20:33; Admin Dose 15 MG; Start 08/17/18 at 21:00 Multivitamins Therapeutic (Theragran) 1 tab DAILY PO Last administered on 08/31/18 09:34; Admin Dose 1 TAB; Start 08/18/18 at 09:00 Ondansetron HCl (Zofran Inj) 4 mg Q6H PRN IV NAUSEA AND/OR VOMITING; Start 08/17/18 at 15:00 Pantoprazole (Protonix Tab) 40 mg DAILY@06 PO Last administered on 08/31/18 06:20; Admin Dose 40 MG; Start 08/18/18 at 06:00 Tramadol HCl (Ultram) 50 mg Q6H PRN PO BREAKTHROUGH PAIN Last administered on 08/25/18 13:58; Admin Dose 50 MG; Start 08/18/18 at 14:00 Neomycin/ Polymyxin/ Bacitracin (Neosporin Topical Oint) 1 applic BID TOP Last administered on 08/31/18 09:28; Admin Dose 1 APPLIC; Start 08/19/18 at 09:00 Ferrous Sulfate (Ferrous Sulfate (Ec)) 325 mg DAILY PO Last administered on 08/31/18 09:27; Admin Dose 325 MG; Start 08/20/18 at 14:00 Acetaminophen/ Hydrocodone Bitart ([place] (5/325)) 2 tab Q4H PRN PO SEVERE PAIN LEVEL 7-10 Last administered on 08/31/18 09:27; Admin Dose 2 TAB; Start 08/22/18 at 11:00 Lidocaine (Lidoderm) 1 patch DAILY TD Last administered on 08/31/18 09:28; Admin Dose 1 PATCH; Start 08/22/18 at 16:00 Polyethylene Glycol (Miralax) 17 gm DAILY PRN PO CONSTIPATION; Start 08/23/18 at 13:30 Docusate Sodium (Colace) 100 mg BID PO Last administered on 08/30/18at 20:32; Admin Dose 100 MG; Start 08/28/18 at 10:00 MAXI ALCAZAR MD Aug 31, 2018 14:17
[2018-08-31 20:00] VITALS: BP 99/56; PULSE 69; RESP 18
[2018-08-31] MEDS: MIRTAZAPINE 15 MG TAB PO SCH (20:13)
[2018-08-31] MEDS: SENNA TAB PO SCH (20:20)
[2018-09-01 02:00] VITALS: BP 139/69; PULSE 85; RESP 18
[2018-09-01] MEDS: PANTOPRAZOLE (EC) 40 MG TAB PO SCH (06:34)
[2018-09-01] MEDS: LEVOTHYROXINE 125 MCG TAB PO SCH (06:34)
[2018-09-01 07:00] VITALS: BP 141/82; PULSE 82; RESP 18
[2018-09-01] MEDS: FERROUS SULFATE (EC) 325 MG TAB PO SCH (09:07)
[2018-09-01] MEDS: DOCUSATE SODIUM 100 MG CAP PO SCH ×2 (09:07→20:15)
[2018-09-01] MEDS: MULTIVITAMINS THERAPEUTIC TAB PO SCH (09:07)
[2018-09-01] MEDS: CYANOCOBALAMIN 500 MCG TAB PO SCH (09:07)
[2018-09-01] MEDS: APIXABAN 5 MG TABLET PO SCH ×2 (09:07→20:14)
[2018-09-01] MEDS: CHOLECALCIFEROL 1,000 UNIT TAB PO SCH (09:07)
[2018-09-01] MEDS: METOPROLOL (XL) 25 MG TAB PO SCH ×2 (09:08→20:14)
[2018-09-01] MEDS: LIDOCAINE 5% PATCH TD SCH (09:09)
[2018-09-01] MEDS: NEOMYC/POLYMYX/BACIT 30 GM OINT TOP SCH ×2 (09:10→20:16)
--- NOTE | 2018-09-01 10:35 | CONS ---
Assessment/Plan Assessment/Plan Assessment/Plan (Daily) 1. Continues to do well post pelvic fx with pt 2. BP controlled 3. Sl inc Potassium will repeat Consultation Date/Type/Reason Admit Date/Time Aug 17, 2018 at 11:55 Initial Consult Date Date/Time of Note DATE: 09/01/18 TIME: 10:33 Detailed Summary Cardiovascular: No chest pain, No lightheadedness, No orthopenea Gastrointestinal: no complaints Genitourinary: no complaints Musculoskeletal: no complaints Exam/Review of Systems Exam Vitals Vital Signs Date Temp Pulse Resp B/P (MAP) Pulse Ox O2 O2 Flow FiO2 Time Delivery Rate 09/01/18 97.8 85 18 139/69 97 Room Air 02:00 (92) Intake and Output 08/31/18 08/31/18 09/01/18 1515:00 23:00 07:00 IntakeIntake Total 420 ml 1300 ml 100 ml OutputOutput Total 400 ml 600 ml BalanceBalance 20 ml 700 ml 100 ml Neck: No jvd Respiratory: clear to auscultation Cardiovascular: regular rate and rhythm Gastrointestinal: soft Extremities: No edema Results Result Diagram: 09/01/18 0631 09/01/18 0631 Results 24hrs Laboratory Tests Test 09/01/18 06:31 White Blood Count 5.4 Red Blood Count 3.62 L Hemoglobin 11.5 L Hematocrit 35.2 L Mean Corpuscular Volume 97.2 Mean Corpuscular Hemoglobin 31.8 Mean Corpuscular Hemoglobin Concent 32.7 Red Cell Distribution Width 12.6 Platelet Count 206 # Mean Platelet Volume 11.4 H Immature Granulocytes % 0.400 Neutrophils % 73.2 Lymphocytes % 5.6 L Monocytes % 14.3 H Eosinophils % 5.4 Basophils % 1.1 Nucleated Red Blood Cells % 0.0 Immature Granulocytes # 0.020 Neutrophils # 3.9 Lymphocytes # 0.3 L Monocytes # 0.8 Eosinophils # 0.3 Basophils # 0.1 Nucleated Red Blood Cells # 0.0 Sodium Level 134 L Potassium Level 5.2 H Chloride Level 99 Carbon Dioxide Level 27 Anion Gap 8 Blood Urea Nitrogen 24 H Creatinine 0.83 Est Glomerular Filtrat Rate mL/min Glucose Level 73 Calcium Level 9.7 Phosphorus Level 4.0 Magnesium Level 2.0 Medications Medication Current Medications Senna (Senokot) 1 tab HS PO Last administered on 08/30/18at 20:33; Admin Dose 1 TAB; Start 08/17/18 at 21:00 Magnesium Hydroxide (Milk Of Mag) 30 ml BID PRN PO CONSTIPATION; Start 08/17/18 at 12:30 Lactulose (Enulose) 20 gm DAILY PRN PO CONSTIPATION; Start 08/17/18 at 12:30 Bisacodyl (Dulcolax Supp) 10 mg DAILY PRN [place] CONSTIPATION; Start 08/17/18 at 12:30 Acetaminophen (Tylenol Tab) 650 mg Q4H PRN PO MILD PAIN LEVEL 1-3; Start 08/17/18 at 12:30 Miscellaneous Information (Pending Santyl Order For Wound Care) This patient lei... PRN PRN XX WOUND CARE; Start 08/17/18 at 12:30 Apixaban (Eliquis) 2.5 mg BID PO Last administered on 09/01/18 09:07; Admin Dose 2.5 MG; Start 08/17/18 at 21:00 Cholecalciferol (Vitamin D) 1,000 unit DAILY PO Last administered on 09/01/18 09:07; Admin Dose 1,000 UNIT; Start 08/18/18 at 09:00 Cyanocobalamin (Vitamin B12) 1,000 mcg DAILY PO Last administered on 09/01/18 09:07; Admin Dose 1,000 MCG; Start 08/18/18 at 09:00 Acetaminophen/ Hydrocodone Bitart ([place] (5/325)) 1 tab Q4H PRN PO MODERATE PAIN LEVEL 4-6 Last administered on 08/26/18 06:15; Admin Dose 1 TAB; Start 08/17/18 at 15:00 Levothyroxine Sodium (Synthroid) 125 mcg DAILY@06 PO Last administered on 08/22 06:34; Admin Dose 125 MCG; Start 08/18/18 at 06:00 Metoprolol Succinate (Toprol Xl) 25 mg BID PO Last administered on 09/01/18 09:08; Admin Dose 25 MG; Start 08/17/18 at 21:00 Mirtazapine (Remeron) 15 mg HS PO Last administered on 08/31/18 20:13; Admin Dose 15 MG; Start 08/17/18 at 21:00 Multivitamins Therapeutic (Theragran) 1 tab DAILY PO Last administered on 09/01/18 09:07; Admin Dose 1 TAB; Start 08/18/18 at 09:00 Ondansetron HCl (Zofran Inj) 4 mg Q6H PRN IV NAUSEA AND/OR VOMITING; Start 08/17/18 at 15:00 Pantoprazole (Protonix Tab) 40 mg DAILY@06 PO Last administered on 09/01/18 06:34; Admin Dose 40 MG; Start 08/18/18 at 06:00 Tramadol HCl (Ultram) 50 mg Q6H PRN PO BREAKTHROUGH PAIN Last administered on 08/25/18 13:58; Admin Dose 50 MG; Start 08/18/18 at 14:00 Neomycin/ Polymyxin/ Bacitracin (Neosporin Topical Oint) 1 applic BID TOP Last administered on 09/01/18 09:10; Admin Dose 1 APPLIC; Start 08/19/18 at 09:00 Ferrous Sulfate (Ferrous Sulfate (Ec)) 325 mg DAILY PO Last administered on 09/01/18 09:07; Admin Dose 325 MG; Start 08/20/18 at 14:00 Acetaminophen/ Hydrocodone Bitart ([place] (5/325)) 2 tab Q4H PRN PO SEVERE PAIN LEVEL 7-10 Last administered on 08/31/18 20:13; Admin Dose 2 TAB; Start 08/22/18 at 11:00 Lidocaine (Lidoderm) 1 patch DAILY TD Last administered on 09/01/18 09:09; Admin Dose 1 PATCH; Start 08/22/18 at 16:00 Polyethylene Glycol (Miralax) 17 gm DAILY PRN PO CONSTIPATION; Start 08/23/18 at 13:30 Docusate Sodium (Colace) 100 mg BID PO Last administered on 09/01/18 09:07; Admin Dose 100 MG; Start 08/28/18 at 10:00 MAXI ALCAZAR MD Sep 01, 2018 10:35
[2018-09-01] MEDS: HYDROCODONE/APAP (5/325) TAB PO PRN ×2 (11:01→20:13)
[2018-09-01 14:00] VITALS: BP 105/60; PULSE 71; RESP 18
--- NOTE | 2018-09-01 14:00 | PN ---
Date/Time of Note Date/Time of Note DATE: 09/01/18 TIME: 14:00 Objective Vital Signs Date Temp Pulse Resp B/P (MAP) Pulse Ox O2 O2 Flow FiO2 Time Delivery Rate 09/01/18 98.3 82 18 141/82 92 Room Air 07:00 (101) Intake and Output 08/31/18 08/31/18 09/01/18 1515:00 23:00 07:00 IntakeIntake Total 420 ml 1300 ml 100 ml OutputOutput Total 400 ml 600 ml BalanceBalance 20 ml 700 ml 100 ml Exam INTERDISCIPLINARY TEAM CONFERENCE Physical Exam: Pulm- cta Abd-soft BOWEL- Cont BLADDER-Cont SKIN- intact OT- DRESSING-s BATHING-s TOILETING-s PT- BED MOBILITY-s TRANSFERS-s AMBULATION-s 150 feet A/P- Interdisciplinary team conference held today. Please see interdisciplinary sheet. Working toward d.c. on 09/04 with post discharge follow up of physical th tunde, occupational therapy. Results/Medications Result Diagram: 09/01/18 0631 09/01/18 1304 Results 24 hrs Laboratory Tests Test 09/01/18 06:31 09/01/18 13:04 White Blood Count 5.4 Red Blood Count 3.62 L Hemoglobin 11.5 L Hematocrit 35.2 L Mean Corpuscular Volume 97.2 Mean Corpuscular Hemoglobin 31.8 Mean Corpuscular Hemoglobin Concent 32.7 Red Cell Distribution Width 12.6 Platelet Count 206 # Mean Platelet Volume 11.4 H Immature Granulocytes % 0.400 Neutrophils % 73.2 Lymphocytes % 5.6 L Monocytes % 14.3 H Eosinophils % 5.4 Basophils % 1.1 Nucleated Red Blood Cells % 0.0 Immature Granulocytes # 0.020 Neutrophils # 3.9 Lymphocytes # 0.3 L Monocytes # 0.8 Eosinophils # 0.3 Basophils # 0.1 Nucleated Red Blood Cells # 0.0 Sodium Level 134 L Potassium Level 5.2 H 4.5 Chloride Level 99 Carbon Dioxide Level 27 Anion Gap 8 Blood Urea Nitrogen 24 H Creatinine 0.83 Est Glomerular Filtrat Rate mL/min Glucose Level 73 Calcium Level 9.7 Phosphorus Level 4.0 Magnesium Level 2.0 Medications Current Medications Senna (Senokot) 1 tab HS PO Last administered on 08/30/18at 20:33; Admin Dose 1 TAB; Start 08/17/18 at 21:00 Magnesium Hydroxide (Milk Of Mag) 30 ml BID PRN PO CONSTIPATION; Start 08/17/18 at 12:30 Lactulose (Enulose) 20 gm DAILY PRN PO CONSTIPATION; Start 08/17/18 at 12:30 Bisacodyl (Dulcolax Supp) 10 mg DAILY PRN [place] CONSTIPATION; Start 08/17/18 at 12:30 Acetaminophen (Tylenol Tab) 650 mg Q4H PRN PO MILD PAIN LEVEL 1-3; Start 08/17/18 at 12:30 Miscellaneous Information (Pending Santyl Order For Wound Care) This patient lei... PRN PRN XX WOUND CARE; Start 08/17/18 at 12:30 Apixaban (Eliquis) 2.5 mg BID PO Last administered on 09/01/18 09:07; Admin Dose 2.5 MG; Start 08/17/18 at 21:00 Cholecalciferol (Vitamin D) 1,000 unit DAILY PO Last administered on 09/01/18 09:07; Admin Dose 1,000 UNIT; Start 08/18/18 at 09:00 Cyanocobalamin (Vitamin B12) 1,000 mcg DAILY PO Last administered on 09/01/18 09:07; Admin Dose 1,000 MCG; Start 08/18/18 at 09:00 Acetaminophen/ Hydrocodone Bitart ([place] (5/325)) 1 tab Q4H PRN PO MODERATE PAIN LEVEL 4-6 Last administered on 08/26/18 06:15; Admin Dose 1 TAB; Start 08/17/18 at 15:00 Levothyroxine Sodium (Synthroid) 125 mcg DAILY@06 PO Last administered on 09/01/18 06:34; Admin Dose 125 MCG; Start 08/18/18 at 06:00 Metoprolol Succinate (Toprol Xl) 25 mg BID PO Last administered on 09/01/18 09:08; Admin Dose 25 MG; Start 08/17/18 at 21:00 Mirtazapine (Remeron) 15 mg HS PO Last administered on 08/31/18 20:13; Admin Dose 15 MG; Start 08/17/18 at 21:00 Multivitamins Therapeutic (Theragran) 1 tab DAILY PO Last administered on 09/01/18 09:07; Admin Dose 1 TAB; Start 08/18/18 at 09:00 Ondansetron HCl (Zofran Inj) 4 mg Q6H PRN IV NAUSEA AND/OR VOMITING; Start 08/17/18 at 15:00 Pantoprazole (Protonix Tab) 40 mg DAILY@06 PO Last administered on 09/01/18 06:34; Admin Dose 40 MG; Start 08/18/18 at 06:00 Tramadol HCl (Ultram) 50 mg Q6H PRN PO BREAKTHROUGH PAIN Last administered on 08/25/18 13:58; Admin Dose 50 MG; Start 08/18/18 at 14:00 Neomycin/ Polymyxin/ Bacitracin (Neosporin Topical Oint) 1 applic BID TOP Last administered on 09/01/18 09:10; Admin Dose 1 APPLIC; Start 08/19/18 at 09:00 Ferrous Sulfate (Ferrous Sulfate (Ec)) 325 mg DAILY PO Last administered on 09/01/18 09:07; Admin Dose 325 MG; Start 08/20/18 at 14:00 Acetaminophen/ Hydrocodone Bitart ([place] (5/325)) 2 tab Q4H PRN PO SEVERE PAIN LEVEL 7-10 Last administered on 09/01/18 11:01; Admin Dose 2 TAB; Start 08/22/18 at 11:00 Lidocaine (Lidoderm) 1 patch DAILY TD Last administered on 09/01/18 09:09; Admin Dose 1 PATCH; Start 08/22/18 at 16:00 Polyethylene Glycol (Miralax) 17 gm DAILY PRN PO CONSTIPATION; Start 08/23/18 at 13:30 Docusate Sodium (Colace) 100 mg BID PO Last administered on 09/01/18 09:07; Admin Dose 100 MG; Start 08/28/18 at 10:00 TRUMAN ALAS MD Sep 01, 2018 14:00
[2018-09-01 19:52] VITALS: BP 124/66; PULSE 70; RESP 16
[2018-09-01] MEDS: MIRTAZAPINE 15 MG TAB PO SCH (20:12)
[2018-09-01] MEDS: SENNA TAB PO SCH (20:15)
[2018-09-02 02:00] VITALS: BP 136/89; PULSE 77; RESP 18
[2018-09-02] MEDS: PANTOPRAZOLE (EC) 40 MG TAB PO SCH (06:14)
[2018-09-02] MEDS: LEVOTHYROXINE 125 MCG TAB PO SCH (06:14)
[2018-09-02 07:30] VITALS: BP 123/71; PULSE 84; RESP 20
--- NOTE | 2018-09-02 08:35 | CONS ---
Assessment/Plan Assessment/Plan Assessment/Plan (Daily) 1. Pelvic fx still mildly symptomatic 2. Atrial fib with controlled ventric response on eliquis 3. BP is nl 4. Hx GERD quiescent and intermittent dysphagia (eval by genoveva), no intervention needed Consultation Date/Type/Reason Admit Date/Time Aug 17, 2018 at 11:55 Initial Consult Date Date/Time of Note DATE: 09/02/18 TIME: 08:33 Detailed Summary Respiratory: No cough, No shortness of breath Cardiovascular: No chest pain Gastrointestinal: no complaints Genitourinary: no complaints Musculoskeletal: other (yesterday noted mild right groin pain, this am she is asx) Exam/Review of Systems Exam Vitals Vital Signs Date Temp Pulse Resp B/P (MAP) Pulse Ox O2 O2 Flow FiO2 Time Delivery Rate 09/02/18 97.7 77 18 136/89 97 Room Air 02:00 (105) Intake and Output 09/01/18 09/01/18 09/02/18 1515:00 23:00 07:00 IntakeIntake Total 200 ml 1200 ml 200 ml OutputOutput Total 200 ml 800 ml 150 ml BalanceBalance 0 ml 400 ml 50 ml Neck: No jvd Respiratory: clear to auscultation Cardiovascular: irregular rhythm Gastrointestinal: soft Extremities: No edema Results Result Diagram: 09/01/18 0631 09/01/18 1304 Results 24hrs Laboratory Tests Test 09/01/18 13:04 Potassium Level 4.5 Medications Medication Current Medications Senna (Senokot) 1 tab HS PO Last administered on 08/30/18at 20:33; Admin Dose 1 TAB; Start 08/17/18 at 21:00 Magnesium Hydroxide (Milk Of Mag) 30 ml BID PRN PO CONSTIPATION; Start 08/17/18 at 12:30 Lactulose (Enulose) 20 gm DAILY PRN PO CONSTIPATION; Start 08/17/18 at 12:30 Bisacodyl (Dulcolax Supp) 10 mg DAILY PRN [place] CONSTIPATION; Start 08/17/18 at 12:30 Acetaminophen (Tylenol Tab) 650 mg Q4H PRN PO MILD PAIN LEVEL 1-3; Start 08/17/18 at 12:30 [facility] This patient lei... PRN PRN XX WOUND CARE; Start 08/17/18 at 12:30 Apixaban (Eliquis) 2.5 mg BID PO Last administered on 09/01/18 20:14; Admin Dose 2.5 MG; Start 08/17/18 at 21:00 Cholecalciferol (Vitamin D) 1,000 unit DAILY PO Last administered on 09/01/18 09:07; Admin Dose 1,000 UNIT; Start 08/18/18 at 09:00 Cyanocobalamin (Vitamin B12) 1,000 mcg DAILY PO Last administered on 09/01/18 09:07; Admin Dose 1,000 MCG; Start 08/18/18 at 09:00 Acetaminophen/ Hydrocodone Bitart ([place] (5/325)) 1 tab Q4H PRN PO MODERATE PAIN LEVEL 4-6 Last administered on 09/01/18 20:13; Admin Dose 1 TAB; Start 08/17/18 at 15:00 Levothyroxine Sodium (Synthroid) 125 mcg DAILY@06 PO Last administered on 09/02/18 06:14; Admin Dose 125 MCG; Start 08/18/18 at 06:00 Metoprolol Succinate (Toprol Xl) 25 mg BID PO Last administered on 09/01/18 20:14; Admin Dose 25 MG; Start 08/17/18 at 21:00 Mirtazapine (Remeron) 15 mg HS PO Last administered on 09/01/18 20:12; Admin Dose 15 MG; Start 08/17/18 at 21:00 Multivitamins Therapeutic (Theragran) 1 tab DAILY PO Last administered on 09/01/18 09:07; Admin Dose 1 TAB; Start 08/18/18 at 09:00 Ondansetron HCl (Zofran Inj) 4 mg Q6H PRN IV NAUSEA AND/OR VOMITING; Start 08/17/18 at 15:00 Pantoprazole (Protonix Tab) 40 mg DAILY@06 PO Last administered on 09/02/18 06:14; Admin Dose 40 MG; Start 08/18/18 at 06:00 Tramadol HCl (Ultram) 50 mg Q6H PRN PO BREAKTHROUGH PAIN Last administered on 08/25/18 13:58; Admin Dose 50 MG; Start 08/18/18 at 14:00 Neomycin/ Polymyxin/ Bacitracin (Neosporin Topical Oint) 1 applic BID TOP Last administered on 09/01/18 20:16; Admin Dose 1 APPLIC; Start 08/19/18 at 09:00 Ferrous Sulfate (Ferrous Sulfate (Ec)) 325 mg DAILY PO Last administered on 09/01/18 09:07; Admin Dose 325 MG; Start 08/20/18 at 14:00 Acetaminophen/ Hydrocodone Bitart ([place] (5/325)) 2 tab Q4H PRN PO SEVERE PAIN LEVEL 7-10 Last administered on 09/01/18 11:01; Admin Dose 2 TAB; Start 08/22/18 at 11:00 Lidocaine (Lidoderm) 1 patch DAILY TD Last administered on 09/01/18 09:09; Admin Dose 1 PATCH; Start 08/22/18 at 16:00 Polyethylene Glycol (Miralax) 17 gm DAILY PRN PO CONSTIPATION; Start 08/23/18 at 13:30 Docusate Sodium (Colace) 100 mg BID PO Last administered on 09/01/18 09:07; Ad min Dose 100 MG; Start 08/28/18 at 10:00 MAXI ALCAZAR MD Sep 02, 2018 08:35
[2018-09-02] MEDS: HYDROCODONE/APAP (5/325) TAB PO PRN (08:49)
[2018-09-02] MEDS: NEOMYC/POLYMYX/BACIT 30 GM OINT TOP SCH (09:00)
[2018-09-02] MEDS: DOCUSATE SODIUM 100 MG CAP PO SCH (11:12)
[2018-09-02] MEDS: FERROUS SULFATE (EC) 325 MG TAB PO SCH (11:12)
[2018-09-02] MEDS: CHOLECALCIFEROL 1,000 UNIT TAB PO SCH (11:13)
[2018-09-02] MEDS: CYANOCOBALAMIN 500 MCG TAB PO SCH (11:13)
[2018-09-02] MEDS: MULTIVITAMINS THERAPEUTIC TAB PO SCH (11:14)
[2018-09-02] MEDS: METOPROLOL (XL) 25 MG TAB PO SCH (11:14)
[2018-09-02] MEDS: APIXABAN 5 MG TABLET PO SCH (11:15)
[2018-09-02] MEDS: LIDOCAINE 5% PATCH TD SCH (11:16)
[2018-09-02 14:00] VITALS: BP 106/59; PULSE 77; RESP 18
--- NOTE | 2018-09-04 08:40 | DS ---
Date/Time of Note Date/Time of Note DATE: 09/04/18 TIME: 08:38 Discharge Summary Admission/Discharge Info Admit Date/Time Aug 17, 2018 at 11:55 Discharge Date/Time Sep 02, 2018 at 16:15 Discharge Diagnosis 1. Pelvic disruption with superior and inferior pubic rami fracture, right sacral fracture, and nondisplaced S3 fracture. 2. History of arthritis affecting multiple joints with history of bilateral total hip arthroplasty, history of right shoulder hemiarthroplasty and a history of right total knee replacement. 3. Atrial fibrillation. 3. Dehydration. 4. Gastroesophageal reflux disease. 5. Hypothyroidism. 6. Improvements in self-care and mobility. Patient Condition: Good Hospital Course The patient was admitted for comprehensive interdisciplinary rehabilitation and made steady functional gains from a Max level to a SBA level for self care tasks and mobility including ambulating over 150 feet with the use of a FWW. Despite steady functional gains, patient nervous about return home, and would like to go to lower level of care. Patient being discharged to SNF for continued care at lower level. The DC meds are per the medication reconciliation sheet. The discharge equipment recommendations include: FWW, BSC, shower chair. The patient will follow up with PMD upon DC. Home Meds Reported Medications Mirtazapine* (Remeron*) 15 Mg Tablet, 15 MG PO HS, TAB 04/24/18 Ranitidine Hcl* (Ranitidine Hcl*) 300 Mg Tablet, 300 MG PO HS, #30 TAB 04/24/18 Pantoprazole* (Protonix*) 40 Mg Tablet.dr, 40 MG PO BID, TAB 04/24/18 Ondansetron Hcl* (Zofran*) 4 Mg Tab, 4 MG PO Q6H PRN for NAUSEA AND OR VOMITING, TAB 04/24/18 Cholecalciferol (Vitamin D3) 5,000 Unit Tablet, 5000 UNIT PO DAILY, TAB 04/24/18 Cyanocobalamin* (Vitamin B-12*) 1,000 Mcg Tablet.sa, 1000 MCG PO DAILY, TAB 04/24/18 Apixaban* (Eliquis*) 5 Mg Tablet, 5 MG PO BID, TAB 04/24/18 Levothyroxine Sodium* (Levoxyl*) 125 Mcg Tablet, 125 MCG PO BEFORE BREAKFAST, #30 TAB 04/24/18 Metoprolol Succinate* (Toprol XL*) 25 Mg Tab.sr.24h, 25 MG PO BID, #30 TAB 04/24/18 Naloxegol Oxalate (Movantik) 25 Mg Tablet, 25 MG PO AC BREAKFAST, TAB 04/24/18 Multivitamins* (Theragran*) 1 Tab Tab, 1 TAB PO DAILY, TAB 04/24/18 Esomeprazole Mag Trihydrate (Nexium) 40 Mg Capsule.dr, 40 MG PO DAILY, #30 CAP 04/24/18 Acetaminophen* (Acetaminophen*) 500 MG Extra Strength Tablet, 500 MG PO Q4H PRN for PAIN AND OR ELEVATED TEMP, TAB 04/24/18 Primary Care Provider Not On Staff Doctor TRUMAN ALAS MD Sep 04, 2018 08:40
== END 2018-09-02 16:15 | DRG 560 ==
LOC: VRC 11:55
PROVIDERS: ADMIT Internal Medicine; ATTEND Internal Medicine
DX: S32.810D Multiple fractures of pelvis with stable disruption of pelvic ring, subsequent encounter for fracture with routine healing (principal); E87.1 Hypo-osmolality and hyponatremia; F33.1 Major depressive disorder, recurrent, moderate; N39.0 Urinary tract infection, site not specified; S32.10XD Unspecified fracture of sacrum, subsequent encounter for fracture with routine healing; R52 Pain, unspecified; E86.0 Dehydration; K21.9 Gastro-esophageal reflux disease without esophagitis; E03.9 Hypothyroidism, unspecified; Z74.09 Other reduced mobility; Z91.81 History of falling; D64.9 Anemia, unspecified; Z79.02 Long term (current) use of antithrombotics/antiplatelets; R13.10 Dysphagia, unspecified; I48.91 Unspecified atrial fibrillation
CPT/HCPCS: 80048; 80053; 81001; 82728; 83540; 83735; 84100; 84132; 85025; 87081; 87086; 92526; 92610; 97110; 97116; 97150; 97163; 97166; 97530; 97535; 97542